=== PATIENT | male | born 1945 | race Caucasian/White ===

== ENCOUNTER → 2016-04-16 | Outpatient (CLI) | payer BC, OTHER ==
[~2016-04-16] MED LIST: ANSHCCR TOP; ASCO10003 PO; DUTACAP PO; HYDR25TA4 PO; HYDR25TA5 PO; KRIL1CAP18 PO; MULT-190 PO; PRLSR20 PO; PSYL48.59 PO; QUIN40TA18 PO; RXC5 PO; VITAMIN D PO; VITAMIN E PO
[2016-04-16 17:46] LABS: BLOOD UREA NITROGEN 27 mg/dl (7-18); BUN/CREATININE RATIO 22.4 (10-20); CARBON DIOXIDE 27 mmol/L (21-32); CHLORIDE 104 mmol/L (98-107); GLUCOSE 96 mg/dl (70-99); SODIUM 139 mmol/L (136-145)
== END | disposition home or self-care (01) ==
LOC: C.LABPVFM 15:32
PROVIDERS: ATTEND Family Medicine
DX: Z12.5 Encounter for screening for malignant neoplasm of prostate (principal); Z11.59 Encounter for screening for other viral diseases; I10 Essential (primary) hypertension

== ENCOUNTER 2016-05-24 19:12 | Emergency (ER) | payer BC, OTHER ==
[~2016-05-24] VITALS: Ht 177.8 cm; Wt 104.7 kg
[~2016-05-24 19:12] MED LIST changes: -ANSHCCR TOP; -ASCO10003 PO; -DUTACAP PO; -HYDR25TA5 PO; -KRIL1CAP18 PO; -MULT-190 PO; -PRLSR20 PO; -PSYL48.59 PO; -QUIN40TA18 PO; -RXC5 PO; -VITAMIN D PO; -VITAMIN E PO
[2016-05-24 19:20] VITALS: BP 177/112; PULSE 89; TEMP 36.7; Ht 177.8 cm; Wt 104.7 kg
[2016-05-24 19:24] VITALS: O2SAT 92
[2016-05-24] MEDS ORDERED: HYDR25TA5 PO (19:58)
--- NOTE | 2016-05-24 20:29 | EMERGENCY ROOM VISIT NOTE ---
History First contact with patient: 19:27 Chief Complaint: RESPIRATORY PROBLEMS Stated Complaint: INHALATION OF PEPPER SPRAY- Nursing Triage Summary: "we have a man in here that we had to subdue". report using 2 cans of pepper spray. "I got a dose of pepper spray in the nose". denies resp difficulty History of Present Illness The patient is a 70 year old male who presents to the Emergency Room with complaints of an exposure to pepper spray. 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 He states that he got a small amount of pepper spray in his nose. He reports that he was wrestling on the ground with the person. He reports some mild body aches but denies any specific injuries. He rates his overall discomfort a 2/10. He does report a small amount of burning in the nose but denies any difficulty breathing. He denies head injury. Review of Systems A complete 10-point Review of Systems was discussed with the patient, with pertinent positives and negatives listed in the History of Present Illness. All remaining Review of Systems questions can be considered negative unless otherwise specified. Social History Smoking Status: Never Smoker Marital Status: Housing Status: lives with family Current/Historical Medications Scheduled Dutasteride-Tamsulosin Hcl (Cat), 1 CAP PO QPM Hydrochlorothiazide (Hydrochlorothiazide), 50 MG PO DAILY Omeprazole (Prilosec), 20 MG PO DAILY Quinapril Hcl (Accupril), 40 MG PO DAILY Allergies Coded Allergies: No Known Allergies (Verified , 09/13/14) Physical Exam Vital Signs Date Time Temp Pulse Resp B/P Pulse Ox O2 Delivery O2 Flow Rate FiO2 05/24/16 19:24 92 Room Air 05/24/16 19:20 36.7 89 18 177/112 92 Room Air Physical Exam VITALS: Vitals are noted on the nurse's note and reviewed by myself. Vital signs stable. GENERAL: This is a 70-year-old male, in no acute distress, nondiaphoretic, well- developed well-nourished. SKIN: Capillary reflex less than 2 seconds. HEENT: Normocephalic. PERRLA. EOMI. Nares patent. Nasal mucosa is slightly erythematous with no bleeding. Mucous membranes moist. Neck is supple without cervical spine tenderness. HEART: Regular rate and rhythm without murmurs gallops or rubs. LUNGS: Clear to auscultation bilaterally without wheezes, rales or rhonchi. ABDOMEN: Positive bowel sounds x 4. Soft, nontender. MUSCULOSKELETAL: No gross musculoskeletal defects. No significant tenderness to palpation. Full range of motion throughout. NEURO: Patient was alert and oriented to person place and time. Medical Decision & Procedures Medical Decision The patient was evaluated as above. Poison control was contacted and they recommended simply using a saline spray. The patient was informed of this. He was instructed to return for any worsening symptoms. He verbalized understanding of my assessment and treatment plan and was discharged home in good condition. Impression Primary Impression: Toxic effect of pepper spray Departure Information Dispostion Home / Self-Care Condition GOOD Referrals Jung Coto M.D. (PCP) Patient Instructions [facility] Additional Instructions Saline spray as needed in the nostrils for any irritation. Follow-up with employee health as needed. Problem Qualifiers Primary Impression: Toxic effect of pepper spray Encounter type: initial encounter Injury intent: accidental or unintentional Qualified Codes: T59.3X1A - Toxic effect of lacrimogenic gas, accidental (unintentional), initial encounter
[2016-05-24] MEDS ORDERED: DUTACAP PO (23:28)
[2016-05-24] MEDS ORDERED: PRLSR20 PO (23:28)
[2016-05-24] MEDS ORDERED: QUIN40TA18 PO (23:29)
[2016-08-07] MEDS ORDERED: ANSHCCR TOP (13:55)
[2016-08-07] MEDS ORDERED: KRIL1CAP18 PO (13:57)
[2016-08-07] MEDS ORDERED: ASCO10003 PO (13:57)
[2016-08-07] MEDS ORDERED: MULT-190 PO (13:57)
[2016-08-07] MEDS ORDERED: VITAMIN D PO (13:57)
[2016-08-07] MEDS ORDERED: VITAMIN E PO (13:57)
[2016-08-07] MEDS ORDERED: PSYL48.59 PO (14:03)
[2016-09-15] MEDS ORDERED: RXC5 PO (07:04)
== END 2016-05-24 20:00 | disposition home or self-care (01) ==
LOC: C.EDB 19:14 → C.EDD 20:00
DX: T59.3X1A Toxic effect of lacrimogenic gas, accidental (unintentional), initial encounter (principal); X58.XXXA Exposure to other specified factors, initial encounter; Y99.0 Civilian activity done for income or pay; Y93.89 Activity, other specified; Z79.899 Other long term (current) drug therapy

== ENCOUNTER → 2016-06-26 | Outpatient (CLI) | payer BC ==
[~2016-06-26] MED LIST changes: +ANSHCCR TOP; +ASCO10003 PO; +DUTACAP PO; -HYDR25TA4 PO; +HYDR25TA5 PO; +KRIL1CAP18 PO; +MULT-190 PO; +PRLSR20 PO; +PSYL48.59 PO; +QUIN40TA18 PO; +RXC5 PO; +VITAMIN D PO; +VITAMIN E PO
--- NOTE | 2016-06-26 10:06 | DIAGNOSTIC IMAGING REPORT ---
ORBIT RADIOGRAPHS 3 VIEWS HISTORY: pre-MRI screening. COMPARISON: None. FINDINGS: There are no radiopaque foreign bodies identified within the orbits. IMPRESSION: No radiopaque foreign bodies identified within the orbits. Electronically signed by: Bon Thomas M.D. 06/26/2016 10:05 AM Dictated Date/Time: 06/26/2016 10:05 AM
--- NOTE | 2016-06-26 11:00 | DIAGNOSTIC IMAGING REPORT ---
MRI right shoulder RIGHT UPPER EXT JOINT WITHOUT CLINICAL HISTORY: RIGHT SHOULDER PAIN, ROTATOR CUFF TEAR Right posttraumatic pain TECHNIQUE: MRI multi axial acquisition COMPARISON STUDY: None FINDINGS: Severe degenerative change throughout all major structures of the right shoulder. Severe degenerative changes of the articular services throughout. Subchondral cyst formation is identified within the humeral head and to lesser extent glenoid. Degenerative subchondral cyst formation is also seen in the anterior margin of the humeral head. Rotator cuff shows evidence for full-thickness tear of the supraspinatus tendon at the musculotendinous junction. There is a small amount of fluid within the subdeltoid bursa. There is moderate tendinopathy involving subscapularis tendons. There is moderate tendinopathy with a potential partial tear of the infraspinatus tendon. Biceps tendon shows evidence for a partial thickness tear at its superior margin with moderate degree of surrounding edematous change. A joint effusion is present. There are findings of severe degenerative substance loss of all components of the glenoid labrum. The may be a secondary cellulitis. IMPRESSION: 1. Severe degenerative change right shoulder. 2. Full-thickness tear central aspect of the supraspinatus musculotendinous junction with evidence for superimposed tendinopathy. 3. Partial thickness tear infraspinatus tendon. 4. Mild subscapularis tendinopathy. 5. Considerable degenerative changes of the articular services of the glenohumeral joint with considerable deterioration and substance loss of the glenoid labrum. 6. Probable partial tear biceps tendon 7. Joint effusion with findings consistent with a secondary synovitis. Electronically signed by: Darnell Troy M.D. 06/26/2016 10:58 AM Dictated Date/Time: 06/26/2016 10:52 AM
== END | disposition home or self-care (01) ==
LOC: C.MRIBC 09:42
PROVIDERS: ATTEND Orthopaedic Surgery
DX: S46.891A Other injury of other muscles, fascia and tendons at shoulder and upper arm level, right arm, initial encounter (principal); X58.XXXA Exposure to other specified factors, initial encounter

== ENCOUNTER → 2016-07-25 | Outpatient (CLI) | payer BC ==
[2016-07-25 17:38] LABS: HEMATOCRIT 45.5 % (42-52); MEAN CELL VOLUME 89.7 fL (80-100); MEAN CORPUSCULAR HEMOGLOBIN 30.8 pg (25-34); MEAN CORPUSCULAR HGB CONC 34.3 g/dl (32-36); MEAN PLATELET VOLUME 9.8 fL (7.4-10.4); PLATELET COUNT 251 K/uL (130-400); RED BLOOD COUNT 5.07 M/uL (4.7-6.1); WHITE BLOOD COUNT 8.69 K/uL (4.8-10.8)
[2016-07-25 18:15] LABS: LYME DISEASE AB IGG NEG (NEG); LYME DISEASE AB IGM NEG (NEG)
[2016-07-25 19:05] LABS: ALT/SGPT 38 U/L (12-78); AST/SGOT 26 U/L (15-37); BLOOD UREA NITROGEN 19 mg/dl (7-18); BUN/CREATININE RATIO 19.5 (10-20); CALCIUM 8.8 mg/dl (8.5-10.1); CARBON DIOXIDE 26 mmol/L (21-32); CHLORIDE 105 mmol/L (98-107); CREATININE 0.98 mg/dl (0.60-1.40); GLUCOSE 88 mg/dl (70-99); POTASSIUM 3.7 mmol/L (3.5-5.1); SODIUM 141 mmol/L (136-145)
[2016-07-25 19:17] LABS: ALB/GLOB RATIO 1.3 (0.9-2); ALKALINE PHOSPHATASE 86 U/L (45-117); THYROID STIMULATING HORMONE 0.715 uIu/ml (0.300-4.500)
[2016-07-27 16:02] LABS: LEAD BLOOD 5 MCG/DL (0-9)
[2016-07-31 03:31] LABS: ANTI-CENTROMERE AB <1.0 NEG AI (<1.0 NEG); ANTI-SS-A <1.0 NEG AI (<1.0 NEG); ANTI-SS-B 1.0 POS AI (<1.0 NEG); DNA ds CRITHIDIA NEGATIVE (NEGATIVE); MICROSOMAL AB <1 IU/ML (<9); Sm Antibody <1.0 NEG AI (<1.0 NEG)
== END | disposition home or self-care (01) ==
LOC: C.LABPVFM 13:36
PROVIDERS: ATTEND Family Medicine
DX: R53.83 Other fatigue (principal); M79.1 Myalgia

== ENCOUNTER → 2016-08-07 | Outpatient (CLI) | payer BC, OTHER | END | disposition home or self-care (01) | LOC: C.CTS 13:24 | PROVIDERS: ATTEND Orthopaedic Surgery | DX: M19.011 Primary osteoarthritis, right shoulder (principal) ==

== ENCOUNTER → 2016-08-23 | Outpatient (CLI) | payer BC, OTHER ==
[2016-08-23 18:04] LABS: BASO % 0.3 %; BASO ABS # 0.03 K/uL (0-0.2); COMPLETE YES; HEMATOCRIT 42.8 % (42-52); IG% 0.1 %; LYMPH ABS # 3.04 K/uL (1.2-3.4); MEAN CELL VOLUME 89.5 fL (80-100); MEAN CORPUSCULAR HGB CONC 35.7 g/dl (32-36); MEAN PLATELET VOLUME 9.4 fL (7.4-10.4); MONO % 8.8 %; NEUT % 55.8 %; PLATELET COUNT 241 K/uL (130-400); RED BLOOD COUNT 4.78 M/uL (4.7-6.1)
[2016-08-23 18:31] LABS: ALT/SGPT 40 U/L (12-78); BLOOD UREA NITROGEN 15 mg/dl (7-18); BUN/CREATININE RATIO 17.1 (10-20); CALCIUM 9.2 mg/dl (8.5-10.1); CARBON DIOXIDE 30 mmol/L (21-32); CHLORIDE 105 mmol/L (98-107); GLUCOSE 107 mg/dl (70-99); POTASSIUM 3.9 mmol/L (3.5-5.1); SODIUM 140 mmol/L (136-145)
[2016-08-23 18:33] LABS: ALB/GLOB RATIO 1.2 (0.9-2); ALKALINE PHOSPHATASE 86 U/L (45-117); AST/SGOT 26 U/L (15-37); C-REACTIVE PROTEIN < 0.29 mg/dl (0-0.29)
[2016-08-23 19:24] LABS: LYME DISEASE AB IGG NEG (NEG); LYME DISEASE AB IGM NEG (NEG)
== END | disposition home or self-care (01) ==
LOC: C.LABPVFM 06:00
PROVIDERS: ATTEND Nurse Practitioner Family
DX: R53.83 Other fatigue (principal)

== ENCOUNTER 2016-09-14 10:58 | Inpatient (IN) | payer BC, OTHER ==
[2016-08-07 13:58] VITALS: Ht 177.8 cm; Wt 100.3 kg
--- NOTE | 2016-08-07 14:29 | PAT Medication Instructions ---
Service Date Aug 07, 2016. Current Home Medication List Ascorbic Acid (Vitamin C), 1,000 MG PO QA Dutasteride-Tamsulosin Hcl (Cat), 1 CAP PO QPM Hydrochlorothiazide (Hydrochlorothiazide), 50 MG PO QAM Hydrocortisone (Proctosol Hc), 1 APPLN TOP prn Krill Oil (Megared [place]-3 Krill Oil 500 mg), 1 TAB PO NOON Ocuvite Preservision (Ocuvite Preservision), 1 TAB PO NOON Omeprazole (Prilosec), 20 MG PO QAM Psyllium (Metamucil), 1 DOSE PO BID Quinapril Hcl (Accupril), 80 MG PO HS [Vitamin D], 1 TAB PO QAM [Vitamin E], 1 TAB PO QAM Medication Instructions For Your Scheduled Surgery - Hold the following medications 2 weeks prior to surgery: Krill Oil (Megared [place]-3 Krill Oil 500 mg), 1 TAB PO NOON [Vitamin E], 1 TAB PO QAM - Hold the following medications 24 hours prior to surgery: Quinapril Hcl (Accupril), 80 MG PO HS Hydrocortisone (Proctosol Hc), 1 APPLN TOP prn - Hold the following medications the morning of surgery: [Vitamin D], 1 TAB PO QAM Hydrochlorothiazide (Hydrochlorothiazide), 50 MG PO QAM Psyllium (Metamucil), 1 DOSE PO BID Ocuvite Preservision (Ocuvite Preservision), 1 TAB PO NOON Ascorbic Acid (Vitamin C), 1,000 MG PO QAM - Take the following medications the morning of surgery with a sip of water OTHERWISE NOTHING TO EAT OR DRINK AFTER MIDNIGHT: Omeprazole (Prilosec), 20 MG PO QAM - Take the following medications as scheduled the night before surgery: Dutasteride-Tamsulosin Hcl (Cat), 1 CAP PO QPM Psyllium (Metamucil), 1 DOSE PO BID If you have any questions please call us at [phone] or [phone] or [phone]
--- NOTE | 2016-08-07 15:13 | DIAGNOSTIC IMAGING REPORT ---
CHEST 2 VIEWS ROUTINE HISTORY: Preop. COMPARISON: None. FINDINGS: The lungs are clear. Cardiac silhouette is top normal in size. No pleural effusions. No pneumothorax. IMPRESSION: No acute process. Electronically signed by: Bon Thomas M.D. 08/07/2016 3:12 PM Dictated Date/Time: 08/07/2016 3:10 PM
[2016-08-07 15:20] LABS: BASO % 0.3 %; BASO ABS # 0.03 K/uL (0-0.2); COMPLETE YES; EOS % 1.5 %; HEMATOCRIT 43.2 % (42-52); IG% 0.3 %; LYMPH % 32.1 %; LYMPH ABS # 2.92 K/uL (1.2-3.4); MEAN CELL VOLUME 89.4 fL (80-100); MEAN CORPUSCULAR HEMOGLOBIN 31.1 pg (25-34); MEAN CORPUSCULAR HGB CONC 34.7 g/dl (32-36); MEAN PLATELET VOLUME 9.2 fL (7.4-10.4); MONO % 6.4 %; NEUT % 59.4 %; PLATELET COUNT 239 K/uL (130-400); RED BLOOD COUNT 4.83 M/uL (4.7-6.1)
[2016-08-07 15:22] LABS: URINE APPEARANCE CLEAR (CLEAR); URINE BILIRUBIN NEG (NEG); URINE COLOR YELLOW; URINE NITRITE NEG (NEG); URINE SPECIFIC GRAVITY 1.024 (1.000-1.030); UROBILINOGEN NEG (NEG)
[2016-08-07 15:26] LABS: MANUAL MICROSCOPIC REQUIRED? NO; REVIEW REQ? NO
[2016-08-07 15:30] LABS: PROTHROMBIN TIME (PATIENT) 10.5 SECONDS (9.0-12.0)
[~2016-09-14] VITALS: Ht 177.8 cm; Wt 100.3 kg
[2016-09-14] MEDS: TRANEXAMIC ACID INJ 1,000 MG in SODIUM CHLORIDE 0.9% 100ML 100 ML IV SCH ×2 (06:30→13:13)
--- NOTE | 2016-09-14 09:57 | History & Physical Bridge Note ---
H&P Re-Evaluation Bridge Note: I have examined the patient, reviewed the History & Physical and in the interval since the performance of the History & Physical I have noted the following changes of clinical significance: No changes noted
--- NOTE | 2016-09-14 10:00 | History and Physical ---
History & Physical Date Sep 14, 2016. Chief Complaint Osteoarthritis Right Shoulder History of Present Illness The patient is a 70 year old male with complaints of chronic right shoulder pain Past Medical/Surgical History Hypertension Additional History Hepatic Disease: No Endocrine Disorder: No Kidney Disease: No Hypertension: Yes Heart Disease: No Bleeding Tendencies: No Infectious Diseases: No Allergies Coded Allergies: No Known Allergies (Verified , 08/07/16) Home Medications Scheduled Ascorbic Acid (Vitamin C), 1,000 MG PO QA Dutasteride-Tamsulosin Hcl (Cat), 1 CAP PO QPM Hydrochlorothiazide (Hydrochlorothiazide), 50 MG PO QAM Hydrocortisone (Proctosol Hc), 1 APPLN TOP prn Krill Oil (Megared [place]-3 Krill Oil 500 mg), 1 TAB PO NOON Ocuvite Preservision (Ocuvite Preservision), 1 TAB PO NOON Omeprazole (Prilosec), 20 MG PO QAM Psyllium (Metamucil), 1 DOSE PO BID Quinapril Hcl (Accupril), 80 MG PO HS [Vitamin D], 1 TAB PO QAM [Vitamin E], 1 TAB PO QAM Physical Examination Skin: warm/dry, no rash Eyes: normal inspection, EOMI, sclerae normal ENT: normal ENT inspection, pharynx normal Head: normocephalic, atraumatic Neck: supple, no adenopathy, trachea midline Respiratory/Chest: lungs clear, normal breath sounds, no respiratory distress Cardiovascular: regular rate, rhythm, no edema, no murmur Abdomen / GI: normal bowel sounds, non tender Back: normal inspection Extremities: normal inspection, normal range of motion Neurologic/Psych: no motor/sensory deficits, alert, normal reflexes, oriented x 3 Addiitonal Comments: Limited shoulder range of motion with crepitis Diagnosis Osteoarthritis Right Knee ASA Classification: ASA Class II Plan of Treatment Right Total Shoulder
[~2016-09-14 10:58] MED LIST changes: +ACETAMINOPHEN 500 MG TAB PO SCH; +ATROPINE SULFATE 0.1 MG/ML 5ML SYR IV PRN; +CEFAZOLIN 2000 MG/60 ML D5W 60 ML IV SCH; +EpHEDrine SULFATE INJ 50 MG/ML AMP IV PRN; +FAMOTIDINE 20 MG TAB PO SCH; +GABAPENTIN 300 MG CAP PO SCH; +LACTATED RINGER'S 1000ML 1,000 ML IV SCH; +LACTATED RINGER'S 1000ML IV SCH; +ONDANSETRON INJ 2 MG/ML 2 ML VIAL IV PRN; +ROPIVACAINE 0.5% 5 MG/ML 30 ML VIAL ONE; +ROPIVACAINE 5MG/ML 30 ML 150 MG, BUPIVACAINE/EPINEPHR 0.5% MPF 30 ML, KETOROLAC TROMETH... INFIL SCH; -RXC5 PO
[2016-09-14] MEDS ORDERED: FENTANYL CITRATE INJ 50 MCG/1 ML 2 ML VIAL ONE ×2 (11:30→16:28)
[2016-09-14] MEDS ORDERED: MIDAZOLAM HCL 1 MG/ML 2ML VIAL ONE (11:30)
[2016-09-14 11:45] VITALS: BP 165/92; PULSE 60; TEMP 36.7; O2SAT 97
[2016-09-14] MEDS ORDERED: ORTHO JOINT ANESTHETIC ONE (12:43)
[2016-09-14] MEDS ORDERED: BACITRACIN 50000 UNIT VIAL ONE (12:43)
[2016-09-14] MEDS ORDERED: ROCURONIUM BROMIDE 10 MG/ML 5 ML VIAL ONE (14:15)
[2016-09-14] MEDS ORDERED: EpHEDrine SULFATE 50MG/5ML SYR ONE (14:15)
[2016-09-14] MEDS ORDERED: PROPOFOL IV EMULSION 10 MG/ML 20 ML VIAL IV ONE (14:15)
[2016-09-14] MEDS ORDERED: ONDANSETRON INJ 2 MG/ML 2 ML VIAL ONE (14:15)
[2016-09-14] MEDS ORDERED: DEXAMETHASONE SOD INJ 4 MG/ML VIAL ONE (14:15)
[2016-09-14] MEDS ORDERED: GLYCOPYRROLATE INJ 0.2 MG/ML VIAL ONE (15:41)
[2016-09-14] MEDS ORDERED: NEOSTIGMINE METHYLSULFATE 5 MG/5 ML SYR ONE (15:41)
[2016-09-14] MEDS ORDERED: METOCLOPRAMIDE HCL INJ 5 MG/ML 2 ML VIAL IV PRN (15:45)
[2016-09-14] MEDS ORDERED: BISACODYL 10 MG SUPP PR PRN (15:45)
[2016-09-14] MEDS ORDERED: SOD PHOSPHATE/SOD BIPHOSPHATE ENEMA 132 ML BTL PR PRN (15:45)
[2016-09-14] MEDS ORDERED: MAGNESIUM HYDROXIDE SUSP 30 ML UDC PO PRN (15:45)
[2016-09-14] MEDS ORDERED: NALOXONE HCL 0.4 MG/1 ML VIAL/CARP IV PRN (15:45)
[2016-09-14] MEDS ORDERED: MoRPHine SULFATE 2 MG/ML CARP IV PRN (15:45)
--- NOTE | 2016-09-14 15:45 | [facility] Post Operative Brief Note ---
Immediate Operative Summary Operative Date Sep 14, 2016. Pre-Operative Diagnosis Osteoarthritis Right Shoulder Post-Operative Diagnosis Osteoarthritis Right Shoulder Procedure(s) Performed Right Total Shoulder Arthroplasty, cemented Surgeon Dr. Josh Pulliam Senior Master Scheduler Surgeon(s) Jim Yoo PA-C Estimated Blood Loss 250mL Findings as above Specimens Permanent specimens A: Right humeral head Complication(s) None Disposition Recovery Room / PACU
[2016-09-14] MEDS ORDERED: HYDROmorphone INJ 1 MG/ML SYR IV PRN (16:30)
[2016-09-14] MEDS ORDERED: FENTANYL CITRATE INJ 50 MCG/1 ML 2 ML VIAL IV PRN (16:30)
--- NOTE | 2016-09-14 16:51 | OPERATIVE REPORT ---
DATE OF OPERATION: 09/14/2016 PREOPERATIVE DIAGNOSIS: Primary osteoarthritis of the right shoulder. POSTOPERATIVE DIAGNOSIS: Same. PROCEDURE: Right total shoulder arthroplasty. SURGEON: Dr. Josh Pulliam. PROPERTY DISPOSAL MANAGER: Tyree Yoo PA-C, whose assistance was necessary for positioning of the arm and helping with retraction. ANESTHESIA: General with a right interscalene nerve block. COMPLICATIONS: None. CONDITION: Stable to PACU. IMPLANTS USED: I used a [employer] comprehensive right total shoulder arthroplasty system with a size 13 mini pressfit stem, a 46 x 18 eccentric humeral head and a medium glenoid. The glenoid was cemented with Palacos-G cement. INDICATIONS: Kyler is a pleasant 70-year-old male who has been having a 2-year history of increasing pain and tightness of his right shoulder. He did have a rotator cuff repair done 20 years ago. MRI showed an intact rotator cuff and he elected to undergo a right total shoulder arthroplasty. DESCRIPTION OF PROCEDURE: On 09/14/2016, he arrived at [facility] for the above procedure. He was seen in the preoperative holding area and the operative extremity was identified and signed. He was given a preoperative antibiotic and a right interscalene nerve block. He was taken back to the operating room, laid on the table in supine position and put under general anesthesia. The right shoulder was prepped and draped in sterile fashion. Time-out was done and the patient and operative extremity was properly identified. A deltopectoral approach was used. Dissection was taken down through the fascia and the anterior shoulder was exposed. The long head of biceps tendon was tenodesed to the upper border of the pec major. The subscapularis was then tenotomized off the lesser tuberosity. Soft tissue releases were done and the proximal humerus was exposed. Sequential reaming up to a size 13 reamer was done. Off the final reamer, a proximal humeral resection guide was placed and the proximal humerus was resected at 135 degrees of inclination and 30 degrees of retroversion. Additional osteophytes were removed and the glenoid was exposed. Time was spent doing an anterior superior labral release. I did not release the posterior labrum or the anterior inferior glenohumeral ligament. The [employer] signature guide was then snapped on to the anterior aspect of the glenoid. The guidepin was then placed in the total shoulder arthroplasty hole. The glenoid measured to be a size medium and the glenoid was reamed. The central Regenerex peg hole was then drilled followed by the peripheral peg holes. A trial glenoid seemed to be a good fit. The final medium sized glenoid was then cemented in place with Palacos-G cement. Once cement had hardened, the proximal humerus was exposed. Sequential broaching up to a size 13 broach was done. A 46 x 18 mm eccentric head was trialed and seemed to be a good fit. I had a 50% translation both posteriorly and inferiorly. I was able to get through a full range of motion. The trial components were then removed. The final size 13 implant was impacted into place followed by the final 46-mm eccentric head. The shoulder was reduced. The surrounding soft tissues were injected with 100 mL of an orthopedic pain control cocktail. The entire joint was then irrigated with 3 liters of normal saline solution with bacitracin. The subscapularis was tenodesed back to the lesser tuberosity with transosseous FiberWire sutures. Two FiberWire sutures were placed in the lateral rotator interval. The axillary nerve was palpated. A drain was placed. The skin was then closed with 2-0 Vicryl and 0 Prolene suture in a Prineo dressing. He was then placed in a regular arm sling, extubated, transferred to a litter and taken to the postanesthesia care unit in stable condition. He tolerated the procedure well. I attest to the content of the Intraoperative Record and any orders documented therein. Any exception s are noted below.
--- NOTE | 2016-09-14 16:52 | DIAGNOSTIC IMAGING REPORT ---
RIGHT SHOULDER MIN 2 VIEWS ROUTINE CLINICAL HISTORY: Post shoulder surgery Right COMPARISON STUDY: Right shoulder 06/20/2016. FINDINGS: The patient is status post a right total shoulder arthroplasty. The hardware appears intact. No definite fracture or dislocation. A surgical drain is in place. Questionable cortical step-off at the scapular tip on the Y view is likely positional. IMPRESSION: Status post right total arthroplasty. Questionable cortical step-off at the scapular tip on the Y view is likely positional. Recommend correlation for pain to exclude the less likely possibility of a fracture. Electronically signed by: Bon Thomas M.D. 09/14/2016 4:50 PM Dictated Date/Time: 09/14/2016 4:48 PM
--- NOTE | 2016-09-14 17:03 | Anesthesiology Progress Note ---
Anesthesia Post Op Note Date & Time Sep 14, 2016 at 17:03 Vital Signs Pain Intensity: 4 Vital Signs Past 12 Hours Date Time Temp Pulse Resp B/P (MAP) Pulse Ox O2 Delivery O2 Flow Rate FiO2 09/14/16 16:55 36.8 64 16 138/72 96 Nasal Cannula 3 09/14/16 16:45 45 16 138/84 96 3 09/14/16 16:35 53 16 131/77 96 Oxymask 10 09/14/16 16:25 56 16 125/82 97 Oxymask 10 09/14/16 16:15 56 16 144/95 97 Oxymask 10 09/14/16 16:07 36. 60 16 162/85 98 Oxymask 10 09/14/16 11:45 36.7 60 18 165/92 97 Room Air Notes Mental Status: alert / awake / arousable, participated in evaluation Pt Amnestic to Procedure: Yes Nausea / Vomiting: adequately controlled Pain: adequately controlled Airway Patency, RR, SpO2: stable & adequate BP & HR: stable & adequate Hydration State: stable & adequate Anesthetic Complications: no major complications apparent
[2016-09-14 17:20] VITALS: BP 149/80; PULSE 48; TEMP 36.4; O2SAT 93; O2SAT 95
[2016-09-14 17:50] VITALS: BP 155/82; PULSE 48; TEMP 36.3; O2SAT 95
[2016-09-14] MEDS: ONDANSETRON INJ 2 MG/ML 2 ML VIAL IV PRN (18:00)
[2016-09-14] MEDS: POTASSIUM CHLORIDE INJ 10 MEQ in SODIUM CHLORIDE 0.9% 1000ML 1,000 ML IV SCH (18:05)
[2016-09-14 18:18] VITALS: BP 150/95; PULSE 59; TEMP 36.3; O2SAT 97
[2016-09-14] MEDS ORDERED: NURSING DECISION MEDICATION ORDER SCH (19:15)
[2016-09-14 19:18] VITALS: BP 134/88; PULSE 73; TEMP 36.4; O2SAT 96
[2016-09-14] MEDS ORDERED: COUGH DROP (SUGAR FREE) LOZ 24 LOZ/1 BOX ONE (19:20)
[2016-09-14] MEDS ORDERED: COUGH DROP (SUGAR FREE) LOZ 24 LOZ/1 BOX PO PRN (19:30)
[2016-09-14] MEDS: KETOROLAC TROMETHAMINE 15 MG/ML VIAL IV. SCH (20:18)
[2016-09-14] MEDS: CEFAZOLIN IV 2,000 MG in DEXTROSE 5% 50ML 50 ML IV SCH (20:18)
[2016-09-14] MEDS ORDERED: QUINAPRIL HCL 10 MG TAB PO SCH (21:00)
[2016-09-14] MEDS ORDERED: QUINAPRIL 40 MG PO SCH (21:00)
[2016-09-14] MEDS ORDERED: SENNA 8.6 MG TAB PO SCH (21:00)
[2016-09-14] MEDS: PANTOprazole SOD 40 MG TAB PO SCH (21:02)
[2016-09-14] MEDS: DOCUSATE SODIUM 100 MG CAP PO SCH (21:04)
[2016-09-14 22:56] VITALS: BP 134/79; PULSE 59; TEMP 36.4; O2SAT 95
[2016-09-14] MEDS: ACETAMINOPHEN IV 1,000 MG in EMPTY BAG 0 ML IV SCH (23:00)
[2016-09-15] MEDS: KETOROLAC TROMETHAMINE 15 MG/ML VIAL IV. SCH ×2 (02:25→07:53)
[2016-09-15 03:30] VITALS: BP 126/75; PULSE 59; TEMP 36.4; O2SAT 94
[2016-09-15] MEDS: POTASSIUM CHLORIDE INJ 10 MEQ in SODIUM CHLORIDE 0.9% 1000ML 1,000 ML IV SCH (03:34)
[2016-09-15] MEDS: CEFAZOLIN IV 2,000 MG in DEXTROSE 5% 50ML 50 ML IV SCH (03:34)
[2016-09-15] MEDS: OXYCODONE HCL IR 5 MG TAB (IMMEDIATE RELEASE) PO PRN ×2 (03:40→13:12)
[2016-09-15] MEDS: ACETAMINOPHEN IV 1,000 MG in EMPTY BAG 0 ML IV SCH (05:58)
[2016-09-15 06:28] LABS: HEMATOCRIT 38.8 % (42-52); MEAN CORPUSCULAR HEMOGLOBIN 30.8 pg (25-34); MEAN CORPUSCULAR HGB CONC 35.1 g/dl (32-36); MEAN PLATELET VOLUME 8.9 fL (7.4-10.4); PLATELET COUNT 194 K/uL (130-400); RED BLOOD COUNT 4.41 M/uL (4.7-6.1); WHITE BLOOD COUNT 14.36 K/uL (4.8-10.8)
[2016-09-15 07:04] LABS: BUN/CREATININE RATIO 16.9 (10-20); CALCIUM 8.2 mg/dl (8.5-10.1); POTASSIUM 3.4 mmol/L (3.5-5.1)
[2016-09-15] MEDS ORDERED: RXC5 PO (07:04)
--- NOTE | 2016-09-15 07:05 | Discharge Instructions ---
Discharge Instructions Date of Service Sep 15, 2016. Admission Reason for Admission: Right Shoulder Degenerative Joint Disease Discharge Discharge Diagnosis / Problem: Right Total Shoulder Discharge Goals Goal(s): Decrease discomfort, Improve function Activity Recommendations Activity Limitations: as noted below . Instructions / Follow-Up Instructions / Follow-Up Activity and Therapy Recommendations: * Wear your sling for 3 weeks, unless otherwise instructed. You may remove your sling to shower and to dress, but otherwise, you should be in your sling at all times, including while sleeping * The shoulder replacement is very stable and you can use your hand while in the sling * Physical Therapy should start about 3-5 days from your day of surgery. Therapy will last about 8-12 weeks * You were shown a series of exercises in the hospital. Do these exercises daily including the exercises you were shown in physical therapy. Medications: * Narcotic You will likely be sent home from the hospital with a prescription for the narcotic pain medication that worked best throughout your stay. * Other medications may be prescribed for specific circumstances. If you have any questions, please call the office at . * Resume previous home medications unless otherwise instructed Dressing Care: You will likely have a Prineo dressing covering your incision. This looks like a glued on clear mesh dressing. Do not remove this dressing until you follow- up in my office in 2-3 weeks. Its pretty hard to peel it off. You may leave the Prineo dressing uncovered or cover it if it is draining a little bit. No further dressing care is required Showering: You may shower 3 days from the day of surgery. Leave the Prineo dressing intact and let the soapy shower water run over it. Do not scrub or soak the dressing or the incision. Things To Watch For: * Drainage from the incision site that occurs more than one week after your surgery. * Increased redness at the incision site. * Fever above 102 degrees Fahrenheit. * Unusual chest pain or shortness of breath. * Call [facility] at with any of the above problems Follow-Up Visit: Follow-up with Dr. Pulliam 2-3 weeks after your day of surgery. An appointment was probably scheduled when you signed-up for surgery in the office. If you have any questions call Office Instructions: More detailed instructions as well as Frequently Asked Questions were provided in a folder by our office when you signed-up for surgery. Please review these instructions when you get home. If you have any further questions or concerns, please feel free to call the office at [phone] Current Hospital Diet Patient's current hospital diet: Regular Diet Discharge Diet Recommended Diet: Regular Diet Procedures Procedures Performed: Right Total Shoulder Arthroplasty, cemented Pending Studies Studies pending at discharge: no Medical Emergencies . Who to Call and When: Medical Emergencies: If at any time you feel your situation is an emergency, please call 911 immediately. . Non-Emergent Contact Non-Emergency issues call your: Surgeon Call Non-Emergent contact if: wound has increased drainage, wound has increased redness . "Provider Documentation" section prepared by Josh Pulliam. . VTE Core Measure Inpt VTE Proph given/why not?: Treatment not indicated
[2016-09-15 07:30] VITALS: BP 114/70; PULSE 58; TEMP 36.7; O2SAT 97
--- NOTE | 2016-09-15 08:17 | PROGRESS NOTE ---
DATE: 09/15/2016 CHIEF COMPLAINT: Status post right total shoulder arthroplasty, postop day #1. PROGRESS: Kyler was seen and examined at bedside today. Overall, he is doing very well. He says he does not have much pain in the shoulder. He was able to get some sleep last night and has no complaints. PHYSICAL EXAMINATION: The dressing is clean and dry. The drain is to suction. He is wearing a sling as instructed. His radial, median and ulnar nerves were all checked and intact at his wrist. The axillary nerve was not checked yet. LABORATORY DATA: Show an H&H of 13.6 and 38.8. His glucose is 114. His vital signs are all stable on room air and he is voiding on his own. X-rays postoperatively of the right shoulder show the prosthesis to be in anatomical alignment without any evidence of fracture, dislocation or loosening. There is a questionable cortical disruption off the very inferior aspect of the scapula. He was not having any pain in that area on physical examination this morning. I believe it is just an artifact and not a fracture. IMPRESSION: Status post right total shoulder arthroplasty, postop day #1. PLAN: At this point, he is doing fairly well. His pain is controlled. He will be seen by physical therapy this morning and do hand, wrist, elbow and pendulum exercises. The nursing staff can change the dressing, pull the drain and discharge him to home later this morning.
[2016-09-15] MEDS: DOCUSATE SODIUM 100 MG CAP PO SCH (08:46)
--- NOTE | 2016-09-15 08:56 | DISCHARGE SUMMARY ---
DISCHARGE DIAGNOSIS: Primary osteoarthritis of the right shoulder. PROCEDURE: Right total shoulder arthroplasty on 09/14/[address] Josh Pulliam. DISCHARGE INSTRUCTIONS: 1. Oxycodone 5-10 mg every 4 hours as needed for pain. 2. Cat 1 cap in the evening. 3. Hydrochlorothiazide 50 mg daily. 4. Hydrocortisone cream as needed. 5. Prilosec 20 mg daily. 6. Accupril 80 mg at night. 7. Right arm sling for 3 weeks. 8. Follow up with Dr. Pulliam in 2 weeks. 9. Call the office of Dr. Pulliam with any questions or concerns. HOSPITAL COURSE: Kyler is a pleasant 70-year-old male who presented to my office with a 2-year history of right shoulder pain and stiffness. He had a rotator cuff repair about 20 years ago. X-rays showed advanced degenerative arthritis of the right shoulder. MRI showed an intact rotator cuff. He elected to undergo a right total shoulder arthroplasty. On 09/14/2016, he arrived at [facility] and underwent a right shoulder replacement without complications. He had a general anesthetic and a right interscalene nerve block. Postoperatively, he was discharged to general orthopedic floor. His hospital course was uneventful. On postop day #1, his H&H was stable at 13.6 and 38.8. He was having very little pain in his shoulder and he was neurovascularly intact. He was seen by physical therapy and able to do hand, wrist, elbow and pendulum exercises. The nursing staff changed the dressing, pulled the drain, and he was subsequently discharged to home with the above instructions.
[2016-09-15] MEDS ORDERED: MULTIVITAMIN TAB PO SCH (09:00)
[2016-09-15] MEDS ORDERED: HYDROCHLOROTHIAZIDE 25 MG TAB PO SCH (09:00)
[2016-09-15] MEDS: PANTOprazole SOD 40 MG TAB PO SCH (10:06)
[2016-09-15] MEDS: ONDANSETRON INJ 2 MG/ML 2 ML VIAL IV PRN (10:09)
[2016-09-15 11:01] VITALS: BP 114/70; PULSE 58; TEMP 36.7; O2SAT 97
[2016-09-15 12:00] VITALS: BP 132/81; PULSE 53; O2SAT 97
== END 2016-09-15 13:29 | disposition home or self-care (01) | DRG 483 ==
LOC: C.ACU 10:58 → C.3E 11:50 → ENRESERV 16:48
PROVIDERS: ADMIT Orthopaedic Surgery; ATTEND Orthopaedic Surgery
PROC: 0RRJ0JZ Replacement of Right Shoulder Joint with Synthetic Substitute, Open Approach (ICD-10-PCS; principal; 2016-09-14 13:35)
DX: M19.011 Primary osteoarthritis, right shoulder (principal); I10 Essential (primary) hypertension; Z79.899 Other long term (current) drug therapy

== ENCOUNTER → 2017-04-15 | Outpatient (CLI) | payer BC, OTHER ==
[~2017-04-15] MED LIST changes: -ACETAMINOPHEN 500 MG TAB PO SCH; -ATROPINE SULFATE 0.1 MG/ML 5ML SYR IV PRN; -CEFAZOLIN 2000 MG/60 ML D5W 60 ML IV SCH; -EpHEDrine SULFATE INJ 50 MG/ML AMP IV PRN; -FAMOTIDINE 20 MG TAB PO SCH; -GABAPENTIN 300 MG CAP PO SCH; -LACTATED RINGER'S 1000ML 1,000 ML IV SCH; -LACTATED RINGER'S 1000ML IV SCH; -ONDANSETRON INJ 2 MG/ML 2 ML VIAL IV PRN; -ROPIVACAINE 0.5% 5 MG/ML 30 ML VIAL ONE; -ROPIVACAINE 5MG/ML 30 ML 150 MG, BUPIVACAINE/EPINEPHR 0.5% MPF 30 ML, KETOROLAC TROMETH... INFIL SCH; +RXC5 PO
== END | disposition home or self-care (01) ==
LOC: C.LABPVFM 16:12
PROVIDERS: ATTEND Urology
DX: R97.20 Elevated prostate specific antigen [PSA] (principal)

== ENCOUNTER → 2017-05-09 | Outpatient (CLI) | payer BC ==
[2017-05-09 17:45] LABS: BLOOD UREA NITROGEN 18 mg/dl (7-18); CREATININE 0.88 mg/dl (0.60-1.40)
== END | disposition home or self-care (01) ==
LOC: C.LABPVFM 14:47
PROVIDERS: ATTEND Urology
DX: R97.20 Elevated prostate specific antigen [PSA] (principal)

== ENCOUNTER → 2017-05-17 | Outpatient (CLI) | payer BC ==
[~2017-05-17] MED LIST changes: +GADAVIST IV PRN
--- NOTE | 2017-05-17 09:25 | DIAGNOSTIC IMAGING REPORT ---
PROSTATE MRI COMBO CLINICAL HISTORY: Elevated prostate specific antigen. PSA 4.17 ng/mL. COMPARISON STUDY: No priors. TECHNIQUE: Multisequence, multiplanar MR imaging of the prostate was performed before and after the administration of intravenous contrast. Additional postprocessing was performed on a separate Metaconomy workstation by the radiologist for 3-D volumetric segmentation of the prostate and contouring of region(s) of interest (MYLES) for targeting. IV contrast: 10 cc of Gadavist. FINDINGS: Prostate: The prostate measures 5.0 cm in transverse diameter. ([employer] prostate boundary segmentation volume 59 cc). Moderate to severe changes of benign prostatic hyperplasia. Precontrast T1 weighted imaging demonstrates no evidence of intrinsic T1 hyperintensity to suggest hemorrhage. Suspicious lesion(s) described below: Lesion ([employer] MYLES) 1: Location: Left posterolateral peripheral zone at the mid gland. The lesion does not extend across the midline. Size: 15 mm (as measured on ADC for PZ lesion and T2WI for TZ lesion) T2W: 4. Circumscribed, homogeneous moderately hypointense lesion. This abuts the capsule, and there may be focal extracapsular extension seen on axial T2-weighted image #34. This also abuts the neurovascular bundle with possible invasion as seen on image #32. DWI: 5. Focal markedly hypointense on ADC and markedly hyperintense on high b-value DWI. DCE: Positive. Focal enhancement corresponding to a suspicious finding, earlier or contemporaneous with adjacent normal tissue. PI-RADS: 5. Clinically significant cancer is highly likely to present. Seminal vesicles normal. Bladder: The bladder wall is mildly thickened and trabeculated suggesting chronic outlet obstruction. Bowel: Visualized portion of the rectum normal. Peritoneum: No free fluid in the pelvis. There are small bilateral hydroceles, right greater than left. Lymph nodes: No lymphadenopathy in the visualized portion of the pelvis. Vasculature: Iliac vessels patent. Abdominal wall: Normal. Osseous structures: Normal bone marrow signal intensity. IMPRESSION: 1. There is a 15 mm lesion in the left peripheral zone at the mid gland. PI-RADS: 5. Clinically significant cancer is highly likely to present. This lesion has been segmented for targeted biopsy. 2. This lesion may involve the neurovascular bundle and there may be trace extracapsular extension. 3. Benign prostatic hyperplasia. Electronically signed by: Richard Clay M.D. 05/17/2017 9:23 AM Dictated Date/Time: 05/17/2017 8:46 AM
== END | disposition home or self-care (01) ==
LOC: C.MRIBC 06:41
PROVIDERS: ATTEND Urology
DX: R97.20 Elevated prostate specific antigen [PSA] (principal); N40.0 Benign prostatic hyperplasia without lower urinary tract symptoms

== ENCOUNTER → 2017-06-18 | Outpatient (CLI) | payer BC ==
[~2017-06-18] MED LIST changes: -GADAVIST IV PRN
== END | disposition home or self-care (01) ==
LOC: C.LABPVFM 09:53
PROVIDERS: ATTEND Family Medicine
DX: R39.9 Unspecified symptoms and signs involving the genitourinary system (principal)

== ENCOUNTER → 2017-09-04 | Outpatient (CLI) | payer BC ==
[~2017-09-04] MED LIST changes: +QUIN1TAB49 PO; -QUIN40TA18 PO
--- NOTE | 2017-09-04 15:36 | DIAGNOSTIC IMAGING REPORT ---
BONE SCAN WHOLE BODY CLINICAL HISTORY: C61 Prostate [id number] COMPARISON STUDY: Conventional radiographic evaluation the right shoulder chest and orbits performed in 2017. MRI the prostate performed May 2017 FINDINGS: The patient was injected with 26.6 mCi of technetium 99m MDP. Three-hour delayed whole body images were acquired. There are foci of increased activity within the shoulders wrists and knees and feet. The distribution favors a degenerative/arthritic etiology. There is unexplained intense focus of increased activity involving the right superior lateral orbit. In retrospect there is a subtle sclerotic lesion at this level on prior radiographs, dating back to 2014. There is a focus of unexplained increased activity at the L4-5 level to the right of midline posteriorly. Plain film correlation is advocated. There are nonspecific foci of increased activity within the lower cervical spine, likely degenerative. IMPRESSION: 1. Extensive multifocal joint activity, likely arthritic 2. Unexplained focus of increased activity within the lumbar spine the L4-5 level. Plain film correlation is recommended to help differentiate arthritic from neoplastic etiology 3. Intense focus of increased activity involving the right superior lateral orbit. A CT scan is recommended in follow-up for further delineation. Electronically signed by: Ang Worthy M.D. 09/04/2017 3:34 PM Dictated Date/Time: 09/04/2017 3:27 PM
== END | disposition home or self-care (01) ==
LOC: C.NUCL 11:35
PROVIDERS: ATTEND Urology
DX: C61 Malignant neoplasm of prostate (principal)

== ENCOUNTER → 2017-09-13 | Outpatient (CLI) | payer BC ==
--- NOTE | 2017-09-13 14:08 | DIAGNOSTIC IMAGING REPORT ---
L-SPINE MIN 4 VIEWS ROUTINE HISTORY: 71 years-old Male C61 Prostate cancer follow-up study in a patient with history of prostate cancer. Focus of increased activity of the lumbar spine within the region of L4-L5 on the right described on comparison. COMPARISON: Bone scan 09/04/2017 TECHNIQUE: 5 views of the lumbar spine FINDINGS: Convex left curvature of the mid lumbar spine. No acute fracture or subluxation. Severe intervertebral disc space narrowing on the right at L3-L4 and L4-L5 with marginal spurring likely correlates with area of increased tracer activity described on comparison bone scan. Severe facet arthropathy is also noted at L4-L5 and L5-S1. Moderate intervertebral disc space narrowing at L5-S1. No definite suspicious bone lesions are identified. No spondylolysis or spondylolisthesis. Cholecystectomy clips noted. Densities projecting about the right kidney may reflect stool contents or renal calculi. Phleboliths noted about the pelvis. IMPRESSION: 1. Levoscoliosis of the lumbar spine with severe intervertebral disc space narrowing and spondylitic spurring at L3-L4 and L4-L5 likely correlates with the area of increased uptake described on comparison bone scan without suspicious bone lesion identified. 2. No acute fracture or subluxation. The above report was generated using voice recognition software. It may contain grammatical, syntax or spelling errors. Electronically signed by: Miguel Angel Bush M.D. 09/13/2017 2:07 PM Dictated Date/Time: 09/13/2017 2:03 PM
== END | disposition home or self-care (01) ==
LOC: C.RAD 13:16
PROVIDERS: ATTEND Urology
DX: C61 Malignant neoplasm of prostate (principal)

== ENCOUNTER → 2017-10-07 | Outpatient (CLI) | payer BC ==
--- NOTE | 2017-10-07 09:50 | DIAGNOSTIC IMAGING REPORT ---
CHEST 2 VIEWS ROUTINE CLINICAL HISTORY: PAT preoperative evaluation COMPARISON STUDY: 08/07/2016 FINDINGS: Mild stable cardiomegaly. Chronic pleural reactive change left lung base. Lungs otherwise appear clear. Interval right shoulder arthroplasty. IMPRESSION: Chronic change. No acute process. The above report was generated using voice recognition software. It may contain grammatical, syntax or spelling errors. Electronically signed by: Darnell Troy M.D. 10/07/2017 9:49 AM Dictated Date/Time: 10/07/2017 9:48 AM
[2017-10-07 10:00] LABS: BASO % 0.3 %; BASO ABS # 0.03 K/uL (0-0.2); EOS % 1.1 %; HEMATOCRIT 43.4 % (42-52); IG# 0.02 K/uL (0.00-0.02); LYMPH % 30.8 %; LYMPH ABS # 2.79 K/uL (1.2-3.4); MEAN CELL VOLUME 89.5 fL (80-100); MEAN CORPUSCULAR HEMOGLOBIN 30.9 pg (25-34); MEAN CORPUSCULAR HGB CONC 34.6 g/dl (32-36); MEAN PLATELET VOLUME 9.5 fL (7.4-10.4); MONO % 7.2 %; MONO ABS # 0.65 K/uL (0.11-0.59); NEUT % 60.4 %; NEUT ABS # 5.48 K/uL (1.4-6.5); PLATELET COUNT 228 K/uL (130-400); RED CELL DISTRIBUTION WIDTH CV 12.5 % (11.5-14.5); RED CELL DISTRIBUTION WIDTH SD 40.2 fL (36.4-46.3); WHITE BLOOD COUNT 9.07 K/uL (4.8-10.8)
[2017-10-07 10:08] LABS: BLOOD UREA NITROGEN 13 mg/dl (7-18); CALCIUM 8.5 mg/dl (8.5-10.1); CARBON DIOXIDE 25 mmol/L (21-32); CREATININE 0.93 mg/dl (0.60-1.40); GLUCOSE 104 mg/dl (70-99); POTASSIUM 3.6 mmol/L (3.5-5.1); SODIUM 139 mmol/L (136-145)
== END | disposition home or self-care (01) ==
LOC: C.CPL 08:36
PROVIDERS: ATTEND Urology
DX: Z01.810 Encounter for preprocedural cardiovascular examination (principal); Z01.818 Encounter for other preprocedural examination; Z01.812 Encounter for preprocedural laboratory examination

== ENCOUNTER 2018-10-06 08:36 | Inpatient (IN) ==
--- NOTE | 2018-09-19 16:35 | PAT Medication Instructions ---
Medication Instructions Date of Service September 19, 2018 Home Medications hydrochlorothiazide 50 mg PO QAM L.acidoph-B.long-L.plant-B.lac [Probiotic Acidophilus Beads] 1 cap PO QAM acetaminophen 1,000 mg PO Q6H PRN ascorbic acid (vitamin C) 500 mg PO QAM cholecalciferol (vitamin D3) Vitamin D3 2,000 unit PO QDD docusate sodium Stool Softener 100 mg PO QAM docusate sodium Stool Softener 200 mg PO HS psyllium husk [Metamucil] 1 tbsp PO QAM quinapril 80 mg PO QPM vitamin E 400 unit PO QAM STOP taking 2 weeks before surgery (or as soon as possible if surgery is within 2 weeks) vitamin E 400 unit PO QAM DO NOT take the morning of surgery hydrochlorothiazide 50 mg PO QAM L.acidoph-B.long-L.plant-B.lac [Probiotic Acidophilus Beads] 1 cap PO QAM ascorbic acid (vitamin C) 500 mg PO QAM docusate sodium Stool Softener 100 mg PO QAM psyllium husk [Metamucil] 1 tbsp PO QAM Take morning of surgery With a small sip of water, OTHERWISE NOTHING TO EAT OR DRINK AFTER MIDNIGHT: acetaminophen 1,000 mg PO Q6H PRN (okay to take up to 4 hours prior to surgery if needed) Take evening before surgery acetaminophen 1,000 mg PO Q6H PRN (if needed) cholecalciferol (vitamin D3) Vitamin D3 2,000 unit PO QDD docusate sodium Stool Softener 200 mg PO HS quinapril 80 mg PO QPM Other Notes If you have any questions please call us at [phone] or [phone] or [phone] or [phone]
--- NOTE | 2018-09-23 09:07 | Anesthesiology Consultation ---
Date of Service September 23, 2018 Assessment & Plan (1) Encounter for pre-operative examination: Chart Review Chart Review: Acceptable Risk for Surgery and Patient seen in Pre Admission Testing Consults Requested none Teaching & Discussion Pre-Anesthesia Teaching/Discussion Notes: Instructed NPO after midnight before surgery, except medications with 15 cc of water. Medication instructions provided according to the PAT guidelines. History Surgery Operation Date: 10/06/18 12:30 Proposed Procedures p Laparoscopic Incisional Hernia Repair, Laparoscopic Ventral Hernia Repair, Possible Open - Oscar Gonzalez MD, FACS Height/Weight Height: 5 ft 10 in Weight: 98 kg Allergies Allergy/AdvReac Type Severity Reaction Status Date / Time Iodinated Contrast- Oral and Allergy Unknown SWELLING Verified 09/18/18 09:46 IV Dye Medications Home Medications Medication Instructions Recorded Confirmed Last Taken hydrochlorothiazide 50 mg PO QAM 07/22/18 09/18/18 07/22/18 L.acidoph-B.long-L.plant-B.lac 1 cap PO QAM 09/18/18 09/18/18 Unknown [Probiotic Acidophilus Beads] acetaminophen 1,000 mg PO Q6H PRN 09/18/18 09/18/18 Unknown ascorbic acid (vitamin C) [Vitamin 500 mg PO QAM 09/18/18 09/18/18 Unknown C] cholecalciferol (vitamin D3) 2,000 unit PO QDD 09/18/18 09/18/18 Unknown [Vitamin D3] docusate sodium [Stool Softener] 100 mg PO QAM 09/18/18 09/18/18 Unknown docusate sodium [Stool Softener] 200 mg PO HS 09/18/18 09/18/18 Unknown psyllium husk [Metamucil] 1 tbsp PO QAM 09/18/18 09/18/18 Unknown quinapril 80 mg PO QPM 09/18/18 09/18/18 Unknown vitamin E 400 unit PO QAM 09/18/18 09/18/18 Unknown Past Medical History Medical History Incisional hernia (Acute) Vitamin D deficiency (Acute) Arthritis (Acute) Chronic knee pain (Acute) Constipation (Acute) History of diverticulitis History of kidney stones History of prostate cancer Hx of irritable bowel syndrome Hx of migraines Hypertension Osteoarthritis Exercise / Class Metabolic Activity II 4-5 Yardwork/Stairs/Walk up hill (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 Able to climb FOS. Denies CP or SOB. ) Past Family History Family History Unknown Family history of diabetes mellitus Past Surgical History Surgical History H/O elbow surgery Right History of carpal tunnel release B/L History of cholecystectomy 09/14/14: MAC #3, ETT #8.0, HiLo Ora, Grade 2 View History of cystoscopy History of incision and drainage Right Hand History of repair of rotator cuff Right History of tooth extraction History of total shoulder replacement Right 09/14/16: MAC #3, Hi Lo Oral, HiLo Oral Hi/Lo Oral, Grade 2 View. Hx of prostatectomy 10/23/17: MAC #4, ETT #8, HiLo Oral, Grade 2 View Past Anesthesia History No Hx of Anesthesia Complications and No Family Hx of Anesthesia Complications History of PONV No Hx of PONV (Thinks maybe he was nauseated once, but unsure), No Hx of Motion Sickness and Other (Vertigo if lying under cars to work) Social History Smoking Status: Never smoker tobacco type: cigarettes and pipe Smoking cigarettes per day: smoked < 1 year as a teenager Do You Dip or Chew Tobacco: No (Quit in 1989) Hx Alcohol Use: No Hx Substance Use: No Review of Systems Patient denies chest pain, shortness of breath, dyspnea on exertion, reflux, cough, wheezing, palpitations. +Joint Pain (Knee, Shoulder) Physical Exam Vital Signs BP: 146/85 P: 69 R: 16 T: 98.1 SPO2: 97% on RA Constitutional + obese ENMT Mouth: + poor dentition Thyromental Distance: > or= 3.5 Finger Breadths (3.5) Mallampati Class: I Neck normal visual inspection and trachea midline; neck extension not limited Respiratory normal respiratory effort Auscultation: lungs clear to auscultation bilaterally Cardiovascular Rate/Rhythm: regular rate and regular rhythm Heart Sounds: no murmur Vessels: no carotid bruit Neurologic moves all extremities Psychiatric Orientation: alert and oriented x 3 Testing Laboratory Results 09/23/18 09:18 09/23/18 09:18 Electrocardiogram Date: 07/22/18 Findings: + SB @ (58) and + no change from (10/07/17) Left axis deviation RBBB
[2018-09-23 10:42] LABS: Basophils # (auto) 0.03 K/uL (0-0.2); Basophils % (auto) 0.4 %; Eosinophils # (auto) 0.14 K/uL (0-0.5); Eosinophils % (auto) 1.8 %; Hematocrit (blood only) 43.3 % (42-52); Hemoglobin 15.4 g/dL (14.0-18.0); Immature Granulocytes # (auto) 0.01 K/uL (0.00-0.02); Immature Granulocytes % (auto) 0.1 %; Lymphocytes # (auto) 2.34 K/uL (1.2-3.4); Lymphocytes % (auto) 30.2 %; Mean Corpuscular Hemoglobin 31.9 pg (25-34); Mean Corpuscular Hgb Conc 35.6 g/dL (32-36); Mean Corpuscular Volume 89.6 fL (80-100); Mean Platelet Volume 9.3 fL (7.4-10.4); Monocytes # (auto) 0.79 K/uL (0.11-0.59); Monocytes % (auto) 10.2 %; Neutrophils # (auto) 4.44 K/uL (1.4-6.5); Neutrophils % (auto) 57.3 %; Platelet Count 239 K/uL (130-400); RDW Coefficient of Variation 12.6 % (11.5-14.5); RDW Standard Deviation 40.9 fL (36.4-46.3); Red Blood Count 4.83 M/uL (4.7-6.1); White Blood Count 7.75 K/uL (4.8-10.8)
[2018-09-23 10:51] LABS: BUN Creatinine Ratio 22.3 (10-20); Calcium 9.1 mg/dl (8.5-10.1); Creatinine Clr Calc Pharmacy 80.8 ml/min; Est GFR (Non-African American) 77.7
[~2018-10-06 08:36] MED LIST changes: -ANSHCCR TOP; -ASCO10003 PO; +CEFAZOLIN 2000MG 2,000 MG/15 ML SYR IV SCH; -DUTACAP PO; -HYDR25TA5 PO; -KRIL1CAP18 PO; +LR 15ML/HR IV SCH; -MULT-190 PO; -PRLSR20 PO; -PSYL48.59 PO; -QUIN1TAB49 PO; -RXC5 PO; -VITAMIN D PO; -VITAMIN E PO
[2018-10-06] MEDS ORDERED: BUPIVACAINE 0.5 % 5 MG/1 ML MPF 30ML VIAL ONE (10:49)
[2018-10-06] MEDS ORDERED: CEFAZOLIN 250 MG/ML 1 GM VIAL ONE (10:49)
--- NOTE | 2018-10-06 10:49 | History & Physical Bridge Note ---
Date of Service October 06, 2018 History & Physical Bridge Note I have examined the patient, reviewed the History & Physical and in the interval since the performance of the History & Physical I have noted the following changes of clinical significance: no changes noted
[2018-10-06] MEDS ORDERED: DEXAMETHASONE SOD INJ 4 MG/ML VIAL ONE (10:51)
[2018-10-06] MEDS ORDERED: fentaNYL citrate 100 MCG/2 ML VIAL ONE (10:52)
[2018-10-06] MEDS ORDERED: ONDANSETRON INJ 2 MG/ML 2 ML VIAL ONE (10:52)
[2018-10-06] MEDS ORDERED: PROPOFOL IV EMULSION 10 MG/ML 20 ML VIAL IV ONE (10:52)
[2018-10-06] MEDS ORDERED: LIDOCAINE HCL 2% 2 ML VIAL/AMP(20MG/ML) INFIL ONE (10:52)
[2018-10-06] MEDS ORDERED: NEOSTIGMINE METHYLSULFATE 5 MG/5 ML SYR ONE (10:52)
[2018-10-06] MEDS ORDERED: ROCURONIUM BROMIDE 10 MG/ML 5 ML VIAL ONE (10:52)
[2018-10-06] MEDS ORDERED: MIDAZOLAM HCL 1 MG/ML 2ML VIAL ONE (10:52)
[2018-10-06] MEDS ORDERED: GLYCOPYRROLATE 0.2 MG/ML VIAL ONE (10:52)
[2018-10-06] MEDS ORDERED: LABETALOL HCL IV 5 MG/ML 20ML IV PRN (11:21)
[2018-10-06] MEDS ORDERED: ATROPINE SULFATE 0.1 MG/ML 10ML SYR IV PRN (11:21)
[2018-10-06] MEDS ORDERED: ONDANSETRON INJ 2 MG/ML 2 ML VIAL IV PRN ×2 (11:21→14:20)
--- NOTE | 2018-10-06 12:16 | Operative Report ---
Post Operative Report Pre & Post Diagnosis Operation Date: 10/06/18 10:10 Pre-Op Diagnosis: Incisional Hernia, Ventral Hernia Post-Op Diagnosis: Incisional Hernia, Ventral Hernia Procedure Operation Date: 10/06/18 10:10 Actual Procedures p Laparoscopic Incisional Hernia Repair with mesh, Open Ventral Hernia Repair - Oscar Gonzalez MD, FACS Surgeon Oscar Gonzalez MD, FACS Manager Corporate Responsibility Ricci Bhatt Estimated Blood Loss 10 Findings Consistent with Post-Op Diagnosis Specimens none Description of Procedure see dictation I attest to the content of the Intraoperative Record and any orders documented therein. Any exceptions are noted below.
[2018-10-06] MEDS ORDERED: ACETAMINOPHEN 1,000 MG/100 ML VIAL IV ONE (12:22)
[2018-10-06] MEDS ORDERED: ACETAMINOPHEN 1000 MG/100 ML IV IV ONE (12:41)
[2018-10-06] MEDS ORDERED: HYDROmorphone INJ 1 MG/ML SYRINGE ONE (12:43)
[2018-10-06] MEDS: HYDROmorphone INJ 1 MG/ML SYRINGE IV PRN ×5 (12:44→13:14)
--- NOTE | 2018-10-06 13:34 | Operative Report ---
DATE OF OPERATION: 10/06/2018 NAME OF OPERATION: Laparoscopic incisional hernia repair with a 15 cm Surgimesh and open ventral hernia repair. PREOPERATIVE DIAGNOSIS: Incisional hernia and ventral hernia. POSTOPERATIVE DIAGNOSIS: Incisional hernia and ventral hernia. STAFF SURGEON: Oscar Gonzalez MD BANQUET LEAD: Wiley Bhatt PA-C and Giana Burns. ANESTHESIA: General. DESCRIPTION OF PROCEDURE: The patient was brought in the operating room and placed on the operating table in supine position. His abdomen was prepped and draped in usual fashion. My assistants helped with prepping, draping, repair of the hernias and closure of the wound. Initially, incision was made in the left upper quadrant using 0.5% plain Marcaine to anesthetize all incisions. Dissection was carried down to the fascia, placing 0 Vicryl sutures and then placing a Veress needle producing pneumoperitoneum. An 11 mm port placed at this level and then under visualization, four 5 mm ports were placed, 2 left and 2 right lateral. The patient's hernia spontaneously reduced. He did have some fatty tissue cephalad and caudad, this was taken down sharply. We obtained a 15 cm piece of Surgimesh placed it into the abdomen. The polypropylene was toward the fascia, the silicone was toward the bowel. It was brought up through stab incision in the hernia sac using the suture on the mesh. It was then secured in 2 layers, 1 outer and 1 inner layer with absorbable tacks. The left side of the mesh was secured using a #1 Ethibond suture through a stab incision to the left of the midline. At this point, the pneumoperitoneum was reduced. We made a transverse incision approximately 7 cm above the other defect in the skin using 0.5% plain Marcaine to anesthetize the tissue. We dissected down identifying the hernia sac, which was approximately 3 cm in diameter. Defect was approximately 1.5 cm in diameter. The sac was reduced. The defect closed using interrupted #1 Ethibond suture. Subcutaneous tissue was reapproximated using 2-0 plain suture. The left upper quadrant fascia reapproximated using 0 PDS suture. Skin reapproximated all incisions using 5-0 Prolene suture. Dressings applied and patient transferred to recovery room in stable condition. I attest to the content of the Intraoperative Record and any orders documented therein. Any exception s are noted below.
--- NOTE | 2018-10-06 14:02 | Anesthesiology Progress Note ---
Date of Service October 06, 2018 Anesthesia Post Procedure Vital Signs Vital Signs: Temp Pulse Pulse Resp BP BP Pulse Ox 10/06/18 13:50 36.3 C L 10/06/18 13:45 48 L 18 152/84 H 92 10/06/18 13:35 52 L 15 155/91 H 96 10/06/18 13:25 57 L 19 151/90 H 95 10/06/18 13:15 52 L 16 141/85 H 95 10/06/18 13:05 56 L 20 152/86 H 96 10/06/18 12:55 58 L 17 149/89 H 95 10/06/18 12:45 68 16 140/85 99 10/06/18 12:37 36.6 C 66 17 158/89 H 100 10/06/18 09:12 37.1 C 68 20 137/96 94 Pain Intensity Right Shoulder: Pain Intensity: 2 Medial Abdomen: Pain Intensity: 6 Transfer of Care Handoff Completed per policy Notes Mental Status: alert / awake / arousable Patient Amnestic to Procedure: Yes Nausea / Vomiting: adequately controlled Pain: adequately controlled Airway Patency, RR, SpO2: stable & adequate BP & HR: stable & adequate Hydration State: stable & adequate Anesthetic Complications: no major complications apparent
[2018-10-06] MEDS ORDERED: HYDROmorphone INJ 1 MG/ML SYRINGE IV PRN (14:20)
[2018-10-06] MEDS ORDERED: PROMETHAZINE HCL 12.5 MG in SODIUM CHLORIDE 0.9% 50 ML IV PRN (14:20)
[2018-10-06] MEDS ORDERED: HYDROmorphone INJ 0.5 MG/0.5 ML SYR IV PRN (14:20)
[2018-10-06] MEDS ORDERED: PROMETHAZINE HCL 25 MG in SODIUM CHLORIDE 0.9% 50 ML IV PRN (14:20)
[2018-10-06] MEDS ORDERED: HYDROCODONE/ACETAMOPHEN 5/325MG TAB PO PRN ×2 (14:20)
[2018-10-06 15:16] LABS: INR 1.1 (0.9-1.1); Prothrombin Time 10.9 Seconds (9.0-12.0)
[2018-10-06] MEDS: CEFAZOLIN 1000MG 1,000 MG/7.5 ML SYR IV SCH (18:09)
[2018-10-06] MEDS: SODIUM CHLORIDE 0.9% 1000ML 1,000 ML IV SCH (18:09)
--- NOTE | 2018-10-06 18:36 | Consultation ---
Date of Consultation October 06, 2018 Assessment & Plan (1) Incisional hernia: s/p laparoscopic repair of such today along with open repair of a ventral hernia. defer management to surgery. (2) Hypertension: would hold SANTINO for now. ok to continue HCTZ. bmp/mag in am. follow BPs. (3) Benign prostatic hypertrophy: no symptoms at this time. follow for urinary retention, etc. History of Present Illness Requesting Physician: post-op medical management Reason for Consultation: post-o p medical management Attending Physician: Oscar Gonzalez MD History of Present Illness 72yo male with history of HTN who presented today for elective incisional hernia repair and ventral hernia repair by Dr Gonzalez. I saw the patient post-op on the surgical floor. He complained of abdominal pain only and mild nausea but was able to eat dinner. He denied any chest pain, dyspnea, headache, vomiting, numbness or weakness of any limb. Records indicate he was recently treated for acute sinusitis with a course of oral prednisone and antibiotics. He had no sinus complaints today. Allergies Allergy/AdvReac Type Severity Reaction Status Date / Time Iodinated Contrast- Oral and Allergy Unknown SWELLING Verified 10/06/18 09:04 IV Dye Home Medications Home Medications Medication Instructions Recorded Confirmed Type hydrochlorothiazide 50 mg PO QAM 07/22/18 10/06/18 History L.acidoph-B.marcelina-L.plant-B.lac 1 cap PO QAM 09/18/18 10/06/18 History [Probiotic Acidophilus Beads] acetaminophen 1,000 mg PO Q6H PRN 09/18/18 10/06/18 History ascorbic acid (vitamin C) [Vitamin 500 mg PO QAM 09/18/18 10/06/18 History C] cholecalciferol (vitamin D3) 2,000 unit PO QDD 09/18/18 10/06/18 History [Vitamin D3] docusate sodium [Stool Softener] 100 mg PO QAM 09/18/18 10/06/18 History docusate sodium [Stool Softener] 200 mg PO HS 09/18/18 10/06/18 History psyllium husk [Metamucil] 1 tbsp PO QAM 09/18/18 10/06/18 History quinapril 80 mg PO QPM 09/18/18 10/06/18 History vitamin E 400 unit PO QAM 09/18/18 10/06/18 History amoxicillin 875 mg-potassium 1 tab PO Q12H #20 tab 09/26/18 10/06/18 Rx clavulanate 125 mg tablet Patient History Medical History Incisional hernia (Acute) Vitamin D deficiency (Acute) History of diverticulitis History of kidney stones History of prostate cancer Hx of migraines Hypertension Arthritis (Acute) Chronic knee pain (Acute) Constipation (Acute) Hx of irritable bowel syndrome Osteoarthritis Surgical History History of incisional hernia repair (10/06/18) Laparoscopic Incisional Hernia Repair with mesh, Open Ventral Hernia Repair Dr. Gonzalez 10/06/18 Hx of prostatectomy 10/23/17: MAC #4, ETT #8, HiLo Oral, Grade 2 View H/O elbow surgery Right History of carpal tunnel release B/L History of cholecystectomy 09/14/14: MAC #3, ETT #8.0, HiLo Ora, Grade 2 View History of cystoscopy History of incision and drainage Right Hand History of repair of rotator cuff Right History of tooth extraction History of total shoulder replacement Right 09/14/16: MAC #3, Hi Lo Oral, HiLo Oral Hi/Lo Oral, Grade 2 View. Family History Father , age 89 "old age" Dementia Mother Cancer Social History Preferred Language: Egyptian Communication Ability: Effective Visual Impairment: No Limitations Beliefs That Will Affect Care: None marital status: marital status details: 3 children Current Living Situation: Spouse current occupation: [employer] Feels Safe at Home: Yes Smoking Status: Never smoker Tobacco Type: cigarettes and pipe ; Cigarettes Per Day: smoked < 1 year ; Do You Dip or Chew Tobacco: No (Quit in 1989) ; Smoking End Date: 1989 ; Second Hand Exposure: No ; Hx Alcohol Use: No Hx Substance Use: No Review of Systems Constitutional: no fever, no chills and no fatigue Ear, Nose, Mouth, Throat: no sore throat and no dysphagia Respiratory: no cough and no dyspnea Cardiovascular: no chest pain Gastrointestinal: + abdominal pain and + nausea; no vomiting Genitourinary: no dysuria Musculoskeletal: no joint pain Neurologic: no localized weakness and no loss of sensation Endocrine: denies diabetes Physical Exam Constitutional: well developed and well nourished; no acute distress and no altered mental status ENMT: external ear and nose normal, oropharynx normal Respiratory: normal respiratory effort, lungs clear to auscultation Cardiovascular: Rate/Rhythm: regular rate and regular rhythm Heart Sounds: normal S1 and normal S2; no murmur Vessels: posterior tibial pulses present and dorsalis pedis pulses present; no JVD Extremities: no edema Gastrointestinal (Abdomen): abdominal binder in place; mild distension; BS+; mild tenderness Skin: no rashes, warm and dry Neurologic: moves all extremities; no focal motor deficits Psychiatric: A+Ox3, euthymic affect Lymphatic: no cervical lymphadenopathy Results & Data Vital Signs (Past 12 Hours) Vital Signs Temp Pulse Pulse Resp BP BP Pulse Ox 10/06/18 17:08 36.9 C 71 18 150/81 H 91 10/06/18 16:05 36.7 C 68 18 156/84 H 94 10/06/18 15:10 36.6 C 54 L 20 144/80 H 93 10/06/18 14:40 54 L 16 148/90 H 95 10/06/18 14:10 36.6 C 55 L 16 153/85 H 95 10/06/18 14:05 62 15 151/82 H 95 10/06/18 13:50 36.3 C L 10/06/18 13:45 48 L 18 152/84 H 92 10/06/18 13:35 52 L 15 155/91 H 96 10/06/18 13:25 57 L 19 151/90 H 95 10/06/18 13:15 52 L 16 141/85 H 95 10/06/18 13:05 56 L 20 152/86 H 96 10/06/18 12:55 58 L 17 149/89 H 95 10/06/18 12:45 68 16 140/85 99 10/06/18 12:37 36.6 C 66 17 158/89 H 100 10/06/18 09:12 37.1 C 68 20 137/96 94 Laboratory Results Laboratory Results - last 24 hr 10/06/18 14:55 PT 10.9 INR 1.1 PG Care Time/CCT Total # of Minutes Spent Total Time Spent with Patient: Total time spent is greater than 50% in coordination of care (as documented) at patient's floor/unit and/or counseling patient: (1) Hypertension Hypertension type: essential hypertension Qualified Code(s): I10 - Essential (primary) hypertension (2) Benign prostatic hypertrophy Lower urinary tract symptom presence: symptoms absent Qualified Code(s): N40.0 - Benign prostatic hyperplasia without lower urinary tract symptoms (3) Incisional hernia Obstruction and gangrene presence: without obstruction or gangrene Qualified Code(s): K43.2 - Incisional hernia without obstruction or gangrene; K43.91 - Incisional hernia, without obstruction or gangrene
[2018-10-06] MEDS ORDERED: ACETAMINOPHEN 325 MG TAB ONE (19:29)
[2018-10-06] MEDS: DOCUSATE SODIUM/SENNA 50/8.6MG TAB PO SCH (21:06)
[2018-10-06] MEDS ORDERED: ALUMINUM/MAGNESIUM SUSP 30 ML UDC PO STA (23:00)
[2018-10-07] MEDS: CEFAZOLIN 1000MG 1,000 MG/7.5 ML SYR IV SCH ×3 (01:28→17:23)
[2018-10-07] MEDS: ACETAMINOPHEN 325 MG TAB PO PRN ×4 (05:43→21:30)
[2018-10-07 06:11] LABS: Basophils # (auto) 0.02 K/uL (0-0.2); Basophils % (auto) 0.1 %; Eosinophils % (auto) 0.7 %; Hematocrit (blood only) 39.9 % (42-52); Hemoglobin 14.4 g/dL (14.0-18.0); Immature Granulocytes # (auto) 0.06 K/uL (0.00-0.02); Immature Granulocytes % (auto) 0.4 %; Lymphocytes # (auto) 2.94 K/uL (1.2-3.4); Lymphocytes % (auto) 19.6 %; Mean Corpuscular Hgb Conc 36.1 g/dL (32-36); Mean Corpuscular Volume 88.7 fL (80-100); Mean Platelet Volume 8.9 fL (7.4-10.4); Monocytes # (auto) 1.06 K/uL (0.11-0.59); Monocytes % (auto) 7.1 %; Neutrophils # (auto) 10.83 K/uL (1.4-6.5); Neutrophils % (auto) 72.1 %; Platelet Count 213 K/uL (130-400); RDW Coefficient of Variation 12.7 % (11.5-14.5); RDW Standard Deviation 40.7 fL (36.4-46.3); White Blood Count 15.01 K/uL (4.8-10.8)
--- NOTE | 2018-10-07 06:23 | Surgery Progress Note ---
Date of Service October 07, 2018 Assessment & Plan (1) History of incisional hernia repair: some pain but starting to ambulate voiding well advance diet, monitor GI function, cont IV atbx possible d/c 1-2 days Results & Data Vital Signs (Past 12 Hours) Vital Signs Temp Pulse Pulse Resp BP Pulse Ox 10/07/18 03:54 36.7 C 58 L 18 120/74 92 10/06/18 23:27 36.6 C 72 20 135/77 97 10/06/18 19:07 36.8 C 95 H 18 138/84 94 PG Care Time/CCT Total # of Minutes Spent Total Time Spent with Patient: Total time spent is greater than 50% in coordination of care (as documented) at patient's floor/unit and/or counseling patient:
[2018-10-07 07:00] LABS: Albumin Level 3.4 gm/dl (3.4-5.0); BUN Creatinine Ratio 22.6 (10-20); Calcium 8.6 mg/dl (8.5-10.1); Creatinine Clr Calc Pharmacy 95.4 ml/min; Est GFR (African American) 102.4; Est GFR (Non-African American) 88.3; Magnesium 1.8 mg/dl (1.8-2.4); Potassium 3.7 mmol/L (3.5-5.1)
[2018-10-07 07:01] LABS: Albumin Globulin Ratio 1.1 (0.9-2); Bilirubin,Total 1.2 mg/dl (0.2-1); Phosphorus 2.4 mg/dl (2.5-4.9); Total Protein 6.4 gm/dl (6.4-8.2)
[2018-10-07] MEDS ORDERED: SODIUM PHOSPHATE 3 MMOL/1 ML INFUSION IV STA (08:23)
--- NOTE | 2018-10-07 08:35 | Anesthesiology Progress Note ---
Date of Service October 07, 2018 Anesthesia Post Procedure Vital Signs Vital Signs: Temp Pulse Pulse Resp BP BP Pulse Ox 10/07/18 07:15 36.6 C 57 L 17 129/81 93 10/07/18 03:54 36.7 C 58 L 18 120/74 92 10/06/18 23:27 36.6 C 72 20 135/77 97 10/06/18 19:07 36.8 C 95 H 18 138/84 94 10/06/18 17:08 36.9 C 71 18 150/81 H 91 10/06/18 16:05 36.7 C 68 18 156/84 H 94 10/06/18 15:10 36.6 C 54 L 20 144/80 H 93 10/06/18 14:40 54 L 16 148/90 H 95 10/06/18 14:10 36.6 C 55 L 16 153/85 H 95 10/06/18 14:05 62 15 151/82 H 95 10/06/18 13:50 36.3 C L 10/06/18 13:45 48 L 18 152/84 H 92 10/06/18 13:35 52 L 15 155/91 H 96 10/06/18 13:25 57 L 19 151/90 H 95 10/06/18 13:15 52 L 16 141/85 H 95 10/06/18 13:05 56 L 20 152/86 H 96 10/06/18 12:55 58 L 17 149/89 H 95 10/06/18 12:45 68 16 140/85 99 10/06/18 12:37 36.6 C 66 17 158/89 H 100 10/06/18 09:12 37.1 C 68 20 137/96 94 Pain Intensity Right Shoulder: Pain Intensity: 2 Medial Abdomen: Pain Intensity: 3 Notes Mental Status: alert / awake / arousable and participated in evaluation Patient Amnestic to Procedure: Yes Nausea / Vomiting: adequately controlled Pain: adequately controlled Airway Patency, RR, SpO2: stable & adequate BP & HR: stable & adequate Hydration State: stable & adequate Anesthetic Complications: no major complications apparent and Pt Satisfied with anesthetic care
[2018-10-07] MEDS ORDERED: SODIUM PHOSPHATE 15 MMOL in SODIUM CHLORIDE 0.9% 250 ML IV ONE (09:00)
[2018-10-07] MEDS: PSYLLIUM 58.6% POWDER PACKET PO SCH (09:26)
[2018-10-07] MEDS: hydroCHLOROthiazide 25 MG TAB PO SCH (09:26)
[2018-10-07] MEDS: MAGNESIUM HYDROXIDE SUSP 30 ML UDC PO SCH ×2 (09:26→20:37)
[2018-10-07] MEDS: DOCUSATE SODIUM/SENNA 50/8.6MG TAB PO SCH ×2 (09:27→20:35)
[2018-10-07] MEDS: HEPARIN SOD 5,000 UNIT/0.5 ML VIAL SQ SCH ×2 (09:28→20:35)
[2018-10-07] MEDS: SODIUM CHLORIDE 0.9% 1000ML 1,000 ML IV SCH ×2 (11:02→13:21)
[2018-10-07] MEDS ORDERED: BISACODYL 5 MG TABEC PO ONE (16:58)
[2018-10-08] MEDS: ACETAMINOPHEN 325 MG TAB PO PRN ×5 (00:23→18:25)
[2018-10-08] MEDS: CEFAZOLIN 1000MG 1,000 MG/7.5 ML SYR IV SCH ×3 (01:08→18:25)
[2018-10-08] MEDS: CALCIUM CARBONATE 500 MG CHEWABLE TAB PO PRN ×2 (01:08→11:27)
--- NOTE | 2018-10-08 05:42 | Hospitalist Progress Note ---
Date of Service October 07, 2018 Assessment & Plan (1) Incisional hernia: POD #1 - s/p laparoscopic repair of incisional hernia along with open repair of a ventral hernia. defer management to surgery. patient without flatus or stool since surgery. if this persists this would be concerning for early ileus. continue ambulating. continue bowel regimen. time. BMP noted to be normal today. (2) Hypertension: agree w/ resumption of SANTINO; creatinine stable on labs today. continue HCTZ. adjust meds as needed. (3) Benign prostatic hypertrophy: no symptoms at this time. voiding w/o difficulty. (4) DVT prophylaxis: heparin SC Subjective pt c/o abd fullness, bloating and inability to pass flatus or stool since the surgery. it is quite uncomfortable and it is taking away his appetite. he is ambulating well. he has had similar bowel issues post-surgery in the past. Review of Systems Respiratory: no dyspnea Cardiovascular: no chest pain Gastrointestinal: + abdominal pain and + nausea; no vomiting Physical Exam Constitutional: WD/WN, vitals as above no acute distress ENMT: external ear and nose normal, oropharynx normal Respiratory: normal respiratory effort, lungs clear to auscultation Cardiovascular: RRR, no murmur, no edema Heart Sounds: normal S1 and normal S2 Vessels: posterior tibial pulses present and dorsalis pedis pulses present; no JVD Gastrointestinal (Abdomen): Inspection/Auscultation: + abdomen distended; + abnormal bowel sounds (modestly decreased) Percussion/Palpation: + abdomen tender (mild); no hepatosplenomegaly abdominal binder in place Psychiatric: A+Ox3, euthymic affect Results & Data Vital Signs (Past 12 Hours) Vital Signs Temp Pulse Resp BP Pulse Ox 10/07/18 23:22 37.0 C 68 16 169/100 H 93 Laboratory Results Laboratory Results - last 24 hr 10/07/18 10/07/18 10/07/18 05:58 05:58 05:58 WBC 15.01 H RBC 4.50 L Hgb 14.4 Hct 39.9 L MCV 88.7 MCH 32.0 MCHC 36.1 H RDW Std Deviation 40.7 RDW Coeff of Storm 12.7 Plt Count 213 MPV 8.9 Immature Gran % (Auto) 0.4 Neut % (Auto) 72.1 Lymph % (Auto) 19.6 [place] % (Auto) 7.1 Eos % (Auto) 0.7 Baso % (Auto) 0.1 Immature Gran # (Auto) 0.06 H Neut # (Auto) 10.83 H Lymph # (Auto) 2.94 [place] # (Auto) 1.06 H Eos # (Auto) 0.10 Baso # (Auto) 0.02 Sodium 140 Potassium 3.7 Chloride 106 Carbon Dioxide 26 Anion Gap 8.0 BUN 18 Creatinine 0.82 Est Cr Clr Drug Dosing 95.4 Est GFR ( Amer) 102.4 Est GFR (Non-Af Amer) 88.3 BUN/Creatinine Ratio 22.6 H Glucose 88 Calcium 8.6 Phosphorus 2.4 L Magnesium 1.8 Total Bilirubin 1.2 H AST 19 ALT 29 Alkaline Phosphatase 67 Total Protein 6.4 Albumin 3.4 Globulin 3.0 Albumin/Globulin Ratio 1.1 Hepatitis C Ab Screen Neg PG Care Time/CCT Total # of Minutes Spent Total Time Spent with Patient: Total time spent is greater than 50% in co ordination of care (as documented) at patient's floor/unit and/or counseling patient: (1) Incisional hernia Obstruction and gangrene presence: without obstruction or gangrene Qualified Code(s): K43.2 - Incisional hernia without obstruction or gangrene; K43.91 - Incisional hernia, without obstruction or gangrene (2) Hypertension Hypertension type: essential hypertension Qualified Code(s): I10 - Essential (primary) hypertension (3) Benign prostatic hypertrophy Lower urinary tract symptom presence: symptoms absent Qualified Code(s): N40.0 - Benign prostatic hyperplasia without lower urinary tract symptoms
--- NOTE | 2018-10-08 07:29 | Surgery Progress Note ---
Date of Service October 08, 2018 Assessment & Plan (1) History of incisional hernia repair: overall stable- feels need to have bm- does not seem to req narcotics has active bowel sounds- on Sen S and MOM cont walking- should progress consider magcitrate later today if no results possible d/c tomorrow Results & Data Vital Signs (Past 12 Hours) Vital Signs Temp Pulse Resp BP Pulse Ox 10/07/18 23:22 37.0 C 68 16 169/100 H 93 PG Care Time/CCT Total # of Minutes Spent Total Time Spent with Patient: Total time spent is greater than 50% in coordination of care (as documented) at patient's floor/unit and/or counseling patient:
[2018-10-08] MEDS: SODIUM CHLORIDE 0.9% 1000ML 1,000 ML IV SCH (08:33)
[2018-10-08] MEDS: HEPARIN SOD 5,000 UNIT/0.5 ML VIAL SQ SCH ×2 (08:38→21:16)
[2018-10-08] MEDS: PSYLLIUM 58.6% POWDER PACKET PO SCH (08:39)
[2018-10-08] MEDS: DOCUSATE SODIUM/SENNA 50/8.6MG TAB PO SCH ×2 (08:40→21:15)
[2018-10-08] MEDS: hydroCHLOROthiazide 25 MG TAB PO SCH (08:40)
[2018-10-08] MEDS: MAGNESIUM HYDROXIDE SUSP 30 ML UDC PO SCH ×2 (08:42→21:15)
[2018-10-08] MEDS ORDERED: ENALAPRIL MALEATE 10 MG TAB PO SCH ×2 (09:00→21:00)
--- NOTE | 2018-10-08 21:02 | Hospitalist Progress Note ---
Date of Service October 08, 2018 Assessment & Plan (1) Incisional hernia: POD #2 - s/p laparoscopic repair of incisional hernia along with open repair of a ventral hernia. defer management to surgery. (2) Hypertension: cont SANTINO. continue HCTZ. BPs running high - perhaps related to abdominal pain, stress, etc. follow for now but adjust meds and/or add meds if needed for improved control. (3) Benign prostatic hypertrophy: no symptoms at this time. voiding w/o difficulty. (4) Constipation: finally passing flatus. eating. no nausea/emesis. cont bowel regimen. ambulate. (5) DVT prophylaxis: heparin SC Subjective started passing flatus earlier today. however still remains bloated/distended. appetite improve. no dyspnea. no chest pain. ambulating. Review of Systems Constitutional: no fever Respiratory: no cough Gastrointestinal: no nausea and no vomiting Physical Exam Constitutional: WD/WN, vitals as above well developed and well nourished; no acute distress and no altered mental status ENMT: external ear and nose normal, oropharynx normal Respiratory: normal respiratory effort, lungs clear to auscultation Cardiovascular: Rate/Rhythm: regular rate and regular rhythm Heart Sounds: normal S1 and normal S2; no murmur Vessels: posterior tibial pulses present and dorsalis pedis pulses present; no JVD Extremities: no edema Gastrointestinal (Abdomen): Inspection/Auscultation: + abdomen distended and normal bowel sounds Percussion/Palpation: abdomen nontender and no hepatosplenomegaly abdominal binder in place Skin: no rashes, warm and dry Neurologic: no focal motor deficits Psychiatric: A+Ox3, euthymic affect Results & Data Vital Signs (Past 12 Hours) Vital Signs Temp Pulse Resp BP Pulse Ox 10/08/18 17:32 165/85 H 10/08/18 15:18 37 C 79 18 161/99 H 96 PG Care Time/CCT Total # of Minutes Spent Total Time Spent with Patient: Total time spent is greater than 50% in coord ination of care (as documented) at patient's floor/unit and/or counseling patient: (1) Benign prostatic hypertrophy Lower urinary tract symptom presence: symptoms absent Qualified Code(s): N40.0 - Benign prostatic hyperplasia without lower urinary tract symptoms (2) Incisional hernia Obstruction and gangrene presence: without obstruction or gangrene Qualified Code(s): K43.2 - Incisional hernia without obstruction or gangrene; K43.91 - Incisional hernia, without obstruction or gangrene (3) Hypertension Hypertension type: essential hypertension Qualified Code(s): I10 - Essential (primary) hypertension (4) Constipation Constipation type: other constipation type Qualified Code(s): K59.09 - Other constipation
[2018-10-09] MEDS: ACETAMINOPHEN 325 MG TAB PO PRN ×2 (00:29→05:49)
[2018-10-09] MEDS: CEFAZOLIN 1000MG 1,000 MG/7.5 ML SYR IV SCH ×2 (02:44→09:23)
[2018-10-09] MEDS: SODIUM CHLORIDE 0.9% 1000ML 1,000 ML IV SCH (03:45)
--- NOTE | 2018-10-09 06:21 | Surgery Progress Note ---
Date of Service October 09, 2018 Assessment & Plan (1) History of incisional hernia repair: had mult bm- no narcotics taken mild distention - baseline- feels much better plan to d/c this am Results & Data Vital Signs (Past 12 Hours) Vital Signs Temp Pulse Resp BP Pulse Ox 10/09/18 00:15 36.6 C 81 16 141/88 H 92 PG Care Time/CCT Total # of Minutes Spent Total Time Spent with Patient: Total time spent is greater than 50% in coordination of care (as documented) at patient's floor/unit and/or counseling patient:
[2018-10-09] MEDS: HEPARIN SOD 5,000 UNIT/0.5 ML VIAL SQ SCH (08:44)
[2018-10-09] MEDS: MAGNESIUM HYDROXIDE SUSP 30 ML UDC PO SCH (08:45)
[2018-10-09] MEDS: PSYLLIUM 58.6% POWDER PACKET PO SCH (08:45)
[2018-10-09] MEDS: hydroCHLOROthiazide 25 MG TAB PO SCH (08:46)
[2018-10-09] MEDS: DOCUSATE SODIUM/SENNA 50/8.6MG TAB PO SCH (08:46)
[2018-10-09] MEDS ORDERED: PSYLLIUM 58.6% POWDER PACKET PO SCH (10:00)
--- NOTE | 2018-10-10 22:36 | Discharge Summary ---
PRINCIPAL DIAGNOSIS: Incisional hernia. PROCEDURE: The patient underwent laparoscopic incisional hernia repair. HISTORY OF PRESENT ILLNESS: The patient is a 72-year-old male who underwent robotic prostatectomy and developed an incisional hernia. HOSPITAL COURSE: He was brought into the hospital on 10/06/2018 where he underwent elective laparoscopic incisional hernia repair. Postoperatively, he progressed relatively well, but did have some evidence of ileus, which delayed his discharge, but he gradually regained his GI function and was felt stable for discharge on 10/09/2018, to be followed in the surgical clinic within 1-2 weeks.
--- NOTE | 2018-10-15 10:17 | Coding Query ---
CODING QUERY To promote full compliance with coding requirements relating to patient care, provider participation is requested in all cases of carpenter helper uncertainty. Please assist us with the question(s) below: Coding Question(s): Patient admitted for repair of ventral and incisional hernias. Postopertive with ileus which extended patient stay. Please check below the phrase that describes the postoperative ileus. Thanks for your help. NAWAF Borrero [facility] Physician's Response(s): The postoperative ileus is not a complication of the surgery- it may be expected after GI surgery. The postoperative ileus is a complication of the surgery. _x Cannot determine if the postoperative ileus is a complication of the surgery. Other/ Please document: Principal Diagnosis: "that condition established after study, to be chiefly responsible for occasioning the admission of the patient to the hospital for care." LARAD
== END 2018-10-09 10:20 | disposition home or self-care (01) | DRG 354 ==
LOC: ASU 08:36 → 3W 11:17 → SUATTDRO 11:17

== ENCOUNTER 2018-10-14 13:48 | Inpatient (IN) ==
[2018-10-14] MEDS ORDERED: HYDROmorphone INJ 1 MG/ML SYRINGE IV PRN (14:22)
[2018-10-14] MEDS ORDERED: PROMETHAZINE HCL 25 MG in SODIUM CHLORIDE 0.9% 50 ML IV PRN (14:22)
[2018-10-14] MEDS ORDERED: HYDROmorphone INJ 0.5 MG/0.5 ML SYR IV PRN (14:22)
[2018-10-14] MEDS ORDERED: ONDANSETRON INJ 2 MG/ML 2 ML VIAL IV PRN ×2 (14:22→16:20)
[2018-10-14] MEDS ORDERED: PROMETHAZINE HCL 12.5 MG in SODIUM CHLORIDE 0.9% 50 ML IV PRN (14:22)
[2018-10-14] MEDS ORDERED: SODIUM CHLORIDE 0.9% 1000ML 1,000 ML IV SCH (14:39)
--- NOTE | 2018-10-14 14:39 | History & Physical Report ---
Date of Service October 14, 2018 Assessment & Plan (1) Ileus: Patient is 8 days postop with nausea and vomiting.We will admit him to the hospital for IV fluids andLimited p.o. intake. We will obtain a CAT scan with no contrast as he is allergic to iodine. We will check his laboratories including phos and mag. Current plan is for bowel rest. We will asked the medical team to see the patient. Place him on telemetry Case he requires IV medications. He may need an NG tube if he persistently vomits History of Present Illness Primary Care Provider: Alyssa Perera MD Patient is a 72-year-old maleWho is being admitted to the hospital with suspected ileus He had a laparoscopic incisional hernia repair 8 days prior to this. Presented to the emergency room last night With some abdominal painSubsequent to that had some nausea and vomiting presenting back to the emergency room. His abdominal film last night did show mildly dilated small bowel Consistent with an ileus. His abdominal pain Significantly improved And I suspect he had an element Gastric distention. Allergies Allergy/AdvReac Type Severity Reaction Status Date / Time Iodinated Contrast- Oral and Allergy Unknown SWELLING Verified 10/13/18 22:47 IV Dye Home Medications Home Medications Medication Instructions Recorded Confirmed Type hydrochlorothiazide 50 mg PO QAM 07/22/18 10/13/18 History Metamucil 1 tbsp PO QAM 09/18/18 10/13/18 History Probiotic Acidophilus Beads 1 cap PO QAM 09/18/18 10/13/18 History acetaminophen 1,000 mg PO Q6H PRN 09/18/18 10/13/18 History ascorbic acid (vitamin C) [Vitamin 500 mg PO QAM 09/18/18 10/13/18 History C] cholecalciferol (vitamin D3) 2,000 unit PO QDD 09/18/18 10/13/18 History [Vitamin D3] docusate sodium [Stool Softener] 100 mg PO QAM 09/18/18 10/13/18 History docusate sodium [Stool Softener] 200 mg PO HS 09/18/18 10/13/18 History quinapril 80 mg PO QPM 09/18/18 10/13/18 History vitamin E 400 unit PO QAM 09/18/18 10/13/18 History amoxicillin 875 mg-potassium 1 tab PO Q12H #20 tab 09/26/18 10/13/18 Rx clavulanate 125 mg tablet amoxicillin-pot clavulanate 1 tab PO BID #10 tab 10/09/18 10/13/18 Rx [Augmentin] dicyclomine 10 mg PO Q6 PRN #20 cap 10/13/18 Rx Past Med/Surg History Social History Preferred Language: Croatian Communication Ability: Effective Visual Impairment: No Limitations Beliefs That Will Affect Care: None marital status: marital status details: 3 children Current Living Situation: Spouse current occupation: [employer] [facility] Feels Safe at Home: Yes Smoking Status: Never smoker Tobacco Type: cigarettes and pipe ; Cigarettes Per Day: smoked < 1 year ; Second Hand Exposure: No ; Hx Alcohol Use: No Hx Substance Use: No Review of Systems Review of Systems: All systems reviewed & are unremarkable except as noted in HPI & below Physical Exam Physical Exam: Patient is currently awake and alertDoes not appear to be significantly ill His abdomen is mildly distended He does have bowel sound Without significant tenderness Constitutional: well developed and well nourished; no acute distress Eyes: + anicteric sclerae Respiratory: normal respiratory effort; no respiratory distress Cardiovascular: Rate/Rhythm: regular rate Gastrointestinal (Abdomen): Percussion/Palpation: abdomen soft mild distention Musculoskeletal: Gait: normal gait Skin: no rashes, warm and dry Neurologic: awake Psychiatric: Orientation: alert Results & Data Vital Signs (Past 12 Hours) Vital Signs Temp Pulse Resp BP Pulse Ox 10/14/18 13:56 36.8 C 101 H 18 153/79 H 94 Code Status & VTE Plan VTE Prophylaxis Plan VTE Prophylaxis will be ordered: Yes PG Care Time/CCT Total # of Minutes Spent Total Time Spent with Patient: Total time spent is greater than 50% in coordination of care (as documented) at patient's floor/unit and/or counseling patient:
[2018-10-14 14:43] LABS: Basophils # (auto) 0.02 K/uL (0-0.2); Basophils % (auto) 0.1 %; Eosinophils # (auto) 0.11 K/uL (0-0.5); Eosinophils % (auto) 0.7 %; Hematocrit (blood only) 41.9 % (42-52); Hemoglobin 14.9 g/dL (14.0-18.0); Immature Granulocytes # (auto) 0.04 K/uL (0.00-0.02); Immature Granulocytes % (auto) 0.3 %; Lymphocytes # (auto) 1.41 K/uL (1.2-3.4); Lymphocytes % (auto) 9.1 %; Mean Corpuscular Hemoglobin 31.5 pg (25-34); Mean Corpuscular Hgb Conc 35.6 g/dL (32-36); Mean Corpuscular Volume 88.6 fL (80-100); Mean Platelet Volume 9.2 fL (7.4-10.4); Monocytes % (auto) 5.8 %; Neutrophils # (auto) 12.96 K/uL (1.4-6.5); Platelet Count 242 K/uL (130-400); RDW Coefficient of Variation 12.3 % (11.5-14.5); RDW Standard Deviation 39.6 fL (36.4-46.3); Red Blood Count 4.73 M/uL (4.7-6.1); White Blood Count 15.44 K/uL (4.8-10.8)
--- NOTE | 2018-10-14 15:05 | CT Scan Report ---
ABDOMEN AND PELVIS CT WITHOUT CONTRAST CT DOSE: 1022.27 mGy.cm HISTORY: ileus TECHNIQUE: Multiaxial CT images of the abdomen and pelvis were performed without contrast. A dose lo wering technique was utilized adhering to the principles of ALARA. COMPARISON STUDY: Abdomen and pelvis CT 07/22/2018. FINDINGS: Bibasilar linear densities consistent with subsegmental atelectasis. No pneumoperitoneum. N o pneumatosis. No suspicious lytic are blastic osseous lesions. Stable hypodense lesions within the l iver the largest in the right hepatic lobe measuring 4.9 cm. These likely represent cysts. Trace zafar splenic fluid. No splenic masses. The adrenal glands and pancreas are unremarkable. Cholecystectomy. There is a 3 cm diverticulum at the second portion of the duodenum. No retroperitoneal lymphadenopath y. Normal caliber abdominal aorta. No hydronephrosis. Mild bilateral perinephric edema. No renal ston es. Stable 2.6 cm cyst within the left kidney. Moderate midline body wall edema. Status post mesh rep air of a midline ventral hernia. There is fluid remaining at the hernia site. No herniated bowel at t his time. There is a tiny fat-containing midline ventral hernia identified. Right pelvic sidewall cys t measuring 5.7 cm remains unchanged. This results in mass effect along the bladder. Trace pelvic farooq e fluid. Colonic diverticulosis. No evidence for diverticulitis. Suboptimal evaluation for bowel path ology due to the lack of intravenous and oral contrast. No definite bowel wall thickening. Normal kathy endix. Multiple dilated loops of proximal to mid small bowel seen within the left side the abdomen. T hese gradually taper distally. The ileal loops are decompressed. Therefore, these findings favor a pa rtial small bowel obstruction. The exact transition point is likely identified. There are multiple lo ops of bowel matted against the ventral mesh. IMPRESSION: 1. Dilated gas and fluid-filled loops of small bowel within the left side the abdomen which demonstra te a gradual taper to the decompressed ileal loops. An exact as you point is not identified. However, this favors a partial small bowel obstruction. 2. Status post mesh repair of a ventral hernia. There is fluid within the previously identified herni a sac. 3. Trace ascites. 4. 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 5. Additional findings as described above. Electronically signed by: Bon Thomas M.D. 10/14/2018 3:04 PM
[2018-10-14 15:21] LABS: Albumin Level 3.3 gm/dl (3.4-5.0); BUN Creatinine Ratio 21.8 (10-20); Calcium 8.5 mg/dl (8.5-10.1); Creatinine Clr Calc Pharmacy 92.2 ml/min; Est GFR (African American) 100.9; Est GFR (Non-African American) 87.1; Magnesium 1.7 mg/dl (1.8-2.4); Potassium 3.8 mmol/L (3.5-5.1)
[2018-10-14 15:28] LABS: Bilirubin,Total 1.3 mg/dl (0.2-1); Globulin 3.4 gm/dl (2.5-4.0); Phosphorus 3.1 mg/dl (2.5-4.9); Total Protein 6.7 gm/dl (6.4-8.2)
[2018-10-14] MEDS ORDERED: ALUMINUM/MAGNESIUM SUSP 30 ML UDC PO PRN (16:20)
[2018-10-14] MEDS ORDERED: ZOLPIDEM TARTRATE 5 MG TAB PO PRN (16:20)
[2018-10-14] MEDS ORDERED: DICYCLOMINE HCL 10 MG CAP PO PRN (16:20)
[2018-10-14] MEDS ORDERED: ACETAMINOPHEN 325 MG TAB PO PRN (16:20)
[2018-10-14] MEDS ORDERED: MAGNESIUM HYDROXIDE SUSP 30 ML UDC PO PRN (16:20)
[2018-10-14] MEDS: CEFAZOLIN 1000MG 1,000 MG/7.5 ML SYR IV SCH ×2 (17:04→23:45)
[2018-10-14] MEDS: NSS + 20MEQ KCL 20 MEQ/1,000 ML BAG IV SCH (17:05)
[2018-10-14] MEDS: CHOLECALCIFEROL 1,000 UNITS TAB PO SCH (17:05)
[2018-10-14] MEDS: METOCLOPRAMIDE HCL INJ 5 MG/ML 2 ML VIAL IV SCH ×2 (17:05→22:16)
[2018-10-14] MEDS ORDERED: HydrALAZINE HCL 20 MG/ML VIAL IV ONE (17:31)
[2018-10-14] MEDS ORDERED: HydrALAZINE HCL 20 MG/ML VIAL IV PRN (17:32)
[2018-10-14] MEDS ORDERED: cefTRIAXone SODIUM 2,000 MG in DEXTROSE 5% 50 ML IV SCH (17:45)
--- NOTE | 2018-10-14 17:51 | Consultation ---
Date of Consultation October 14, 2018 Assessment & Plan (1) Ileus: Admit to [facility] on telemetry as per general surgery Vital signs every 4 hours Keep n.p.o. CBC CMP daily Replenish electrolytes Placed an NG tube with low intermittent suction Continue cefazolin, add on metronidazole 500 mg IV every 8 hours Gentle IV fluid hydration at 100 cc/h Pain management Nausea vomiting with Zofran and metoclopramide promethazine DVT prophylaxis heparin 5000 units every 12 hours Full code Present on Admission?: Yes (2) S/P hernia repair: Continue following as per surgery Present on Admission?: Yes (3) Constipation: Patient has partial bowel obstruction and constipation this is chronic issue. Wait for spontaneous bowel movement with resolution of small bowel obstruction. Present on Admission?: Yes (4) Transaminitis: Continue following liver enzymes Liver sono Follow-up hepatitis panel Avoid liver toxins Present on Admission?: Yes (5) Hypertension: Blood pressure is elevated today because patient did not take his medication in the morning Continue home medicine Monitor blood pressure Hydralazine 5 mg IV as needed every 6 hours for blood pressure over 160/90 Thank you for consult will follow Present on Admission?: Yes History of Present Illness Requesting Physician: Dr. Oscar Gonzalez MD [facility] general surgery Reason for Consultation: Management of chronic diseases Attending Physician: Susu Barron MD History of Present Illness Patient is a 72 years old male with past medical h istory of incisional hernia repair, irritable bowel syndrome, constipation, hypertension, osteoarthritis who who presents to the emergency room with a complaint of nausea vomiting abdominal distention and pain that started this morning and constipation since yesterday. Patient had a laparoscopic incisional hernia repair 8 days prior to this. Patient said that he vomited several times and his abdomen green, content and abdomen became distended. Patient reports that there was no blood in his vomit nor he noted melena or blood in his stool the day before. Patient reports that vomiting relieve this abdominal distention and help him with nausea. Patient denies fever chills chest pain shortness of breath frequency urgency hemoptysis hematemesis hematuria dysuria or melena. Labs were reviewed: White blood cell count of 15.44 hemoglobin of 14.9, hematocrit 41.9, platelets 242, PT 10.9, INR 1.1 sodium 136, potassium 3.8, chloride 100 anion gap 8, BUN 19 , creatinine 0.85, GFR 87.1 lactate 1.3 magnesium 1.7 AST 42 ALT 64, albumin 3.3, lipase 116, amylase 47. Urine cloudy negative nitrates and leukocyte esterase. CT abdomen and pelvis showed dilated gas and fluid-filled loops of small bowel within the left side the abdomen which demonstrates a gradual taper to the decompressed ileal loops. This favors a partial small bowel obstruction. Status post mesh repair of a ventral hernia. There is of fluid within the previous identified hernial sac. Trace ascites. 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 Patient is admitted to surgery on telemetry and medicine is to follow-up his chronic medical problems. Allergies Allergy/AdvReac Type Severity Reaction Status Date / Time Iodinated Contrast- Oral and Allergy Unknown SWELLING Verified 10/14/18 14:47 IV Dye Home Medications Home Medications Medication Instructions Recorded Confirmed Type hydrochlorothiazide 50 mg PO QAM 07/22/18 10/14/18 History Metamucil 1 tbsp PO QAM 09/18/18 10/14/18 History Probiotic Acidophilus Beads 1 cap PO QAM 09/18/18 10/14/18 History acetaminophen 1,000 mg PO Q6H PRN 09/18/18 10/14/18 History ascorbic acid (vitamin C) [Vitamin 500 mg PO QAM 09/18/18 10/14/18 History C] cholecalciferol (vitamin D3) 2,000 unit PO QDD 09/18/18 10/14/18 History [Vitamin D3] docusate sodium [Stool Softener] 100 mg PO QAM 09/18/18 10/14/18 History docusate sodium [Stool Softener] 200 mg PO HS 09/18/18 10/14/18 History quinapril 80 mg PO QPM 09/18/18 10/14/18 History vitamin E 400 unit PO QAM 09/18/18 10/14/18 History amoxicillin 875 mg-potassium 1 tab PO Q12H #20 tab 09/26/18 10/14/18 Rx clavulanate 125 mg tablet dicyclomine 10 mg PO Q6 PRN #20 cap 10/13/18 10/14/18 Rx Patient History Medical History Incisional hernia (Acute) Vitamin D deficiency (Acute) Arthritis (Acute) Chronic knee pain (Acute) Constipation (Acute) History of diverticulitis History of kidney stones History of prostate cancer Hx of irritable bowel syndrome Hx of migraines Hypertension Osteoarthritis Surgical History H/O elbow surgery Right History of carpal tunnel release B/L History of cholecystectomy 09/14/14: MAC #3, ETT #8.0, HiLo Ora, Grade 2 View History of cystoscopy History of incision and drainage Right Hand History of incisional hernia repair (10/06/18) Laparoscopic Incisional Hernia Repair with mesh, Open Ventral Hernia Repair Dr. Gonzalez 10/06/18 History of repair of rotator cuff Right History of tooth extraction History of total shoulder replacement Right 09/14/16: MAC #3, Hi Lo Oral, HiLo Oral Hi/Lo Oral, Grade 2 View. Hx of prostatectomy 10/23/17: MAC #4, ETT #8, HiLo Oral, Grade 2 View Family History Father , age 89 "old age" Dementia Mother Cancer Social History Preferred Language: Thai Communication Ability: Effective Visual Impairment: No Limitations Fashion Buyer Required: No Beliefs That Will Affect Care: None marital status: marital status details: 3 children Current Living Situation: Spouse current occupation: [employer] Other Information That Helps Us Care for You: No Feels Safe at Home: Yes Safety Concerns: Feels Safe At This Time Smoking Status: Never smoker Tobacco Type: cigarettes and pipe ; Cigarettes Per Day: smoked < 1 year ; Second Hand Exposure: No ; Hx Alcohol Use: No Hx Substance Use: No Review of Systems Review of Systems: All systems reviewed & are unremarkable except as noted in HPI & below Physical Exam Constitutional: WD/WN, vitals as above well developed and + ill appearing Eyes: PERRL, conjunctivae normal, anicteric sclerae ENMT: external ear and nose normal, oropharynx normal Neck: trachea midline, no thyromegaly Respiratory: normal respiratory effort, lungs clear to auscultation Cardiovascular: RRR, no murmur, no edema Gastrointestinal (Abdomen): Inspection/Auscultation: + abdomen distended Percussion/Palpation: + abdomen tender and + dullness to percussion surgical incisions from laparoscopic hernia repair C/D/I Musculoskeletal: no cyanosis or clubbing, extremities motor strength 5/5 Skin: no rashes, warm and dry Neurologic: patellar DTR's 2+ bilat, sensation intact Psychiatric: A+Ox3, euthymic affect Lymphatic: no cervical or axillary lymphadenopathy Results & Data Vital Signs (Past 12 Hours) Vital Signs Temp Pulse Pulse Resp BP BP Pulse Ox 10/14/18 16:24 36.7 C 73 18 170/101 H 93 10/14/18 15:40 84 18 141/103 H 96 10/14/18 13:56 36.8 C 101 H 18 153/79 H 94 PG Care Time/CCT Total # of Minutes Spent Total Time Spent with Patient: Total time spent is greater than 50% in coordination of care (as documented) at patient's floor/unit and/or counseling patient: (1) Constipation Constipation type: other constipation type Qualified Code(s): K59.09 - Other constipation (2) Hypertension Hypertension type: essential hypertension Qualified Code(s): I10 - Essential (primary) hypertension
[2018-10-14] MEDS ORDERED: HydrALAZINE HCL 20 MG/ML VIAL ONE (17:59)
--- NOTE | 2018-10-14 19:50 | Ultrasound Report ---
US liver HISTORY: 72 years-old Male transaminitis acute right upper quadrant abdominal pain COMPARISON: CT abdomen and pelvis of same day TECHNIQUE: Multiple real-time significant images of the abdominal right upper quadrant were obtained assessing grayscale appearance and color flow FINDINGS: The pancreas is mostly obscured by bowel gas. The visualized pancreas is unremarkable. Multiple hepat ic cysts are redemonstrated, largest demonstrating internal septations within the right hepatic lobe measuring up to 5.2 cm. There is no intrahepatic biliary ductal dilation. Cholecystectomy. Common margarita e duct is normal, 7 mm. The imaged right kidney is unremarkable without hydronephrosis. IMPRESSION: 1. Cholecystectomy. 2. No biliary ductal dilation. 3. Hepatic cysts redemonstrated. The above report was generated using voice recognition software. It may contain grammatical, syntax o r spelling errors. Electronically signed by: Miguel Angel Bush M.D. 10/14/2018 7:49 PM
[2018-10-14] MEDS: HEPARIN SOD 5,000 UNIT/0.5 ML VIAL SQ SCH (20:11)
[2018-10-14] MEDS: metroNIDAZOLE 500 MG/100 ML BAG IV SCH (20:12)
[2018-10-14] MEDS: FAMOTIDINE 20 MG in SYRINGE 3 ML IV SCH (20:12)
[2018-10-15] MEDS ORDERED: CHLORASEPTIC 1.4% SOLN 180 ML BTL MT PRN (00:01)
[2018-10-15] MEDS: NSS + 20MEQ KCL 20 MEQ/1,000 ML BAG IV SCH ×3 (02:14→22:03)
[2018-10-15] MEDS: METOCLOPRAMIDE HCL INJ 5 MG/ML 2 ML VIAL IV SCH ×4 (04:16→21:21)
[2018-10-15] MEDS: metroNIDAZOLE 500 MG/100 ML BAG IV SCH ×3 (04:24→21:19)
--- NOTE | 2018-10-15 07:07 | Surgery Progress Note ---
Date of Service October 15, 2018 Assessment & Plan (1) Partial bowel obstruction: vitals stable- NG came out this am- min out over 12 hrs Mg low on adm had 3 loose bms, urine output is good abd- min distention when supine, some bs, nontender cont ice only, hold NG, check c diff, add ppn for some calories and protein recheck later today- discussed possible need for reinsertion of NG replace Mg Results & Data Vital Signs (Past 12 Hours) Vital Signs Temp Pulse Pulse Resp BP Pulse Ox 10/15/18 04:27 37.4 C 75 20 136/90 93 10/15/18 00:06 37.2 C 92 H 20 152/96 H 93 10/15/18 00:00 87 10/14/18 20:14 36.9 C 82 20 163/86 H 95 PG Care Time/CCT Total # of Minutes Spent Total Time Spent with Patient: Total time spent is greater than 50% in coordination of care (as documented) at patient's floor/unit and/or counseling patient:
[2018-10-15 07:50] LABS: Basophils # (auto) 0.03 K/uL (0-0.2); Basophils % (auto) 0.2 %; Eosinophils # (auto) 0.33 K/uL (0-0.5); Eosinophils % (auto) 2.7 %; Hematocrit (blood only) 41.4 % (42-52); Hemoglobin 14.6 g/dL (14.0-18.0); Immature Granulocytes # (auto) 0.04 K/uL (0.00-0.02); Immature Granulocytes % (auto) 0.3 %; Lymphocytes # (auto) 2.49 K/uL (1.2-3.4); Lymphocytes % (auto) 20.4 %; Mean Corpuscular Hemoglobin 31.9 pg (25-34); Mean Corpuscular Hgb Conc 35.3 g/dL (32-36); Mean Corpuscular Volume 90.4 fL (80-100); Mean Platelet Volume 8.9 fL (7.4-10.4); Monocytes % (auto) 7.4 %; Neutrophils # (auto) 8.39 K/uL (1.4-6.5); Platelet Count 246 K/uL (130-400); RDW Coefficient of Variation 12.7 % (11.5-14.5); RDW Standard Deviation 41.7 fL (36.4-46.3); Red Blood Count 4.58 M/uL (4.7-6.1); White Blood Count 12.18 K/uL (4.8-10.8)
[2018-10-15] MEDS: MAGNESIUM SULFATE / D5W 1 GM/100 ML BAG IV SCH ×2 (07:53→09:00)
[2018-10-15 08:22] LABS: Albumin Level 3.3 gm/dl (3.4-5.0); BUN Creatinine Ratio 20.5 (10-20); Calcium 8.6 mg/dl (8.5-10.1); Est GFR (Non-African American) 82.8; Potassium 3.9 mmol/L (3.5-5.1)
[2018-10-15 08:30] LABS: Bilirubin,Total 1.2 mg/dl (0.2-1); Globulin 3.3 gm/dl (2.5-4.0); Thyroid Stimulating Hormone 1.12 uIu/ml (0.300-4.500); Total Protein 6.6 gm/dl (6.4-8.2)
[2018-10-15] MEDS: FAMOTIDINE 20 MG in SYRINGE 3 ML IV SCH ×2 (09:04→21:20)
[2018-10-15] MEDS: HEPARIN SOD 5,000 UNIT/0.5 ML VIAL SQ SCH ×2 (09:05→21:21)
[2018-10-15] MEDS: CEFAZOLIN 1000MG 1,000 MG/7.5 ML SYR IV SCH ×3 (09:05→23:38)
[2018-10-15 09:07] LABS: Estimated Average Glucose 111 mg/dl; Hemoglobin A1C 5.5 % (4.5-5.6)
[2018-10-15 09:08] LABS: Hepatitis B Surface Antigen Neg (Neg)
[2018-10-15] MEDS: ASCORBIC ACID 500 MG TAB PO SCH (09:15)
[2018-10-15] MEDS: hydroCHLOROthiazide 25 MG TAB PO SCH (09:15)
[2018-10-15] MEDS ORDERED: TPN/PPN CONSULT PHARMACY PRN (09:28)
[2018-10-15 09:37] LABS: Hepatitis C IgG 13Yrs+Old_Rflx Neg (Neg)
[2018-10-15] MEDS ORDERED: TPN/PPN CONSULT PHARMACY STA (09:57)
[2018-10-15 11:02] LABS: Magnesium 1.8 mg/dl (1.8-2.4); Phosphorus 2.5 mg/dl (2.5-4.9)
[2018-10-15] MEDS ORDERED: ENALAPRIL MALEATE 10 MG TAB PO ONE (15:00)
[2018-10-15] MEDS ORDERED: DEXTROSE 10% 1,000 ML IV PRN (16:00)
[2018-10-15] MEDS ORDERED: CUSTOM PERIPHERAL PN IV SCH (16:00)
--- NOTE | 2018-10-15 16:09 | Hospitalist Progress Note ---
Date of Service October 15, 2018 Assessment & Plan (1) Ileus: Has history of incisional hernia and ventral hernia repair with Dr. Gonzalez on 10/06/2018. - Pain management - NPO per primary team - Abx per primary team (2) S/P hernia repair: - Continue following as per surgery (3) Constipation: Patient has severe IBS per patient. Constipation is chronic issue. - Wait for spontaneous bowel movement with resolution of small bowel obstruction. (4) Transaminitis: Very mild AST elevation on admission at 42. - By 10/15, back to normal. Liver ultrasound on 10/15 only showed some liver cysts. - No further inpatient needs (5) Hypertension: Blood pressure was initially elevated because patient did not take his medication in the morning. - Continue home medicine - Monitor blood pressure - Hydralazine 5 mg IV as needed every 6 hours for blood pressure over 160/90 (6) DVT prophylaxis: Heparin 5000 units BID We will follow along. Subjective No pain today. Had 6 BMs today without any blood or melena. Review of Systems Review of Systems: All systems reviewed & are unremarkable except as noted in HPI & below Physical Exam Constitutional: WD/WN, vitals as above Eyes: EOM intact bilaterally; no conjunctival abnormality ENMT: external ear and nose normal, oropharynx normal Neck: trachea midline, no thyromegaly normal visual inspection Respiratory: normal respiratory effort, lungs clear to auscultation no respiratory distress Cardiovascular: RRR, no murmur, no edema Gastrointestinal (Abdomen): Inspection/Auscultation: abdomen normal to inspection and + hypoactive bowel sounds; abdomen not distended Percussion/Palpation: abdomen soft; abdomen nontender, no guarding and abdomen not rigid Musculoskeletal: no cyanosis or clubbing, extremities motor strength 5/5 Skin: no rashes, warm and dry Neurologic: moves all extremities and awake Psychiatric: Orientation: alert, oriented to person and cooperative Results & Data Vital Signs (Past 12 Hours) Vital Signs Temp Pulse Pulse Resp BP Pulse Ox 10/15/18 15:03 37.0 C 78 18 159/84 H 94 10/15/18 11:37 36.9 C 78 18 146/82 H 94 10/15/18 08:00 68 10/15/18 07:19 75 18 157/97 H 94 10/15/18 04:27 37.4 C 75 20 136/90 93 PG Care Time/CCT Total # of Minutes Spent Total Time Spent with Patient: Total time spent is greater than 50% in coordination of care (as documented) at patient's floor/unit and/or counseling patient: (1) Constipation Constipation type: other constipation type Qualified Code(s): K59.09 - Other constipation (2) Hypertension Hypertension type: essential hypertension Qualified Code(s): I10 - Essential (primary) hypertension
[2018-10-15] MEDS: CHOLECALCIFEROL 1,000 UNITS TAB PO SCH (16:56)
[2018-10-16] MEDS: METOCLOPRAMIDE HCL INJ 5 MG/ML 2 ML VIAL IV SCH ×4 (04:27→21:32)
[2018-10-16] MEDS: metroNIDAZOLE 500 MG/100 ML BAG IV SCH ×2 (04:27→11:36)
--- NOTE | 2018-10-16 06:46 | Surgery Progress Note ---
Date of Service October 16, 2018 Assessment & Plan (1) Partial bowel obstruction: vitals stable- min pain, no emesis, good urine output loose bms- c diff neg on ppn- will try clear liquids and advance slowly will req 1-2 addnl days in hospital Results & Data Vital Signs (Past 12 Hours) Vital Signs Temp Pulse Pulse Resp BP Pulse Ox 10/16/18 03:44 36.9 C 72 19 154/90 H 93 10/15/18 23:27 37.1 C 87 20 159/98 H 95 10/15/18 23:15 73 10/15/18 19:00 37.1 C 70 20 151/78 H 98 PG Care Time/CCT Total # of Minutes Spent Total Time Spent with Patient: Total time spent is greater than 50% in coordination of care (as documented) at patient's floor/unit and/or counseling patient:
[2018-10-16 08:33] LABS: Basophils # (auto) 0.05 K/uL (0-0.2); Basophils % (auto) 0.5 %; Eosinophils # (auto) 0.32 K/uL (0-0.5); Eosinophils % (auto) 3.5 %; Hematocrit (blood only) 40.4 % (42-52); Immature Granulocytes # (auto) 0.03 K/uL (0.00-0.02); Immature Granulocytes % (auto) 0.3 %; Lymphocytes # (auto) 1.68 K/uL (1.2-3.4); Lymphocytes % (auto) 18.3 %; Mean Corpuscular Hgb Conc 34.7 g/dL (32-36); Mean Corpuscular Volume 89.4 fL (80-100); Monocytes # (auto) 0.82 K/uL (0.11-0.59); Neutrophils # (auto) 6.26 K/uL (1.4-6.5); Neutrophils % (auto) 68.4 %; Platelet Count 250 K/uL (130-400); RDW Coefficient of Variation 12.4 % (11.5-14.5); RDW Standard Deviation 40.3 fL (36.4-46.3); Red Blood Count 4.52 M/uL (4.7-6.1); White Blood Count 9.16 K/uL (4.8-10.8)
[2018-10-16] MEDS: HEPARIN SOD 5,000 UNIT/0.5 ML VIAL SQ SCH ×2 (08:34→21:32)
[2018-10-16] MEDS: ENALAPRIL MALEATE 10 MG TAB PO SCH ×3 (08:35→10:13)
[2018-10-16] MEDS: hydroCHLOROthiazide 25 MG TAB PO SCH (08:35)
[2018-10-16] MEDS: CEFAZOLIN 1000MG 1,000 MG/7.5 ML SYR IV SCH ×3 (08:36→23:28)
[2018-10-16] MEDS: FAMOTIDINE 20 MG in SYRINGE 3 ML IV SCH ×2 (08:36→21:32)
[2018-10-16] MEDS: ASCORBIC ACID 500 MG TAB PO SCH (08:36)
[2018-10-16 09:06] LABS: Albumin Level 3.4 gm/dl (3.4-5.0); BUN Creatinine Ratio 19.1 (10-20); Calcium 8.9 mg/dl (8.5-10.1); Creatinine Clr Calc Pharmacy 97.6 ml/min; Est GFR (African American) 103.4; Est GFR (Non-African American) 89.2; Magnesium 2.1 mg/dl (1.8-2.4); Potassium 3.7 mmol/L (3.5-5.1)
[2018-10-16 09:08] LABS: Albumin Globulin Ratio 1.1 (0.9-2); Bilirubin,Total 0.9 mg/dl (0.2-1); Globulin 3.2 gm/dl (2.5-4.0); Phosphorus 2.5 mg/dl (2.5-4.9); Total Protein 6.6 gm/dl (6.4-8.2)
[2018-10-16] MEDS: NSS + 20MEQ KCL 20 MEQ/1,000 ML BAG IV SCH (09:37)
[2018-10-16] MEDS ORDERED: Nursing to Pharmacy Communication ONE (09:38)
--- NOTE | 2018-10-16 11:30 | Pharmacy Report ---
PHA: Parenteral Nutrition Con - Date of Service October 16, 2018 - Scope Pharmacy was consulted on 10/15/18 to manage parenteral nutrition orders for this patient. - Subjective The patient is currently on day 2 of peripheral parenteral nutrition for partial SBO. - Objective Height: 5 ft 10 in Weight: 97.2 kg Diet: Clear Liquid Intake & Output (24hrs):: Intake & Output 10/14/18 10/15/18 10/16/18 10/17/18 06:59 06:59 06:59 06:59 Intake Total 1810 / 1810 3891.667 / 3891.667 290 / 290 Output Total 951 / 951 1876 / 1876 Balance 859 / 859 / 290 / 290 Weight 97.6 kg 97.2 kg Laboratory Data (Last 24 Hr):: 10/16/18 08:06 Sodium 140 Potassium 3.7 Chloride 108 H Carbon Dioxide 26 BUN 15 Creatinine 0.80 Glucose 112 H Calcium 8.9 Phosphorus 2.5 Magnesium 2.1 Total Bilirubin 0.9 AST 33 ALT 42 Alkaline Phosphatase 64 Albumin 3.4 Nutrition Assessment:: Please refer to the Notes section of the EMR for the most recent data collector note. - Plan For day 2 of PN administration, the following will be ordered: Macronutrients Amino acids 100 grams/day (at goal) Dextrose 150 grams/day (goal 200g/day) Lipids 25 grams/day (at goal) Micronutrients Combined electrolytes 20 mL - contains 35 mEq Na, 20 meq K, 4.5 mEq Ca, 5 mEq Mg, 35 mEq Cl, 29.5 mEq acetate per 20 mL Potassium phosphate 21 mMol Magnesium sulfate 8.12 mEq Multivitamins 10 mL Trace Elements 1 mL Additional additives: Thiamine 100mg Total volume 2400 mL to be infused over 24 hrs will provide 1160 kcal/day Final osmolarity 768 mOsm/L (maximum for PPN is 900 mOsm/L) Labs, as indicated, will be ordered per protocol Pharmacy will continue to follow and adjust parenteral nutrition orders on a daily basis. Thank you for allowing us to participate in the care of this patient.
[2018-10-16 15:02] LABS: Hepatitis A Antibody IgM NON-REACTIVE (NON-REACTIVE); Hepatitis B Core Antibody IgM NON-REACTIVE (NON-REACTIVE)
--- NOTE | 2018-10-16 15:48 | Hospitalist Progress Note ---
Date of Service October 16, 2018 Assessment & Plan (1) Ileus: Has history of incisional hernia and ventral hernia repair with Dr. Gonzalez on 10/06/2018. - Pain management - Advance diet per primary team - Abx per primary team (2) S/P hernia repair: - Continue following as per surgery (3) Constipation: Patient has severe IBS per patient. Constipation and diarrhea are chronic issues. - As above (4) Transaminitis: Very mild AST elevation on admission at 42. - By 10/15, back to normal. Liver ultrasound on 10/15 only showed some liver cysts. - No further inpatient needs (5) Hypertension: Blood pressure was initially elevated because patient did not take his medication in the morning. - Continue home medicine - Monitor blood pressure - Hydralazine 5 mg IV as needed every 6 hours for blood pressure over 180/110 (6) DVT prophylaxis: Heparin 5000 units BID We will follow along. Subjective With watery stools, but otherwise no abdominal pain. Tolerating his clear liquids well. Review of Systems Review of Systems: All systems reviewed & are unremarkable except as noted in HPI & below Physical Exam Constitutional: WD/WN, vitals as above Eyes: EOM intact bilaterally; no conjunctival abnormality ENMT: external ear and nose normal, oropharynx normal Neck: trachea midline, no thyromegaly normal visual inspection Respiratory: normal respiratory effort, lungs clear to auscultation no respiratory distress Cardiovascular: RRR, no murmur, no edema Gastrointestinal (Abdomen): Inspection/Auscultation: abdomen normal to inspection and + hypoactive bowel sounds; abdomen not distended Percussion/Palpation: abdomen soft; abdomen nontender, no guarding and abdomen not rigid Musculoskeletal: no cyanosis or clubbing, extremities motor strength 5/5 Skin: no rashes, warm and dry Neurologic: moves all extremities and awake Psychiatric: Orientation: alert, oriented to person and cooperative Results & Data Vital Signs (Past 12 Hours) Vital Signs Temp Pulse Pulse Resp BP Pulse Ox 10/16/18 15:15 70 10/16/18 15:09 37.0 C 72 20 167/94 H 95 10/16/18 11:44 36.8 C 79 18 162/90 H 93 10/16/18 08:00 58 L 10/16/18 07:27 37.0 C 73 18 150/89 H 93 10/16/18 03:44 36.9 C 72 19 154/90 H 93 PG Care Time/CCT Total # of Minutes Spent Total Time Spent with Patient: Total time spent is greater than 50% in coordination of care (as documented) at patient's floor/unit and/or counseling patient: (1) Constipation Constipation type: other constipation type Qualified Code(s): K59.09 - Other constipation (2) Hypertension Hypertension type: essential hypertension Qualified Code(s): I10 - Essential (primary) hypertension
[2018-10-16] MEDS: CHOLECALCIFEROL 1,000 UNITS TAB PO SCH (15:57)
[2018-10-16] MEDS ORDERED: CUSTOM PERIPHERAL PN IV SCH (16:00)
[2018-10-16] MEDS ORDERED: ENALAPRIL MALEATE 10 MG TAB PO SCH (21:00)
[2018-10-17] MEDS: METOCLOPRAMIDE HCL INJ 5 MG/ML 2 ML VIAL IV SCH ×2 (03:08→09:14)
--- NOTE | 2018-10-17 07:22 | Surgery Progress Note ---
Date of Service October 17, 2018 Assessment & Plan (1) Partial bowel obstruction: bowels are moving and loose- + flatus Excellent urine output He wants to go home- no pain, or nausea abd is soft- has bs plan d/c later this am- add low fiber diet ask turn sewer to give info cont ppn this am, cont empiric Flagyl encourage fluids at home, small meals see in office next week Results & Data Vital Signs (Past 12 Hours) Vital Signs Temp Pulse Pulse Resp BP Pulse Ox 10/17/18 07:10 90 10/17/18 06:29 36.4 C L 74 20 146/84 H 95 10/17/18 05:07 139/87 10/17/18 05:06 37.0 C 78 20 153/95 H 93 10/17/18 00:30 76 10/17/18 00:08 36.7 C 80 20 94 10/16/18 20:04 37.0 C 78 20 144/88 H 94 PG Care Time/CCT Total # of Minutes Spent Total Time Spent with Patient: Total time spent is greater than 50% in coordination of care (as documented) at patient's floor/unit and/or counseling patient:
[2018-10-17 07:43] LABS: Basophils # (auto) 0.03 K/uL (0-0.2); Basophils % (auto) 0.3 %; Eosinophils # (auto) 0.41 K/uL (0-0.5); Eosinophils % (auto) 3.5 %; Hematocrit (blood only) 39.6 % (42-52); Hemoglobin 14.1 g/dL (14.0-18.0); Immature Granulocytes # (auto) 0.03 K/uL (0.00-0.02); Immature Granulocytes % (auto) 0.3 %; Lymphocytes # (auto) 2.26 K/uL (1.2-3.4); Lymphocytes % (auto) 19.1 %; Mean Corpuscular Hgb Conc 35.6 g/dL (32-36); Mean Corpuscular Volume 89.8 fL (80-100); Monocytes # (auto) 1.16 K/uL (0.11-0.59); Monocytes % (auto) 9.8 %; Neutrophils # (auto) 7.94 K/uL (1.4-6.5); Nucleated RBC # (auto) 0.02 K/uL (0-0); Nucleated RBC % (auto) 0.2 %; Platelet Count 270 K/uL (130-400); RDW Coefficient of Variation 12.4 % (11.5-14.5); RDW Standard Deviation 40.5 fL (36.4-46.3); Red Blood Count 4.41 M/uL (4.7-6.1); White Blood Count 11.83 K/uL (4.8-10.8)
[2018-10-17] MEDS: CEFAZOLIN 1000MG 1,000 MG/7.5 ML SYR IV SCH (07:55)
[2018-10-17] MEDS: ASCORBIC ACID 500 MG TAB PO SCH (07:56)
[2018-10-17] MEDS: FAMOTIDINE 20 MG in SYRINGE 3 ML IV SCH (07:56)
[2018-10-17] MEDS: HEPARIN SOD 5,000 UNIT/0.5 ML VIAL SQ SCH (07:57)
[2018-10-17] MEDS: hydroCHLOROthiazide 25 MG TAB PO SCH (07:57)
[2018-10-17 08:15] LABS: Albumin Level 3.4 gm/dl (3.4-5.0); BUN Creatinine Ratio 20.6 (10-20); Creatinine Clr Calc Pharmacy 92.2 ml/min; Est GFR (African American) 101.4; Est GFR (Non-African American) 87.5; Magnesium 2.1 mg/dl (1.8-2.4); Potassium 3.7 mmol/L (3.5-5.1)
[2018-10-17 08:21] LABS: Albumin Globulin Ratio 1.1 (0.9-2); Bilirubin,Total 0.8 mg/dl (0.2-1); Phosphorus 3.5 mg/dl (2.5-4.9); Total Protein 6.4 gm/dl (6.4-8.2)
--- NOTE | 2018-10-18 16:00 | Discharge Summary ---
PRINCIPAL DIAGNOSIS: Partial small-bowel obstruction. HISTORY OF PRESENT ILLNESS: The patient is a 72-year-old male who underwent laparoscopic incisional hernia repair on 10/06/2018 and did relatively well, but did have some delayed GI function, being discharged home on 10/09/2018. He did relatively well, was eating a fair amount of food and then developed abdominal distention, nausea and vomiting, presenting to the Emergency Room initially 10/13/2018 in the late evening and then being called back the next day and being admitted with partial bowel obstruction. He was initially placed an NG tube, which came out relatively quickly. He seemed to advance with his bowels functioning, passing flatus, loose bowel movements. His C. diff was negative. We did place him on TPN for several days and he did progress to where we thought he was stable for discharge home on 10/17/2018 to be seen in the surgical clinic within 1 week.
--- NOTE | 2018-10-18 23:35 | Discharge Summary ---
PRINCIPAL DIAGNOSIS: Partial small-bowel obstruction. HISTORY OF PRESENT ILLNESS: The patient is a 72-year-old male who underwent prior laparoscopic incisional hernia repair and after discharged home several days, developed abdominal pain and nausea, presenting to the Emergency Room and then sent home and he was called back to the Emergency Room with findings on x-ray consistent with ileus versus partial obstruction. He was admitted to the hospital on 10/14/2018, He had an NG tube placed, which essentially was then placed overnight with minimal drainage, fell out in the morning. We left the NG tube out and over the next several days, the patient did not have any emesis, was able to be advanced in his diet. His bowels began to move rather briskly. His C. diff was negative. He was felt stable for discharge on 10/17/2018 on low residue diet and to be followed closely in the surgical clinic.
== END 2018-10-17 11:39 | disposition home or self-care (01) | DRG 390 ==
LOC: ED 13:48 → SUATTDRO 14:18 → 2N 14:39 → SUATTDRO 14:39 → 2N 15:40

== ENCOUNTER 2019-08-03 05:32 | Observation (INO) ==
--- NOTE | 2019-07-31 08:33 | Anesthesiology Consultation ---
Date of Service July 31, 2019 Assessment & Plan Chart Review Chart Review: Acceptable Risk for Surgery and Patient NOT seen in Pre Admission Testing Low risk COVID screening, was shopping in [facility] with mask on. No sxs. COVID testing 07/30/19 (unsure if test will be back in time, may need rule.) Consults Requested none PCP note from 06/10/19. Had a full physical "doing well, exam unremarkable, no red flags" History Surgery Operation Date: 08/03/19 07:00 Proposed Procedures p Open Incisional Hernia Repair - Oscar Gonzalez MD, FACS Height/Weight Height: 5 ft 10 in Weight: 97.522 kg Allergies Allergy/AdvReac Type Severity Reaction Status Date / Time Iodinated Contrast Media Allergy Severe SWELLING Verified 07/27/19 11:47 [Iodinated Contrast- Oral to head and IV Dye] Medications Home Medications Medication Instructions Recorded Confirmed Last Taken Metamucil 1 tbsp PO QAM 09/18/18 07/27/19 10/05/18 10:00 acetaminophen 1,000 mg PO Q6H PRN 09/18/18 07/27/19 10/05/18 00:30 ascorbic acid (vitamin C) [Vitamin 500 mg PO QAM 09/18/18 07/27/19 10/05/18 09:00 C] cholecalciferol (vitamin D3) 2,000 unit PO QDD 09/18/18 07/27/19 10/05/18 19:00 [Vitamin D3] docusate sodium [Stool Softener] 100 mg PO QAM 09/18/18 07/27/19 10/05/18 09:00 docusate sodium [Stool Softener] 200 mg PO HS 09/18/18 07/27/19 10/05/18 19:00 vitamin E 400 unit PO QAM 09/18/18 07/27/19 2 Weeks Ago ~09/22/18 hydrochlorothiazide 50 mg tablet See Rx Instructions .ROUTE 06/10/19 07/27/19 Unknown .COMPLEX #90 tab quinapril 40 mg tablet See Rx Instructions .ROUTE 06/25/19 07/27/19 Unknown .COMPLEX #180 tablet dicyclomine 10 mg capsule 10 mg PO QID PRN 7 Days #28 cap 07/02/19 07/27/19 Unknown Carotomax 1 tab PO QPM 07/27/19 07/27/19 Unknown [id number] 1 cap PO QPM 07/27/19 07/27/19 Unknown [krill oil] Past Medical History Medical History Arthritis (Acute) Chronic knee pain (Acute) Constipation (Acute) Diverticulosis of colon (Inactive) Elevated prostate specific antigen (PSA) (Inactive) Enlarged prostate with lower urinary tract symptoms (LUTS) (Inactive) History of diverticulitis History of kidney stones History of prostate cancer Hx of irritable bowel syndrome Hx of migraines Hypertension Incisional hernia (Resolved) Knee effusion (Inactive) Osteoarthritis Prostate cancer (Resolved) Prostatitis (Inactive) Skin benign neoplasm (Inactive) Transaminitis (Inactive) Urinary incontinence (Inactive) Past Family History Family History Father , age 89 "old age" Dementia Myocardial infarction Family history of diabetes mellitus Mother Cancer Family/Other Prostate cancer Self Other No family history of adverse response to anesthesia Denies family history of Ovarian cancer Breast cancer Colorectal cancer Past Surgical History Surgical History H/O elbow surgery Right History of carpal tunnel release B/L History of cholecystectomy 09/14/14: MAC #3, ETT #8.0, HiLo Ora, Grade 2 View History of colonoscopy History of cystoscopy History of incision and drainage Right Hand History of incisional hernia repair (10/06/18) Laparoscopic Incisional Hernia Repair with mesh, Open Ventral Hernia Repair Dr. Gonzalez 10/06/18 History of repair of rotator cuff Right History of tooth extraction History of total shoulder replacement Right 09/14/16: MAC #3, Hi Lo Oral, HiLo Oral Hi/Lo Oral, Grade 2 View. Hx of prostatectomy 10/23/17: MAC #4, ETT #8, HiLo Oral, Grade 2 View Social History Smoking Status: Former smoker tobacco type: cigarettes and pipe Smoking cigarettes per day: smoked < 1 year Do You Dip or Chew Tobacco: No (Mar 23, 1989 quit) Smoking End Date: quit in teenage years Hx Alcohol Use: No Hx Substance Use: No substance use type: does not use Testing Laboratory Results 07/30/19 H/H 15.3/45.1 PLT 266 K 3.4 BUN 19 Creat 0.99 gluc 111 10/15/18 HgbA1c 5.5 Electrocardiogram Date: 10/15/18 Findings: + NSR @ (65), + RBBB and + T wave inversion (V1-6)
[2019-08-03] MEDS ORDERED: LR 15ML/HR IV SCH (06:00)
[2019-08-03] MEDS ORDERED: CEFAZOLIN 2000MG 2,000 MG/15 ML SYR IV SCH (06:00)
--- NOTE | 2019-08-03 06:31 | History & Physical Bridge Note ---
Date of Service August 03, 2019 History & Physical Bridge Note I have examined the patient, reviewed the History & Physical and in the interval since the performance of the History & Physical I have noted the following changes of clinical significance: no changes noted
[2019-08-03] MEDS ORDERED: CEFAZOLIN 250 MG/ML 1 GM VIAL ONE (06:34)
[2019-08-03] MEDS ORDERED: BUPIVACAINE 0.5 % 5 MG/1 ML MPF 30ML VIAL ONE (06:34)
[2019-08-03] MEDS ORDERED: fentaNYL citrate 100 MCG/2 ML VIAL ONE (06:52)
[2019-08-03] MEDS ORDERED: ONDANSETRON INJ 2 MG/ML 2 ML VIAL IV PRN ×2 (06:54→10:10)
[2019-08-03] MEDS ORDERED: HYDROmorphone INJ 2 MG/ML SYR/VIAL IV PRN (06:54)
[2019-08-03] MEDS ORDERED: PROMETHAZINE HCL 12.5 MG in SODIUM CHLORIDE 0.9% 50 ML IV PRN ×2 (06:54→10:10)
[2019-08-03] MEDS ORDERED: ATROPINE SULFATE 0.1 MG/ML 10ML SYR IV PRN (06:54)
[2019-08-03] MEDS ORDERED: ePHEDrine sulfate 50 MG/ML AMP IV PRN (06:54)
[2019-08-03] MEDS ORDERED: METOCLOPRAMIDE HCL INJ 5 MG/ML 2 ML VIAL IV PRN (06:54)
[2019-08-03] MEDS ORDERED: DEXAMETHASONE SOD INJ 4 MG/ML VIAL ONE (08:27)
[2019-08-03] MEDS ORDERED: PHENYLEPHRINE 100MCG/ML 5ML SYR ONE (08:27)
[2019-08-03] MEDS ORDERED: NEOSTIGMINE METHYLSULFATE 5 MG/5 ML SYR ONE (08:27)
[2019-08-03] MEDS ORDERED: PROPOFOL IV EMULSION 10 MG/ML 20 ML VIAL IV ONE (08:27)
[2019-08-03] MEDS ORDERED: ONDANSETRON INJ 2 MG/ML 2 ML VIAL ONE (08:27)
[2019-08-03] MEDS ORDERED: ROCURONIUM BROMIDE 10 MG/ML 5 ML VIAL IV ONE (08:27)
[2019-08-03] MEDS ORDERED: GLYCOPYRROLATE 0.2 MG/ML VIAL ONE (08:27)
[2019-08-03] MEDS ORDERED: ePHEDrine sulfate 50 MG/ML SYR ONE (08:27)
[2019-08-03] MEDS ORDERED: LIDOCAINE 2% 20 MG/ML 5 ML SYR IV ONE (08:27)
--- NOTE | 2019-08-03 08:27 | Post Operative Brief Note ---
PG Immediate Post Op with CF Date of Surgery August 03, 2019 Pre & Post Diagnosis Operation Date: 08/03/19 07:00 Pre-Op Diagnosis: Incisional Hernia Post-Op Diagnosis: Incisional Hernia I identified the patient and participated in the time-out.: Yes Procedure Operation Date: 08/03/19 07:00 Actual Procedures p Open Incisional Hernia Repair with Mesh - Oscar Gonzalez MD, FACS Surgeon Oscar Gonzalez MD, FACS Student Development Specialist Ricci Bhatt Estimated Blood Loss 20 Findings Consistent with Post-Op Diagnosis Specimens Specimen Description: Permanent Specimen A: Incisional Hernia Sac Drains Dejesus Catheter and Frankie-Madsen Drain (15Fr Round)
[2019-08-03] MEDS ORDERED: ACETAMINOPHEN 1,000 MG/100 ML VIAL IV STA (08:49)
[2019-08-03] MEDS: fentaNYL citrate 100 MCG/2 ML VIAL IV PRN ×2 (09:01→09:14)
--- NOTE | 2019-08-03 09:02 | Operative Report (OR) ---
DATE OF OPERATION: 08/03/2019 NAME OF OPERATION: Incisional hernia repair with C-Qur mesh. PREOPERATIVE DIAGNOSIS: Incisional hernia. POSTOPERATIVE DIAGNOSIS: Incisional hernia. STAFF SURGEON: Dr. Gonzalez. REVENUE INTEGRITY ANALYST: Wiley Bhatt PA-C. ANESTHESIA: General. DESCRIPTION OF PROCEDURE: The patient was brought in the Operating Room and placed on the operating table in supine position. Pneumatic stockings, Dejesus catheter, orogastric tube were placed. His abdomen was prepped and draped in usual fashion. Incision was made above the umbilicus carrying dissection down to the fascia. I was able to identify the area of the prior mesh which was just above the umbilicus. The sac was identified. It was then opened. I was able to pass my finger into the abdomen. The patient had some mild adhesions to the prior mesh, but there was no defect in that area. We did mobilize the tissue intraperitoneally away from the posterior fascia. The defect was approximately 3.5 cm in diameter. We did excise some of the sac. A piece of coated polypropylene mesh was obtained. This was a C-Qur mesh. It was trimmed to approximately 9.5 cm and then using #1 Ethibond, it was secured in 8 sites around the mesh with the mesh placed retrofascial. The coated part of the mesh was toward the bowel, polypropylene was toward the fascia. At this point, the remaining sac was closed over the site using 2-0 plain suture. The area was irrigated with antibiotic solution. A 15 round Frankie-Madsen drain placed into the subcutaneous space, secured to the skin using 3-0 nylon suture. Subcutaneous tissue reapproximated using 2-0 plain suture, then the skin reapproximated using both martínez and 4-0 nylon. The patient was transferred to Recovery Room in stable condition. My assistant dean of students helped with prepping, draping, repair of the hernia and closure of the wound. I attest to the content of the Intraoperative Record and any orders documented therein. Any exception s are noted below.
--- NOTE | 2019-08-03 09:04 | Anesthesiology Progress Note ---
Date of Service August 03, 2019 Anesthesia Post Procedure Vital Signs Vital Signs: Temp Pulse Pulse Resp BP BP Pulse Ox 08/03/19 08:42 36.0 C L 64 64 H 115/84 96 08/03/19 06:06 37.4 C 74 20 157/99 H 94 Pain Intensity Bilateral Abdomen: Pain Intensity: 1 Transfer of Care Handoff Completed per policy Notes Mental Status: alert / awake / arousable and participated in evaluation Patient Amnestic to Procedure: Yes Nausea / Vomiting: adequately controlled Pain: adequately controlled Airway Patency, RR, SpO2: stable & adequate BP & HR: stable & adequate Hydration State: stable & adequate Anesthetic Complications: no major complications apparent
[2019-08-03] MEDS ORDERED: SODIUM CHLORIDE 0.9% 1000ML 1,000 ML IV SCH (10:10)
[2019-08-03] MEDS ORDERED: HYDROmorphone INJ 0.5 MG/0.5 ML SYR IV PRN (10:10)
[2019-08-03] MEDS ORDERED: HYDROmorphone INJ 1 MG/ML SYRINGE IV PRN (10:10)
[2019-08-03] MEDS ORDERED: HYDROCODONE/ACETAMOPHEN 5/325MG TAB PO PRN ×2 (10:10)
[2019-08-03] MEDS ORDERED: ACETAMINOPHEN 500 MG TAB PO PRN (10:21)
[2019-08-03 10:41] LABS: Basophils # (auto) 0.01 K/uL (0-0.2); Basophils % (auto) 0.1 %; Eosinophils # (auto) 0.02 K/uL (0-0.5); Eosinophils % (auto) 0.2 %; Hematocrit (blood only) 43.1 % (42-52); Hemoglobin 14.6 g/dL (14.0-18.0); Immature Granulocytes # (auto) 0.03 K/uL (0.00-0.02); Immature Granulocytes % (auto) 0.3 %; Lymphocytes # (auto) 1.13 K/uL (1.2-3.4); Lymphocytes % (auto) 12.8 %; Mean Corpuscular Hemoglobin 30.7 pg (25-34); Mean Corpuscular Hgb Conc 33.9 g/dL (32-36); Mean Corpuscular Volume 90.7 fL (80-100); Mean Platelet Volume 8.9 fL (7.4-10.4); Monocytes # (auto) 0.17 K/uL (0.11-0.59); Monocytes % (auto) 1.9 %; Neutrophils % (auto) 84.7 %; Platelet Count 222 K/uL (130-400); RDW Coefficient of Variation 12.9 % (11.5-14.5); RDW Standard Deviation 42.6 fL (36.4-46.3); Red Blood Count 4.75 M/uL (4.7-6.1); White Blood Count 8.86 K/uL (4.8-10.8)
[2019-08-03 11:11] LABS: Albumin Level 3.4 gm/dl (3.4-5.0); BUN Creatinine Ratio 18.2 (10-20); Calcium 8.9 mg/dl (8.5-10.1); Creatinine Clr Calc Pharmacy 91.2 ml/min; Est GFR (African American) 100.7; Est GFR (Non-African American) 86.9; Magnesium 1.7 mg/dl (1.8-2.4); Potassium 3.5 mmol/L (3.5-5.1)
[2019-08-03 11:14] LABS: Bilirubin,Total 0.9 mg/dl (0.2-1); Globulin 3.3 gm/dl (2.5-4.0); Phosphorus 3.3 mg/dl (2.5-4.9); Total Protein 6.7 gm/dl (6.4-8.2)
--- NOTE | 2019-08-03 11:42 | Hospitalist Consultation ---
Date of Consultation August 03, 2019 Assessment & Plan (1) Incisional hernia: Status post recurrent incisional hernia repair performed by Dr. Gonzalez 08/03/19 Pain and constipation management as per surgery (reviewed) (2) Benign essential hypertension: Continue quinapril and hydrochlorothiazide with hold parameters, if systolic blood pressure less than 110. Quinapril can be switched as per hospital formulary unless this patient has this medication with him (3) Benign prostatic hypertrophy: Acute prior history of this. Currently Dejesus catheter in place per surgery. On no current medications for this and no reported lower obstructive urinary symptoms prior to surgery. (4) DVT prophylaxis: As per surgical management with heparin 5000 units twice daily Thank you for the consult. We will review the patient tomorrow, as long as he is stable we would likely sign off at that time. History of Present Illness Reason for Consultation: Medical Management Requesting Physician: Dr Gonzalez Attending Physician: Oscar Gonzalez MD, [facility] History of Present Illness Kyler Lu is a 73 year old male admission for elective recurrent incisional hernia repair performed by Dr Gonzalez on 08/03/2019. Prior history of ventral hernia repair in September 2018. Medicine is consulted for medical management. When seen patient was under the effects of pain medication. He denies any chest pain or shortness of breath. Orientated x3. He reports getting constipation due to opiates with a background of IBS in the past. Prescription medications for hypertension which he reports is under control. He has no history of heart attacks or strokes in the past. Allergies Allergy/AdvReac Type Severity Reaction Status Date / Time Iodinated Contrast Media Allergy Severe SWELLING Verified 08/03/19 05:59 [Iodinated Contrast- Oral to head and IV Dye] Home Medications Home Medications Medication Instructions Recorded Confirmed Type Metamucil 1 tbsp PO QAM 09/18/18 08/03/19 History acetaminophen 1,000 mg PO Q6H PRN 09/18/18 08/03/19 History ascorbic acid (vitamin C) [Vitamin 500 mg PO QAM 09/18/18 08/03/19 History C] cholecalciferol (vitamin D3) 2,000 unit PO QDD 09/18/18 08/03/19 History [Vitamin D3] docusate sodium [Stool Softener] 100 mg PO QAM 09/18/18 08/03/19 History docusate sodium [Stool Softener] 200 mg PO HS 09/18/18 08/03/19 History vitamin E 400 unit PO QAM 09/18/18 08/03/19 History dicyclomine 10 mg capsule 10 mg PO QID PRN 7 Days #28 cap 07/02/19 08/03/19 Rx Carotomax 1 tab PO QPM 07/27/19 08/03/19 History [id number]-[id number]-6-[id number]-qmf-ufseorq-ast 1 cap PO QPM 07/27/19 08/03/19 History [krill oil] hydrochlorothiazide 50 mg PO QAM 08/03/19 08/03/19 History quinapril 40 mg PO HS 08/03/19 08/03/19 History Patient History Medical History (Updated 08/03/19 @ 12:06 by Nils Hoffman MD) Arthritis (Acute) Chronic knee pain (Acute) Constipation (Acute) Diverticulosis of colon (Inactive) Elevated prostate specific antigen (PSA) (Inactive) Enlarged prostate with lower urinary tract symptoms (LUTS) (Inactive) History of diverticulitis History of kidney stones History of prostate cancer Hx of irritable bowel syndrome Hx of migraines Hypertension Incisional hernia (Resolved) Knee effusion (Inactive) Osteoarthritis Prostate cancer (Resolved) Prostatitis (Inactive) Skin benign neoplasm (Inactive) Transaminitis (Inactive) Urinary incontinence (Inactive) Surgical History (Updated 08/03/19 @ 09:58 by Kinga Glaser RN) H/O elbow surgery Right History of carpal tunnel release B/L History of cholecystectomy 09/14/14: MAC #3, ETT #8.0, HiLo Ora, Grade 2 View History of colonoscopy History of cystoscopy History of incision and drainage Right Hand History of incisional hernia repair (10/06/18) Laparoscopic Incisional Hernia Repair with mesh, Open Ventral Hernia Repair Dr. Gonzalez 10/06/18 History of incisional hernia repair (08/03/19) Incisional hernia repair with C-Qur mesh. Dr. Gonzalez 08/03/19 History of repair of rotator cuff Right History of tooth extraction History of total shoulder replacement Right 09/14/16: MAC #3, Hi Lo Oral, HiLo Oral Hi/Lo Oral, Grade 2 View. Hx of prostatectomy 10/23/17: MAC #4, ETT #8, HiLo Oral, Grade 2 View Family History Father , age 89 "old age" Dementia Myocardial infarction Family history of diabetes mellitus Mother Cancer Family/Other Prostate cancer Self Other No family history of adverse response to anesthesia Denies family history of Ovarian cancer Breast cancer Colorectal cancer Social History Preferred Language: [place] Communication Ability: Effective Visual Impairment: No Limitations Plate Printer Required: No Beliefs That Will Affect Care: None marital status: marital status details: 3 children Current Living Situation: Spouse current occupation: [employer] Other Information That Helps Us Care for You: No Feels Safe at Home: Yes Safety Concerns: Feels Safe At This Time Smoking Status: Former smoker Tobacco Type: cigarettes and pipe ; Cigarettes Per Day: smoked < 1 year ; Do You Dip or Chew Tobacco: No (Mar 23, 1989 quit) ; Smoking End Date: quit in teenage years ; Second Hand Exposure: No ; Tobacco Cessation Education Requested by Patient: No Hx Alcohol Use: No Hx Substance Use: No Seatbelt Use: always Sunscreen Use: Yes Review of Systems Review of Systems: All systems reviewed & are unremarkable except as noted in HPI & below Physical Exam Constitutional: WD/WN, vitals as above + obese Eyes: + anicteric sclerae; normal pupil size ENMT: external ear and nose normal, oropharynx normal Neck: trachea midline, no thyromegaly Respiratory: normal respiratory effort, lungs clear to auscultation (Anteriorly) Cardiovascular: RRR, no murmur, no edema Gastrointestinal (Abdomen): Inspection/Auscultation: + abdomen abnormal to inspection (Abdominal binder in place therefore not fully examined) Musculoskeletal: no cyanosis or clubbing, extremities motor strength 5/5 Skin: no rashes, warm and dry Neurologic: moves all extremities and awake; no focal motor deficits (Grossly normal) and not confused Speech / Cognition: normal speech Motor/Sensory: no tremor (Resting) Psychiatric: A+Ox3, euthymic affect Results & Data Results & Data ([facility]) Vital Signs (Past 12 Hours) Vital Signs Temp Pulse Pulse Resp BP BP Pulse Ox 08/03/19 11:10 36.5 C 57 L 16 119/72 95 08/03/19 10:40 54 L 16 113/71 95 08/03/19 09:55 36.4 C L 52 L 16 107/68 98 08/03/19 09:45 60 16 105/61 97 08/03/19 09:30 36.2 C L 52 L 14 103/67 94 08/03/19 09:20 45 L 16 105/63 94 08/03/19 09:10 50 L 12 111/75 94 08/03/19 09:00 56 L 20 118/77 96 08/03/19 08:50 59 L 14 120/78 97 08/03/19 08:42 36.0 C L 64 14 115/84 96 08/03/19 06:06 37.4 C 74 20 157/99 H 94 Laboratory Results Preoperative labs reviewed and unremarkable Magnesium level 1.7, no specific treatment required for this and he will be taking milk of magnesia twice daily as prescribed by surgery Diagnostic Findings CT SCAN OF THE ABDOMEN AND PELVIS WITHOUT IV CONTRAST IMPRESSION: 1. There is postoperative change consistent with previous ventral hernia repair. 2. There is a small ventral hernia located just above the hernia mesh which contains a nonobstructed segment of small bowel. 3. Loops of small bowel are matted deep to the hernia mesh, likely related to adhesions. 4. No bowel obstruction is identified. 5. Moderate to advanced colonic diverticulosis without CT evidence of acute diverticulitis. 6. Cardiomegaly. 7. Prominent left iliac chain lymph nodes are pathologically indeterminant. 8. Additional findings as above. PG Care Time/CCT Total # of Minutes Spent Total Time Spent with Patient: Total time spent is greater than 50% in coordination of care (as documented) at patient's floor/unit and/or counseling patient: Coding Level of Care Code 37445 Inpt Consult Level 3 Diagnoses Incisional hernia K43.2; K43.91 Obstruction and gangrene presence: without obstruction or gangrene Benign essential hypertension I10 Benign prostatic hypertrophy N40.0 Lower urinary tract symptom presence: symptoms absent DVT prophylaxis Z29.9 (1) Benign prostatic hypertrophy Lower urinary tract symptom presence: symptoms absent Qualified Code(s): N40.0 - Benign prostatic hyperplasia without lower urinary tract symptoms (2) Incisional hernia Obstruction and gangrene presence: without obstruction or gangrene Qualified Code(s): K43.2 - Incisional hernia without obstruction or gangrene; K43.91 - Incisional hernia, without obstruction or gangrene
[2019-08-03] MEDS: MAGNESIUM HYDROXIDE SUSP 30 ML UDC PO SCH ×2 (12:26→20:43)
[2019-08-03] MEDS: DOCUSATE SODIUM/SENNA 50/8.6MG TAB PO SCH ×2 (12:26→20:43)
[2019-08-03] MEDS: KETOROLAC TROMETHAMINE 15 MG/ML VIAL IV PRN ×2 (13:41→21:48)
[2019-08-03] MEDS: CEFAZOLIN 1000MG 1,000 MG/7.5 ML SYR IV SCH ×2 (14:09→22:08)
[2019-08-03] MEDS: CHOLECALCIFEROL 1,000 UNITS 25 MCG TAB PO SCH (16:02)
[2019-08-03] MEDS ORDERED: Nursing to Pharmacy Communication SCH (19:15)
[2019-08-03] MEDS: DICYCLOMINE HCL 10 MG CAP PO PRN (19:19)
[2019-08-03] MEDS ORDERED: ENALAPRIL MALEATE 10 MG TAB PO SCH (21:00)
[2019-08-03] MEDS ORDERED: [UNRECOGNIZED DRUG - OTHER] PO SCH (21:00)
[2019-08-03] MEDS: ENALAPRIL MALEATE 10 MG TAB PO SCH (21:54)
[2019-08-04] MEDS: KETOROLAC TROMETHAMINE 15 MG/ML VIAL IV PRN ×3 (03:53→23:44)
[2019-08-04] MEDS: CEFAZOLIN 1000MG 1,000 MG/7.5 ML SYR IV SCH ×3 (06:05→23:35)
--- NOTE | 2019-08-04 08:04 | Anesthesiology Progress Note ---
Date of Service August 04, 2019 Anesthesia Post Procedure Vital Signs Vital Signs: Temp Pulse Pulse Pulse Resp BP BP 08/04/19 07:06 36.8 C 54 L 16 134/79 08/04/19 02:54 37.2 C 56 L 16 116/75 08/03/19 22:59 36.7 C 56 L 18 144/78 H 08/03/19 21:54 59 L 147/89 H 08/03/19 20:20 51 L 123/76 08/03/19 19:20 36.7 C 60 20 147/75 H 08/03/19 15:19 36.7 C 73 17 131/87 08/03/19 13:00 36.5 C 74 16 125/77 08/03/19 11:58 60 16 110/73 08/03/19 11:10 36.5 C 57 L 16 119/72 08/03/19 10:40 54 L 16 113/71 08/03/19 09:55 36.4 C L 52 L 16 107/68 08/03/19 09:45 60 16 105/61 08/03/19 09:30 36.2 C L 52 L 14 103/67 08/03/19 09:20 45 L 16 105/63 08/03/19 09:10 50 L 12 111/75 08/03/19 09:00 56 L 20 118/77 08/03/19 08:50 59 L 14 120/78 08/03/19 08:42 36.0 C L 64 14 115/84 Pulse Ox 08/04/19 07:06 95 08/04/19 02:54 94 08/03/19 22:59 92 08/03/19 21:54 08/03/19 20:20 95 08/03/19 19:20 08/03/19 15:19 93 08/03/19 13:00 95 08/03/19 11:58 95 08/03/19 11:10 95 08/03/19 10:40 95 08/03/19 09:55 98 08/03/19 09:45 97 08/03/19 09:30 94 08/03/19 09:20 94 08/03/19 09:10 94 08/03/19 09:00 96 08/03/19 08:50 97 08/03/19 08:42 96 Pain Intensity Bilateral Abdomen: Pain Intensity: 3 Notes Mental Status: alert / awake / arousable and participated in evaluation Patient Amnestic to Procedure: Yes Nausea / Vomiting: adequately controlled Pain: adequately controlled Airway Patency, RR, SpO2: stable & adequate BP & HR: stable & adequate Hydration State: stable & adequate Anesthetic Complications: no major complications apparent and Pt Satisfied with anesthetic care
[2019-08-04] MEDS ORDERED: MAGNESIUM OXIDE 400 MG TAB PO ONE (08:20)
[2019-08-04] MEDS ORDERED: hydroCHLOROthiazide 25 MG TAB PO SCH (09:00)
[2019-08-04] MEDS: hydroCHLOROthiazide 25 MG TAB PO SCH (09:26)
[2019-08-04] MEDS: MAGNESIUM HYDROXIDE SUSP 30 ML UDC PO SCH ×2 (09:26→20:29)
[2019-08-04] MEDS: POLYETHYLENE (MIRALAX) 17 GM PACK PO SCH (09:27)
[2019-08-04] MEDS: DOCUSATE SODIUM/SENNA 50/8.6MG TAB PO SCH ×2 (09:27→20:30)
[2019-08-04] MEDS: HEPARIN SOD 5,000 UNIT/0.5 ML VIAL SQ SCH ×2 (09:32→20:31)
--- NOTE | 2019-08-04 11:22 | Hospitalist Progress Note ---
Date of Service August 04, 2019 Assessment & Plan (1) Incisional hernia: Status post recurrent incisional hernia repair performed by Dr. Gonzalez 08/03/19 Pain and constipation management as per surgery (reviewed) (2) Benign essential hypertension: Continue quinapril (enalapril on formulary here) and hydrochlorothiazide BPs acceptable (3) Benign prostatic hypertrophy: Acute prior history of this. No dysuria or hesitancy On no current medications for this and no reported lower obstructive urinary symptoms prior to surgery. (4) Hypomagnesemia: Mag 1.7, replaced orally (5) DVT prophylaxis: As per surgical management with heparin 5000 units twice daily Thank you for the consult. Medicine will sign off at this time. Please call with any questions Admission and Anticipated Discharge Date Admission Date: August 03, 2019 Subjective Mr. Lu is feeling well, tolerating diet, not too much pain. Having loose bowel movements. No other complaints. ROS Constitutional: no chills, aches, sweats or fever Respiratory: no sob,cough, sputum, or wheezing Cardiac: no chest pain, palpitations, edema, orthopnea or lightheadedness GI: no abdominal pain, nausea, vomiting, diarrhea or constipation : no dysuria or hesitancy Extremities: no joint pain or weakness Skin: no rash All other systems reviewed and negative Physical Exam Physical Exam: General: no distress Eyes: normal inspection, PERLL Respiratory: chest non tender, clear to auscultation, normal breath sounds, no respiratory distress, no accessory muscle use Cardiac: regular rate and rhythm, no rub or gallop, no murmur, no edema, no jvd GI/: active bowel sounds, no abd pain or tenderness, soft, non distended Extremities: normal range of motion, normal strength, non tender Neuro/Psych: alert and oriented x 3, normal mood and affect Skin: normal color, dry Results & Data Results & Data ([facility]) Vital Signs (Past 12 Hours) Vital Signs Temp Pulse Resp BP BP Pulse Ox 08/04/19 07:06 36.8 C 54 L 16 134/79 95 08/04/19 02:54 37.2 C 56 L 16 116/75 94 PG Care Time/CCT Total # of Minutes Spent Total Time Spent with Patient: Total time spent is greater than 50% in coordination of care (as documented) at patient's floor/unit and/or counseling patient: Coding Level of Care Code 12355 Subseq Hosp Care Lvl 2 Diagnoses Incisional hernia K43.2; K43.91 Obstruction and gangrene presence: without obstruction or gangrene Benign essential hypertension I10 Benign prostatic hypertrophy N40.0 Lower urinary tract symptom presence: symptoms absent Hypomagnesemia E83.42 DVT prophylaxis Z29.9 (1) Incisional hernia Obstruction and gangrene presence: without obstruction or gangrene Qualified Code(s): K43.2 - Incisional hernia without obstruction or gangrene; K43.91 - Incisional hernia, without obstruction or gangrene (2) Benign prostatic hypertrophy Lower urinary tract symptom presence: symptoms absent Qualified Code(s): N40.0 - Benign prostatic hyperplasia without lower urinary tract symptoms
[2019-08-04] MEDS: TRIAMCINOLONE ACET NASAL SPRAY 10.8ML BTL NAE SCH (12:35)
--- NOTE | 2019-08-04 13:32 | Surgery Progress Note ---
Date of Service August 04, 2019 Assessment & Plan (1) S/P laparoscopic hernia repair: had bms incision stable drain in place monitor GI function cont IV atbx Results & Data Vital Signs (Past 12 Hours) Vital Signs Temp Pulse Resp BP BP Pulse Ox 08/04/19 07:06 36.8 C 54 L 16 134/79 95 08/04/19 02:54 37.2 C 56 L 16 116/75 94 PG Care Time/CCT Total # of Minutes Spent Total Time Spent with Patient: Total time spent is greater than 50% in coordination of care (as documented) at patient's floor/unit and/or counseling patient: Coding Level of Care Code None Diagnoses S/P laparoscopic hernia repair Z98.890; Z87.19
[2019-08-04] MEDS: CHOLECALCIFEROL 1,000 UNITS 25 MCG TAB PO SCH (16:31)
[2019-08-04] MEDS: ENALAPRIL MALEATE 10 MG TAB PO SCH (20:30)
[2019-08-05] MEDS: CEFAZOLIN 1000MG 1,000 MG/7.5 ML SYR IV SCH ×3 (06:09→22:09)
[2019-08-05] MEDS ORDERED: CALCIUM CARBONATE 500 MG CHEWABLE TAB PO PRN (06:29)
[2019-08-05] MEDS ORDERED: ALUMINUM/MAGNESIUM/SIMETH (MAALOX MAX) 30 ML UDC PO PRN (06:29)
[2019-08-05] MEDS ORDERED: MINERAL OIL 30 ML UDC PO ONE ×2 (07:25→19:20)
--- NOTE | 2019-08-05 07:29 | Surgery Progress Note ---
Date of Service August 05, 2019 Assessment & Plan (1) History of incisional hernia repair: some pain- no bm since yesterday but ++ flatus drain- serous abd- min distention , some bs add dose of min oil cont diet walk- not ready for d/c yet Results & Data Vital Signs (Past 12 Hours) Vital Signs Temp Pulse Resp BP Pulse Ox 08/04/19 22:54 37.1 C 60 16 148/86 H 94 PG Care Time/CCT Total # of Minutes Spent Total Time Spent with Patient: Total time spent is greater than 50% in coordination of care (as documented) at patient's floor/unit and/or counseling patient: Coding Level of Care Code None Diagnoses History of incisional hernia repair Z98.890; Z87.19
[2019-08-05] MEDS: hydroCHLOROthiazide 25 MG TAB PO SCH (08:22)
[2019-08-05] MEDS: TRIAMCINOLONE ACET NASAL SPRAY 10.8ML BTL NAE SCH (08:22)
[2019-08-05] MEDS: DOCUSATE SODIUM/SENNA 50/8.6MG TAB PO SCH ×2 (08:22→20:20)
[2019-08-05] MEDS: POLYETHYLENE (MIRALAX) 17 GM PACK PO SCH (08:23)
[2019-08-05] MEDS: HEPARIN SOD 5,000 UNIT/0.5 ML VIAL SQ SCH ×2 (08:23→21:12)
[2019-08-05] MEDS: DICYCLOMINE HCL 10 MG CAP PO PRN (08:56)
[2019-08-05] MEDS: KETOROLAC TROMETHAMINE 15 MG/ML VIAL IV PRN (12:10)
[2019-08-05] MEDS: CHOLECALCIFEROL 1,000 UNITS 25 MCG TAB PO SCH (16:32)
[2019-08-05] MEDS: MAGNESIUM HYDROXIDE SUSP 30 ML UDC PO SCH (20:17)
[2019-08-05] MEDS: ENALAPRIL MALEATE 10 MG TAB PO SCH (21:10)
[2019-08-06] MEDS: CEFAZOLIN 1000MG 1,000 MG/7.5 ML SYR IV SCH (06:30)
[2019-08-06] MEDS: POLYETHYLENE (MIRALAX) 17 GM PACK PO SCH (08:41)
[2019-08-06] MEDS: MAGNESIUM HYDROXIDE SUSP 30 ML UDC PO SCH (08:41)
[2019-08-06] MEDS: DOCUSATE SODIUM/SENNA 50/8.6MG TAB PO SCH (08:41)
[2019-08-06] MEDS: TRIAMCINOLONE ACET NASAL SPRAY 10.8ML BTL NAE SCH (08:41)
[2019-08-06] MEDS: HEPARIN SOD 5,000 UNIT/0.5 ML VIAL SQ SCH (08:41)
[2019-08-06] MEDS: hydroCHLOROthiazide 25 MG TAB PO SCH (08:41)
--- NOTE | 2019-08-07 10:37 | Discharge Summary (DS) ---
PRINCIPAL DIAGNOSIS: Incisional hernia. PROCEDURES: The patient underwent open incisional hernia repair. HISTORY OF PRESENT ILLNESS: The patient is a 73-year-old male with incisional hernia above a prior repair. HOSPITAL COURSE: He was brought into the hospital on 08/03/2019 where he underwent open incisional hernia repair with mesh with drain placement. He had tolerated the procedure well. Postoperatively, he had some delay in his GI function, but did progress in both diet and activity and was felt stable for discharge on 08/06/2019. The drain was removed. He is to return to the surgical clinic within 1 week.
== END 2019-08-06 10:37 | disposition home or self-care (01) ==
LOC: ASU 05:32 → INTOOBSV 08:28 → 3N 08:28

== ENCOUNTER 2019-11-06 06:44 | Inpatient (IN) ==
--- NOTE | 2019-09-29 15:54 | PAT Medication Instructions ---
Medication Instructions Date of Service September 29, 2019 Home Medications Medication Instructions Recorded quinapril 40 mg tablet 80 mg PO HS #180 tab 09/29/19 Metamucil 1 tbsp PO QAM acetaminophen 1,000 mg PO Q6H PRN ascorbic acid (vitamin C) 1,000 mg PO QAM cholecalciferol (vitamin D3) 2,000 unit PO QDD docusate sodium [Stool Softener] 100 mg PO QAM vitamin E 400 unit PO QAM Carotomax 1 tab PO QPM [id number]-ast [krill oil] 1 cap PO QPM hydrochlorothiazide 50 mg PO QAM acetaminophen [Tylenol Arthritis] 1,300 mg PO Q12H PRN triamcinolone acetonide [Nasacort] 2 spray INTRANASAL QAM quinapril 40 mg tablet 80 mg PO HS STOP taking 2 weeks before surgery vitamin E 400 unit PO QAM Carotomax 1 tab PO QPM [id number]-[id number]-ast [krill oil] 1 cap PO QPM DO NOT take the morning of surgery Metamucil 1 tbsp PO QAM ascorbic acid (vitamin C) 1,000 mg PO QAM docusate sodium [Stool Softener] 100 mg PO QAM hydrochlorothiazide 50 mg PO QAM Take morning of surgery OTHERWISE NOTHING TO EAT OR DRINK AFTER MIDNIGHT: triamcinolone acetonide [Nasacort] 2 spray INTRANASAL QAM Take evening before surgery cholecalciferol (vitamin D3) 2,000 unit PO QDD acetaminophen [Tylenol Arthritis] 1,300 mg PO Q12H PRN (if needed) quinapril 40 mg tablet 80 mg PO HS Other Notes If you have any questions please call us at [phone] or [phone] or [phone] or [phone]
--- NOTE | 2019-09-30 11:16 | Anesthesiology Consultation ---
Date of Service September 30, 2019 Assessment & Plan (1) Encounter for pre-operative examination: Chart Review Chart Review: Acceptable Risk for Surgery (pending preop Covid testing ) and Patient seen in Pre Admission Testing Per PAT appt on 09/30/19, pt resides and works in [facility]. Wears mask, uses good hand hygiene and socially distances. Does travel occasionally due to job- works as [employer]- limited contact. Educated patient to follow up with surgeon's office regarding Covid testing. Educated on importance of self quarantining, social distancing and wearing mask in public both for the patient and household contacts. Open incisional hernia repair 08/03/19= Done under GA with Grade 1 view with MAC #3. ETT 7.5. No anesthesia issues noted per record Teaching & Discussion Pre-Anesthesia Teaching/Discussion Notes: Instructed NPO after midnight before surgery,except medications with 15 cc of water. Medication instructions provided according to the PAT guidelines. History Surgery Operation Date: 11/06/19 07:00 Proposed Procedures p Left Total Shoulder Arthroplasty - Jsoh Pulliam DO Height/Weight Height: 5 ft 10 in Weight: 101.2 kg Allergies Allergy/AdvReac Type Severity Reaction Status Date / Time Iodinated Contrast Media Allergy Severe SWELLING Verified 09/23/19 08:36 [Iodinated Contrast- Oral to head and IV Dye] Medications Home Medications Medication Instructions Recorded Confirmed Last Taken Metamucil 1 tbsp PO QAM 09/18/18 09/30/19 08/02/19 09:00 acetaminophen 1,000 mg PO Q6H PRN 09/18/18 09/30/19 2 Days Ago ~08/01/19 ascorbic acid (vitamin C) [Vitamin 1,000 mg PO QAM 09/18/18 09/30/19 1 Week Ago C] ~07/27/19 cholecalciferol (vitamin D3) 2,000 unit PO QDD 09/18/18 09/30/19 08/01/19 18:00 [Vitamin D3] docusate sodium [Stool Softener] 100 mg PO QAM 09/18/18 09/30/19 08/02/19 22:00 vitamin E 400 unit PO QAM 09/18/18 09/30/19 2 Days Ago ~08/01/19 Carotomax 1 tab PO QPM 07/27/19 09/30/19 3 Days Ago ~07/31/19 [id number]-kuoxevd-ast 1 cap PO QPM 07/27/19 09/30/19 1 Week Ago [krill oil] ~07/27/19 hydrochlorothiazide 50 mg PO QAM 08/03/19 09/30/19 08/03/19 05:00 acetaminophen [Tylenol Arthritis] 1,300 mg PO Q12H PRN 09/23/19 09/30/19 Unknown triamcinolone acetonide [Nasacort] 2 spray INTRANASAL QAM 09/23/19 09/30/19 Unknown quinapril 40 mg tablet 80 mg PO HS #180 tab 09/29/19 09/30/19 Unknown Past Medical History Medical History History of kidney stones No current issues Hx of irritable bowel syndrome Stable Hx of migraines No recent issues. Hypertension Osteoarthritis Prostate cancer 2018- s/p prostatectomy Exercise / Class Metabolic Activity II 4-5 Yardwork/Stairs/Walk up hill (one flight of stairs- no chest pain or SOB) Past Family History Family History Father , age 89 "old age" Dementia Myocardial infarction Family history of diabetes mellitus Mother Cancer Family/Other Prostate cancer Self Other No family history of adverse response to anesthesia Denies family history of Ovarian cancer Breast cancer Colorectal cancer Past Surgical History Surgical History H/O elbow surgery Right History of carpal tunnel release B/L History of cholecystectomy 09/14/14: MAC #3, ETT #8.0, HiLo Ora, Grade 2 View History of colonoscopy History of cystoscopy History of esophagogastroduodenoscopy (EGD) History of incision and drainage Right Hand History of incisional hernia repair (10/06/18) Laparoscopic Incisional Hernia Repair with mesh, Open Ventral Hernia Repair Dr. Gonzalez 10/06/18 History of incisional hernia repair (08/03/19) Incisional hernia repair with C-Qur mesh. Dr. Gonzalez 08/03/19 History of repair of rotator cuff Right History of tooth extraction History of total shoulder replacement Right 09/14/16: MAC #3, Hi Lo Oral, HiLo Oral Hi/Lo Oral, Grade 2 View. Hx of prostatectomy 10/23/17: MAC #4, ETT #8, HiLo Oral, Grade 2 View Past Anesthesia History No Hx of Anesthesia Complications and No Family Hx of Anesthesia Complications History of PONV No Hx of PONV and Hx of Motion Sickness (dizziness with laying on back and ob jects close to face ) Social History Smoking Status: Former smoker tobacco type: cigarettes and pipe Smoking cigarettes per day: smoked < 1 year Do You Dip or Chew Tobacco: No (Former- quit 1989) Smoking End Date: SMOKED LIGHTLY A TEEN Hx Alcohol Use: No Hx Substance Use: No substance use type: does not use Review of Systems Occ snoring- no witnessed apnea- no hx of sleep study Patient denies chest pain, shortness of breath, dyspnea on exertion, reflux, cough, wheezing, palpitations. No hx of seizures, stroke, [place]. No hx of blood clots or blood transfusions Physical Exam Vital Signs VITALS BP 153/97 P 59 TEMP 98.3 SP02 96% RESP 16 Constitutional no acute distress ENMT Mouth: no TMJ clicking Thyromental Distance: > or= 3.5 Finger Breadths (3.5) Mallampati Class: I Missing molars Crowns to molars Neck + short neck and + thick neck; neck extension not limited Respiratory normal respiratory effort; no respiratory distress Auscultation: lungs clear to auscultation bilaterally; no wheezes Cardiovascular Rate/Rhythm: regular rate and regular rhythm Heart Sounds: no murmur Vessels: no carotid bruit Musculoskeletal Spine: + pain with cervical ROM (minimal ) Neurologic moves all extremities Psychiatric Orientation: alert Testing Laboratory Results 09/30/19 11:40 09/30/19 11:40 PT 10.9 Seconds (9.0-12.0) 09/30/19 11:40 INR 1.0 (0.9-1.1) 09/30/19 11:40 APTT 27.9 Seconds (21.0-31.0) 09/30/19 11:40 Blood Type B Positive 09/30/19 11:40 Antibody Screen NEGATIVE 09/30/19 11:40 Electrocardiogram Date: 09/30/19 Findings: + SB @ (56) Left axis deviation. RBBB. No significant change from Oct 15, 2018 per cardio Chest X-Ray Date: 09/30/19 Findings: + NAD There is aortic tortuosity. There is bibasilar subsegmental atelectasis.
--- NOTE | 2019-09-30 12:29 | XRay Report ---
XR chest Pre-admission PA/Lat CLINICAL HISTORY: Preoperative chest COMPARISON STUDY: October 07, 2017 FINDINGS: The heart is normal in size. There is aortic tortuosity. There is no failure. There is no f ocal pulmonary consolidation. There is bibasilar subsegmental atelectasis. IMPRESSION: Subsegmental basilar atelectatic changes. No active disease in the chest ACT 112: Negative or not required by law. Electronically signed by: Ang Worthy M.D. 09/30/2019 12:28 PM
--- NOTE | 2019-09-30 12:40 | Electrocardiogram Report ---
Test Reason : Blood Pressure : / mmHG Vent. Rate : 056 BPM Atrial Rate : 056 BPM P-R Int : 168 ms QRS Dur : 142 ms QT Int : 460 ms P-R-T Axes : 051 -37 038 degrees QTc Int : 443 ms Sinus bradycardia Left axis deviation Right bundle branch block Abnormal ECG When compared with ECG of 15-OCT-2018 07:19, No significant change was found Confirmed by Andrew Gandara ([id number]) on 09/30/2019 12:40:01 PM Referred By: Josh Pulliam Confirmed By:Andrew Gandara
[2019-09-30 12:49] LABS: Basophils # (auto) 0.02 K/uL (0-0.2); Basophils % (auto) 0.2 %; Eosinophils # (auto) 0.15 K/uL (0-0.5); Eosinophils % (auto) 1.9 %; Hematocrit (blood only) 42.6 % (42-52); Hemoglobin 14.6 g/dL (14.0-18.0); Immature Granulocytes # (auto) 0.04 K/uL (0.00-0.02); Immature Granulocytes % (auto) 0.5 %; Lymphocytes # (auto) 2.51 K/uL (1.2-3.4); Lymphocytes % (auto) 31.3 %; Mean Corpuscular Hemoglobin 31.1 pg (25-34); Mean Corpuscular Hgb Conc 34.3 g/dL (32-36); Mean Corpuscular Volume 90.6 fL (80-100); Mean Platelet Volume 9.7 fL (7.4-10.4); Monocytes # (auto) 0.77 K/uL (0.11-0.59); Monocytes % (auto) 9.6 %; Neutrophils # (auto) 4.52 K/uL (1.4-6.5); Neutrophils % (auto) 56.5 %; Platelet Count 249 K/uL (130-400); RDW Coefficient of Variation 12.9 % (11.5-14.5); RDW Standard Deviation 42.5 fL (36.4-46.3); White Blood Count 8.01 K/uL (4.8-10.8)
[2019-09-30 13:04] LABS: Partial Thromboplastin Time 27.9 Seconds (21.0-31.0); Prothrombin Time 10.9 Seconds (9.0-12.0)
[2019-09-30 13:20] LABS: BUN Creatinine Ratio 22.6 (10-20); Calcium 9.6 mg/dl (8.5-10.1); Creatinine Clr Calc Pharmacy 91.2 ml/min; Est GFR (African American) 99.7; Potassium 4.1 mmol/L (3.5-5.1)
--- NOTE | 2019-11-05 08:02 | History & Physical Report ---
Date of Service November 05, 2019 Assessment & Plan (1) Osteoarthritis of left shoulder: We will proceed with a left shoulder replacement. Postoperatively he will be placed in a sling and kept overnight in the hospital for postoperative medical management. He plans to use [facility] and [facility] upon discharge. Present on Admission?: Yes History of Present Illness Chief Complaint: Primary osteoarthritis of the left shoulder Primary Care Provider: Alyssa Perera MD Slick is a pleasant 73-year-old male who we did a right total shoulder on 3 years ago. He is done extremely well with that. Unfortunately he has been dealing with a lot of left shoulder pain. I have been treating him for osteoarthritis of the left shoulder. After failing extensive conservative treatment, including multiple injections, he has elected to proceed with a left total shoulder arthroplasty. Allergies Allergy/AdvReac Type Severity Reaction Status Date / Time Iodinated Contrast Media Allergy Severe SWELLING Verified 09/23/19 08:36 [Iodinated Contrast- Oral to head and IV Dye] Home Medications Home Medications Medication Instructions Recorded Confirmed Type Metamucil 1 tbsp PO QAM 09/18/18 09/30/19 History acetaminophen 1,000 mg PO Q6H PRN 09/18/18 09/30/19 History ascorbic acid (vitamin C) [Vitamin 1,000 mg PO QAM 09/18/18 09/30/19 History C] cholecalciferol (vitamin D3) 2,000 unit PO QDD 09/18/18 09/30/19 History [Vitamin D3] docusate sodium [Stool Softener] 100 mg PO QAM 09/18/18 09/30/19 History vitamin E 400 unit PO QAM 09/18/18 09/30/19 History Carotomax 1 tab PO QPM 07/27/19 09/30/19 History kgbsj-[id number]-tud-zwjxmlo-ast 1 cap PO QPM 07/27/19 09/30/19 History [krill oil] hydrochlorothiazide 50 mg PO QAM 08/03/19 09/30/19 History acetaminophen [Tylenol Arthritis] 1,300 mg PO Q12H PRN 09/23/19 09/30/19 History triamcinolone acetonide [Nasacort] 2 spray INTRANASAL QAM 09/23/19 09/30/19 History quinapril 40 mg tablet 80 mg PO HS #180 tab 09/29/19 09/30/19 Rx Past Med/Surg History Medical History History of kidney stones No current issues Hx of irritable bowel syndrome Stable Hx of migraines No recent issues. Hypertension Osteoarthritis Prostate cancer 2018- s/p prostatectomy Surgical History H/O elbow surgery Right History of carpal tunnel release B/L History of cholecystectomy 09/14/14: MAC #3, ETT #8.0, HiLo Ora, Grade 2 View History of colonoscopy History of cystoscopy History of esophagogastroduodenoscopy (EGD) History of incision and drainage Right Hand History of incisional hernia repair (10/06/18) Laparoscopic Incisional Hernia Repair with mesh, Open Ventral Hernia Repair Dr. Gonzalez 10/06/18 History of incisional hernia repair (08/03/19) Incisional hernia repair with C-Qur mesh. Dr. Gonzalez 08/03/19 History of repair of rotator cuff Right History of tooth extraction History of total shoulder replacement Right 09/14/16: MAC #3, Hi Lo Oral, HiLo Oral Hi/Lo Oral, Grade 2 View. Hx of prostatectomy 10/23/17: MAC #4, ETT #8, HiLo Oral, Grade 2 View Family History Father , age 89 "old age" Dementia Myocardial infarction Family history of diabetes mellitus Mother Cancer Family/Other Prostate cancer Self Other No family history of adverse response to anesthesia Denies family history of Ovarian cancer Breast cancer Colorectal cancer Social History Smoking Status: Former smoker Cigarettes Per Day: smoked < 1 year; Second Hand Exposure: No; Hx Alcohol Use: No Hx Substance Use: No Preferred Language: Zimbabwean Communication Ability: Effective Visual Impairment: No Limitations Unit Clerk Required: No Beliefs That Will Affect Care: None marital status: marital status details: 3 children Current Living Situation: Spouse current occupation: [employer] Feels Safe at Home: Yes Seatbelt Use: always Sunscreen Use: Yes Assistive Devices: Glasses Review of Systems Review of Systems: All systems reviewed & are unremarkable except as noted in HPI & below Physical Exam Constitutional: WD/WN, vitals as above Eyes: PERRL, conjunctivae normal, anicteric sclerae ENMT: external ear and nose normal, oropharynx normal Neck: trachea midline, no thyromegaly Respiratory: normal respiratory effort Cardiovascular: RRR, no murmur, no edema Gastrointestinal (Abdomen): normal bowel sounds, soft, nontender, no hepatosplenomegaly Musculoskeletal: Physical examination of the left shoulder reveals decreased range of motion and crepitis throughout. There is good strength with full can testing and external rotation. There is tenderness palpation along the anterior glenohumeral joint line. The right upper extremity is neurovascularly intact. Psychiatric: A+Ox3, euthymic affect Results & Data Results & Data ([facility]) Diagnostic Findings Radiographs of the left shoulder show osteoarthritis of the glenohumeral joint. There is joint space narrowing, osteophyte formation, and [id number] articulation. PG Care Time/CCT Total # of Minutes Spent Total Time Spent with Patient: Total time spent is greater than 50% in coordination of care (as documented) at patient's floor/unit and/or counseling patient: Coding Level of Care Code 05192 Initial Inpt Care Lvl 2 Diagnoses Osteoarthritis of left shoulder M19.012
[~2019-11-06 06:44] MED LIST changes: +ACETAMINOPHEN 500 MG TAB PO SCH; +BUPIVACAINE 0.5 % 5 MG/1 ML PF 10ML VIAL ONE; +FAMOTIDINE 20 MG TAB PO SCH; +GABAPENTIN 300 MG CAP PO SCH; +LR 60ML/HR IV SCH; +ROPIVACAINE 0.5% HCL/PF 150 MG, BUPIVACAINE 0.5% MPF 30 ML, EPINEPHrine 30MG/30ML (OR U... INSTIL SCH; +TRANEXAMIC ACID 1,000 MG **IV Intra-op IV SCH; +TRANEXAMIC ACID 1,000 MG **IV Pre-op IV SCH; +dexAMETHasone 4 MG TAB PO SCH
[2019-11-06] MEDS ORDERED: fentaNYL citrate 100 MCG/2 ML VIAL ONE (06:48)
[2019-11-06] MEDS ORDERED: MIDAZOLAM HCL 1 MG/ML 2ML VIAL ONE ×2 (06:48)
--- NOTE | 2019-11-06 06:52 | History & Physical Bridge Note ---
Date of Service November 06, 2019 History & Physical Bridge Note I have examined the patient, reviewed the History & Physical and in the interval since the performance of the History & Physical I have noted the following changes of clinical significance: no changes noted
[2019-11-06] MEDS ORDERED: DEXAMETHASONE SOD INJ 4 MG/ML VIAL ONE (07:15)
[2019-11-06] MEDS ORDERED: PROPOFOL IV EMULSION 10 MG/ML 20 ML VIAL IV ONE (07:15)
[2019-11-06] MEDS ORDERED: ATROPINE SULFATE 0.1 MG/ML 10ML SYR IV PRN (07:51)
[2019-11-06] MEDS ORDERED: ONDANSETRON INJ 2 MG/ML 2 ML VIAL IV PRN ×2 (07:51→11:33)
[2019-11-06] MEDS ORDERED: ePHEDrine sulfate 50 MG/ML AMP IV PRN (07:51)
[2019-11-06] MEDS ORDERED: ORTHO JOINT ANESTHETIC ONE (07:53)
[2019-11-06] MEDS ORDERED: GLYCOPYRROLATE 0.2 MG/ML VIAL ONE (09:09)
[2019-11-06] MEDS ORDERED: NEOSTIGMINE METHYLSULFATE 5 MG/5 ML SYR ONE (09:09)
[2019-11-06] MEDS ORDERED: ePHEDrine sulfate 50 MG/ML SYR ONE (09:09)
[2019-11-06] MEDS ORDERED: ONDANSETRON INJ 2 MG/ML 2 ML VIAL ONE (09:09)
[2019-11-06] MEDS ORDERED: ROCURONIUM BROMIDE 10 MG/ML 5 ML VIAL IV ONE (09:21)
--- NOTE | 2019-11-06 09:41 | Operative Report ---
PG Post Operative Report Pre & Post Diagnosis Operation Date: 11/06/19 08:30 Pre-Op Diagnosis: Degenerative Joint Disease, Left Shoulder with tendinopathy of the long head of the biceps tendon Post-Op Diagnosis: Degenerative Joint Disease, Left Shoulder with tendinopathy of the long head of the biceps tendon I identified the patient and participated in the time-out.: Yes Procedure Operation Date: 11/06/19 08:30 Actual Procedures p Left Total Shoulder Arthroplasty with open biceps tenodesis as a distinct and separate procedure (modifier 59) (Left) - Josh Pulliam DO Surgeon Josh Pulliam DO Green Chain Puller Josh Montaño PAC Estimated Blood Loss 200 Findings Consistent with Post-Op Diagnosis Specimens Left humeral head Complications none Disposition Disposition: Recovery Room Indications Slick is a pleasant 73-year-old male who presented my office with chronic increasing left shoulder pain. X-rays and clinical examination were diagnostic for advanced osteoarthritis of the left shoulder. After failing conservative treatment, he has elected proceed with a left total shoulder arthroplasty. He does have a history of a right total shoulder arthroplasty done in 2017 and has done very well with that. Description of Procedure A CPT code modifier 59: The long head of the biceps tendon was enlarged and inflamed consistent with tendinopathy. A tenodesis was opted. This was a separ ate and distinct portion of the procedure. For these reasons, a CPT code modifier 59 will be added to this case. Implants used: I used a [employer] Comprehensive total shoulder arthroplasty system with a size 11 press fit micro humeral stem, a size 46 x 18 eccentric humeral head, and a 4 glenoid with a trabecular metal peg. The glenoid was cemented in place with Palacos G cement. Slick arrived at [facility] for the above procedure. He was seen in the preoperative holding area and the operative extremity was identified and signed. He was given a preoperative antibiotic, TXA, and an interscalene nerve block. He was taken back to the operating room, laid on table in supine position, and put under general anesthesia. He was then put into the beachchair position. The shoulder was then prepped and draped in sterile fashion. A timeout was done and the patient and the operative extremity was properly identified. A deltopectoral approach was used. Dissection was taken down through the fascia and the deltoid was retracted laterally and the conjoined tendon was retracted medially. The anterior shoulder was exposed. The biceps groove was opened up and the biceps tendon was examined extensively. The biceps tendon demonstrated enlargement and inflammatory changes consistent with longstanding inflammation in the context of osteoarthritis. The long head of the biceps tendon was then tenodesed to the upper border of the pectoralis major. This was a separate and distinct portion of the procedure. The subscapularis was then released off the lesser tuberosity with a centimeter of cuff tissue remaining. The inferior capsule was released and the humeral head was dislocated. The rotator cuff was inspected and intact. A canal finding reamer was sent down the center of the humeral canal. Sequential reaming up to a size 11 reamer was done. Offset reamer a proximal humeral resection guide was placed. The proximal humerus was resected at 135 of inclination and 30 of retroversion. Inferior osteophytes were then removed and the glenoid was exposed. Time was spent doing an appropriate labral release. The glenoid measured to be a size 4. A [employer] Signature One guide was then attached onto the anterior rim of the glenoid. A 3.2 mm Steinmann pin was then placed in the total shoulder arthroplasty hole. The glenoid was then reamed with a propeller reamer. The central post cutter was then used to prepare for the central boss. The cannulated peripheral peg drill guide was then placed and 3 peg holes were drilled. The final size 4 glenoid was then cemented in place with Palacos G cement. Surrounding soft tissues were then injected with 100 cc of an orthopedic pain control cocktail. Once cement had dried the proximal humerus was once again exposed. Sequential broaching of the humerus up to a size 11 broach was done. Off that broach a size 46 x 18 eccentric humeral head was trialed. The shoulder was then reduced, brought through a full range of motion, and felt to be stable. The shoulder was then dislocated and the broach was removed. The final size 11 micro humeral stem implant was then impacted into place. A size 46 x 18 eccentric humeral head was then impacted onto the humeral stem. The shoulder was then reduced and once again brought through a full range of motion and felt to be stable. The subscapularis was then tenodesed back to the lesser tuberosity with transosseous FiberWire sutures and side to side sutures with the arm in 45 of external rotation. 2 sutures were placed in the lateral rotator interval. A dilute betadyne lavage was then done for 3 minutes. The joint was then irrigated with normal saline solution. Hemostasis was obtained. The interval was closed with 2-0 Vicryl suture. The skin was closed with 2-0 Vicryl and martínez. A Silverlon dressing was placed and the arm was rested in a regular arm sling. He was then extubated and transferred to a hospital bed. He was taken to the postanesthesia care unit in stable condition. He tolerated the procedure well. Josh Montaño PA-C, was present for the entire procedure. He was critical for patient positioning, prepping, draping, retraction exposure, wound closure and application of sterile dressing. I attest to the content of the Intraoperative Record and any orders documented therein. Any exceptions are noted below.
[2019-11-06] MEDS: fentaNYL citrate 100 MCG/2 ML VIAL IV PRN ×6 (10:10→10:35)
--- NOTE | 2019-11-06 10:41 | XRay Report ---
XR shoulder LT min 2V routine HISTORY: 73 years-old Male Post shoulder surgery left shoulder total joint arthroplasty COMPARISON: Chest radiographs 09/30/2019 TECHNIQUE: 2 views of the left shoulder FINDINGS: Left shoulder arthroplasty demonstrates satisfactory alignment. Moderate degeneration of the AC joint . Overlying skin martínez are present along with expected postoperative soft tissue swelling and deep tissue air. No acute fracture or on expected radiopaque foreign body. IMPRESSION: Left shoulder arthroplasty with expected postoperative changes. ACT 112: Negative or not required by law. The above report was generated using voice recognition software. It may contain grammatical, syntax o r spelling errors. Electronically signed by: Miguel Angel Bush M.D. 11/06/2019 10:40 AM
--- NOTE | 2019-11-06 10:48 | Anesthesiology Progress Note ---
Date of Service November 06, 2019 Anesthesia Post Procedure Vital Signs Vital Signs: Temp Pulse Pulse Resp BP BP Pulse Ox 11/06/19 10:35 50 L 18 123/75 92 11/06/19 10:25 62 15 127/94 95 11/06/19 10:15 52 L 13 121/84 92 11/06/19 10:05 96.8 F L 82 16 133/84 94 11/06/19 07:59 64 18 129/94 94 11/06/19 07:17 98.2 F 79 16 153/99 H 95 Pain Intensity Left Shoulder: Pain Intensity: 6 Transfer of Care Handoff Completed per policy Notes Mental Status: alert / awake / arousable and participated in evaluation Patient Amnestic to Procedure: Yes Nausea / Vomiting: adequately controlled Pain: adequately controlled Airway Patency, RR, SpO2: stable & adequate BP & HR: stable & adequate Hydration State: stable & adequate Anesthetic Complications: no major complications apparent and Pt Satisfied with anesthetic care
[2019-11-06] MEDS ORDERED: bisacodyL 10 MG SUPP PR PRN (11:33)
[2019-11-06] MEDS ORDERED: OXYCODONE HCL IR 5 MG TAB (IMMEDIATE RELEASE) PO PRN (11:33)
[2019-11-06] MEDS ORDERED: MAGNESIUM HYDROXIDE SUSP 30 ML UDC PO PRN (11:33)
[2019-11-06] MEDS ORDERED: HYDROmorphone INJ 0.5 MG/0.5 ML SYR IV PRN (11:33)
[2019-11-06] MEDS ORDERED: NALOXONE HCL 0.4 MG/1 ML VIAL/CARP IV PRN (11:33)
[2019-11-06] MEDS ORDERED: METOCLOPRAMIDE HCL INJ 5 MG/ML 2 ML VIAL IV PRN (11:33)
[2019-11-06] MEDS: SODIUM CHLORIDE 0.9% 1000ML 1,000 ML IV SCH ×2 (12:26→22:14)
[2019-11-06] MEDS: KETOROLAC TROMETHAMINE 15 MG/ML VIAL IV SCH ×2 (13:16→17:29)
[2019-11-06] MEDS: ACETAMINOPHEN 500 MG TAB PO SCH ×2 (15:04→22:14)
[2019-11-06] MEDS: CEFAZOLIN 2000MG 2,000 MG/15 ML SYR IV SCH (15:24)
[2019-11-06] MEDS: DOCUSATE SODIUM 100 MG CAP PO SCH (19:48)
[2019-11-06] MEDS ORDERED: SENNA 8.6 MG TAB PO SCH (21:00)
[2019-11-06] MEDS ORDERED: ENALAPRIL MALEATE 10 MG TAB PO SCH (21:00)
[2019-11-07] MEDS: KETOROLAC TROMETHAMINE 15 MG/ML VIAL IV SCH ×3 (00:34→11:53)
[2019-11-07] MEDS: CEFAZOLIN 2000MG 2,000 MG/15 ML SYR IV SCH (00:34)
[2019-11-07] MEDS: ACETAMINOPHEN 500 MG TAB PO SCH (05:56)
--- NOTE | 2019-11-07 07:46 | Orthopedic Progress Note ---
Date of Service November 07, 2019 Assessment & Plan (1) Status post replacement of left shoulder joint: Overall he is doing very well. He is not having much pain in the left shoulder. He will be seen by physical therapy this morning for ambulation and range of motion exercises. He can be discharged home later today. He will follow-up with orthopedics in 2 weeks. Present on Admission?: No Admission and Anticipated Discharge Date Admission Date: November 06, 2019 Subjective Slick was seen and examined at bedside this morning. Overall he is doing very well. Is not having much pain in the left shoulder. He was able to get some sleep last night. He has no complaints. Physical Exam Musculoskeletal: On physical exam of the left shoulder, the Silverlon dressing has some bloody drainage but is not leaking. His radial, median, and ulnar nerves are checked and intact his wrist. His axillary nerve was not checked yet. He is wearing his sling as instructed. Results & Data ([facility]) Vital Signs (Past 12 Hours) Vital Signs Temp Pulse Resp BP Pulse Ox 11/07/19 04:00 36.5 C 67 18 125/66 93 11/06/19 23:22 36.4 C L 59 L 19 117/71 94 Diagnostic Findings Postoperative x-rays of the left shoulder show the prosthesis to be in anatomic alignment without any evidence of fracture, dislocation, or loosening. PG Care Time/CCT Total # of Minutes Spent Total Time Spent with Patient: Total time spent is greater than 50% in coordination of care (as documented) at patient's floor/unit and/or counseling patient: Coding Level of Care Code None Diagnoses Status post replacement of left shoulder joint Z96.612
--- NOTE | 2019-11-07 07:48 | Discharge Summary ---
Date of Service November 07, 2019 Admission HPI Per Admitting Provider Slick is a pleasant 73-year-old male who we did a right total shoulder on 3 years ago. He is done extremely well with that. Unfortunately he has been dealing with a lot of left shoulder pain. I have been treating him for osteoarthritis of the left shoulder. After failing extensive conservative treatment, including multiple injections, he has elected to proceed with a left total shoulder arthroplasty. Principal Diagnosis Left shoulder replacement Discharge Data Allergies Allergy/AdvReac Type Severity Reaction Status Date / Time Iodinated Contrast Media Allergy Severe SWELLING Verified 11/06/19 07:02 [Iodinated Contrast- Oral to head and IV Dye] Consultations 11/06/19 11:33 Consult Case Management - Discharge Planning Routine Procedures Performed Operation Date: 11/06/19 08:30 Actual Procedures p Left Total Shoulder Arthroplasty(Left) - Josh Pulliam DO Ordered Studies 11/06/19 05:00 US - OR guided needle placemen Routine Hospital Course (1) Status post replacement of left shoulder joint: On November 06, 2019 Slick arrived at [facility] and underwent a left shoulder replacement without complication. He had a general anesthetic and a left interscalene nerve block. Postoperatively he was placed in a sling and transferred to the general orthopedic floors. His hospital course was uneventful. On postop day #1 his H&H was stable and his pain was well controlled. He was able to participate well with physical therapy doing ambulation and range of motion exercises. He was then discharged home. He will follow-up with orthopedics in 2 weeks. Total Time Total Time Spent Total Time Spent (In Minutes): 20 Discharge Plan Discharge Items Patient Disposition: Home - Home Health Services Reason For Visit: Degenerative Joint Disease, Left Shoulder Discharge Diagnosis: Left shoulder replacement Activity: As commented below Non-emergency contact: Surgeon Call non-emergency contact if: your wound has increased redness and your wound has increased drainage Follow-up/Referrals: Alyssa Perera MD [Primary Care Provider] - Diet: Regular Addtl Attending Provider Instructions: Activity and Therapy Recommendations: * If you are using [facility] then therapy will be provided at your home until they feel you have accomplished all of your goals. * If you are using [facility] then Physical Therapy will be provided until they feel you are ready to start Outpatient Physical Therapy. * If you are not using home therapy then Outpatient Physical Therapy should start about 3-5 days from your day of surgery. Therapy will last about 8-12 weeks * Wear your sling for 3 weeks, unless otherwise instructed. You may remove your sling to shower and to dress, but otherwise, you should be in your sling at all times, including while sleeping * The shoulder replacement is very stable and you can use your hand while in the sling * You were shown a series of exercises in the hospital. Do these exercises daily including the exercises you were shown in physical therapy. Medications: * Narcotic You will likely be sent home from the hospital with a prescription for the narcotic pain medication that worked best throughout your stay. * Other medications may be prescribed for specific circumstances. If you have any questions, please call the office at . * Resume previous home medications unless otherwise instructed Dressing Care: Leave the Silverlon dressing in place for 7 days. After 7 days you may remove the dressing. If the incision is not draining then you may leave the martínez open to air. If there is a little bit of drainage or if the martínez are getting stuck on your clothing then cover the incision with a dry dressing. The martínez will be removed at your 2 week follow-up appointment. Showering: You may shower with the Silverlon dressing in place. Do not let the shower spray hit the dressing directly. Pat the Silverlon dressing dry. If the dressing becomes wet underneath, then simply remove the dressing. Keep the incision dry until you are 7 days out from the day of surgery. After 7 days you may remove the Silverlon dressing and shower with the martínez exposed. Let soapy water run over the martínez and pat them dry. Do not scrub or soak the incision. Things To Watch For: * Drainage from the incision site that occurs more than one week after your surgery. * Increased redness at the incision site. * Fever above 102 degrees Fahrenheit. * Unusual chest pain or shortness of breath. * Call [facility] at with any of the above problems Follow-Up Visit: Follow-up with Dr. Pulliam's PA (Josh Montaño) 2-3 weeks after your day of surgery. He will remove your martínez and answer any questions. If you have any additional questions or concerns, Dr Pulliam is usually in the office at the same time and will be available An appointment was probably scheduled when you signed-up for surgery in the office. If you have any questions call More detailed instructions as well as Frequently Asked Questions were provided in a folder by our office when you signed-up for surgery. Please review these instructions when you get home. If you have any further questions or concerns, please feel free to call the office at [phone] Pending Studies at Discharge: No Stand-Alone Forms: [facility], Smoking Cessation Medications and DC Order Prescriptions: New oxycodone 5 mg Tablet 5 mg PO Q4H PRN (Reason: pain) Qty: 20 RF: 0 Continued quinapril 40 mg tablet 80 mg PO HS Qty: 180 RF: 0 ascorbic acid (vitamin C) [Vitamin C] 500 mg Tablet 1,000 mg PO QAM RF: 0 acetaminophen 500 mg Capsule 1,000 mg PO Q6H PRN (Reason: Pain) RF: 0 docusate sodium [Stool Softener] 100 mg Tablet 100 mg PO QAM RF: 0 vitamin E 400 unit Capsule 400 unit PO QAM RF: 0 cholecalciferol (vitamin D3) [Vitamin D3] 2,000 unit Tablet 2,000 unit PO QDD RF: 0 Metamucil 3.4 gram/5.4 gram Powder 1 tbsp PO QAM RF: 0 [id number]-vy-[id number]-irg-opbiiie-ast [krill oil] 1,565-241-34-80 mg Capsule 1 cap PO QPM RF: 0 Carotomax 1 tab PO QPM RF: 0 hydrochlorothiazide 50 mg tablet 50 mg PO QAM RF: 0 acetaminophen [Tylenol Arthritis] 650 mg Tablet Extended Release 1,300 mg PO Q12H PRN (Reason: Pain) RF: 0 triamcinolone acetonide [Nasacort] 55 mcg Aerosol,[place] 2 spray INTRANASAL QAM RF: 0 Tylenol PM 25-500 mg-mg/mL Solution See Rx Instructions .ROUTE .COMPLEX RF: 0 Discharge Orders: Discharge Order (Routine); Ordered 11/07/19 Ordered By: Josh Pulliam Admission Data Admit Date/Time: 11/06/19 10:03 Attending Provider: Josh Pulliam Admit Provider: Josh Pulliam Primary Care Provider: Alyssa Perera Coding Level of Care Code D/C Day Management <30 mins Diagnoses Status post replacement of left shoulder joint Z96.612
[2019-11-07 07:58] LABS: Basophils # (auto) 0.01 K/uL (0-0.2); Basophils % (auto) 0.1 %; Eosinophils # (auto) 0.07 K/uL (0-0.5); Eosinophils % (auto) 0.4 %; Hematocrit (blood only) 40.2 % (42-52); Hemoglobin 13.8 g/dL (14.0-18.0); Immature Granulocytes # (auto) 0.06 K/uL (0.00-0.02); Immature Granulocytes % (auto) 0.4 %; Lymphocytes # (auto) 2.43 K/uL (1.2-3.4); Lymphocytes % (auto) 14.2 %; Mean Corpuscular Hemoglobin 30.9 pg (25-34); Mean Corpuscular Hgb Conc 34.3 g/dL (32-36); Mean Corpuscular Volume 90.1 fL (80-100); Mean Platelet Volume 9.4 fL (7.4-10.4); Monocytes # (auto) 1.18 K/uL (0.11-0.59); Monocytes % (auto) 6.9 %; Neutrophils # (auto) 13.39 K/uL (1.4-6.5); Platelet Count 236 K/uL (130-400); RDW Coefficient of Variation 12.6 % (11.5-14.5); RDW Standard Deviation 41.1 fL (36.4-46.3); Red Blood Count 4.46 M/uL (4.7-6.1); White Blood Count 17.14 K/uL (4.8-10.8)
[2019-11-07] MEDS ORDERED: dexAMETHasone 4 MG TAB PO SCH (08:00)
[2019-11-07] MEDS: DOCUSATE SODIUM 100 MG CAP PO SCH (08:14)
[2019-11-07 08:30] LABS: Creatinine Clr Calc Pharmacy 67.2 ml/min; Est GFR (African American) 72.8; Est GFR (Non-African American) 62.8; Potassium 3.5 mmol/L (3.5-5.1)
[2019-11-07] MEDS ORDERED: hydroCHLOROthiazide 25 MG TAB PO SCH (09:00)
[2019-11-07] MEDS ORDERED: TRIAMCINOLONE ACET NASAL SPRAY 10.8ML BTL SCH (09:00)
[2019-11-07] MEDS ORDERED: MULTIVITAMIN TAB PO SCH (09:00)
== END 2019-11-07 12:19 | disposition home health service (06) | DRG 483 ==
LOC: ASU 06:44 → 3E 10:03
DX: I10 Essential (primary) hypertension; Z87.891 Personal history of nicotine dependence; M19.012 Primary osteoarthritis, left shoulder

== ENCOUNTER 2022-07-16 07:39 | Observation (INO) ==
--- NOTE | 2022-06-15 13:56 | PAT Medication Instructions ---
Medication Instructions Date of Service June 15, 2022 Home Medications Medication Instructions Recorded dicyclomine 10 mg capsule 10 mg PO TID PRN abdominal pain. 05/23/22 #30 caps hydrochlorothiazide 50 mg tablet 50 mg PO QAM #90 tabs 05/24/22 ascorbic acid (vitamin C) 500 mg tablet (Vitamin C) 1,000 mg PO QAM cholecalciferol (vitamin D3) 50 mcg (2,000 unit) tablet (Vitamin D3) 2,000 unit PO QPM docusate sodium 100 mg tablet (Stool Softener) 100 mg PO UD psyllium husk 3.4 gram/5.4 gram oral powder (Metamucil) 1 tbsp PO DAILY PRN Constipation Carotomax 1 tab PO QPM triamcinolone acetonide 55 mcg nasal spray aerosol (Nasacort) 2 spray intranasal QAM dicyclomine 10 mg capsule 10 mg PO TID PRN abdominal pain hydrochlorothiazide 50 mg tablet 50 mg PO QAM amlodipine 5 mg tablet 5 mg PO DAILY lisinopril 40 mg tablet 40 mg PO HS Continue as directed amlodipine 5 mg tablet 5 mg PO DAILY STOP taking 2 weeks before surgery Carotomax 1 tab PO QPM DO NOT take the morning of surgery ascorbic acid (vitamin C) 500 mg tablet (Vitamin C) 1,000 mg PO QAM psyllium husk 3.4 gram/5.4 gram oral powder (Metamucil) 1 tbsp PO DAILY PRN Constipation docusate sodium 100 mg tablet (Stool Softener) 100 mg PO UD dicyclomine 10 mg capsule 10 mg PO TID PRN abdominal pain hydrochlorothiazide 50 mg tablet 50 mg PO QAM Take morning of surgery With a small sip of water, OTHERWISE NOTHING TO EAT OR DRINK AFTER MIDNIGHT: triamcinolone acetonide 55 mcg nasal spray aerosol (Nasacort) 2 spray intranasal QAM Take evening before surgery cholecalciferol (vitamin D3) 50 mcg (2,000 unit) tablet (Vitamin D3) 2,000 unit PO QPM docusate sodium 100 mg tablet (Stool Softener) 100 mg PO UD psyllium husk 3.4 gram/5.4 gram oral powder (Metamucil) 1 tbsp PO DAILY PRN Constipation (if needed) dicyclomine 10 mg capsule 10 mg PO TID PRN abdominal pain lisinopril 40 mg tablet 40 mg PO HS Other Notes If you have any questions please call us at [phone] or [phone] or [phone] or [phone]
--- NOTE | 2022-06-20 10:41 | Anesthesiology Consultation ---
Date of Service June 20, 2022 Assessment & Plan (1) Encounter for pre-operative examination: Chart Review Chart Review: Pending: Refer to Additional Notes / Consult section (pending cardio clearance ) and Patient seen in Pre Admission Testing - Will need cardio clearance due to abnormal preop EKG - will set up with [facility] Pt declines PO pain medications and NSAIDs due to IBS- does tolerate IV pain meds - Due to age- patient is NOT an OPJ candidate Per PAT appt on 06/20/22, patient denies any recent travel or large group activities. Pt is NOT vaccinated for Covid. Will leave to surgeon's discretion if preop Covid testing needed. Educated on importance of using Covid precautions one week prior to surgery Right cubital tunnel release 03/03/20= Done under [facility] with LMA #4. Atraumatic insertion x 1 Teaching & Discussion Pre-Anesthesia Teaching/Discussion Notes: Instructed NPO after midnight before surgery,except medications with 15 cc of water. Medication instructions provided according to the PAT guidelines. History Surgery Operation Date: 07/16/22 10:30 Proposed Procedures p Right Total Knee Arthroplasty - Josh Pulliam DO Height/Weight Height: 5 ft 10 in Weight: 103 kg Allergies Allergy/AdvReac Type Severity Reaction Status Date / Time Iodinated Contrast Media Allergy Severe SWELLING Verified 06/19/22 10:52 [Iodinated Contrast- Oral to head and IV Dye] Medications Home Medications Medication Instructions Recorded Confirmed Last Taken ascorbic acid (vitamin C) 500 mg 1,000 mg PO QAM 09/18/18 06/19/22 08/20/21 tablet (Vitamin C) cholecalciferol (vitamin D3) 50 2,000 unit PO QPM 09/18/18 06/19/22 08/20/21 mcg (2,000 unit) tablet (Vitamin D3) docusate sodium 100 mg tablet 100 mg PO UD 09/18/18 06/19/22 08/20/21 (Stool Softener) psyllium husk 3.4 gram/5.4 gram 1 tbsp PO DAILY PRN Constipation 09/18/18 06/13/22 08/20/21 oral powder (Metamucil) Carotomax 1 tab PO QPM 07/27/19 06/19/22 08/20/21 triamcinolone acetonide 55 mcg 2 spray intranasal QAM 09/23/19 06/19/22 08/21/21 05:30 nasal spray aerosol (Nasacort) dicyclomine 10 mg capsule 10 mg PO TID PRN abdominal pain. 05/23/22 06/19/22 Unknown #30 caps hydrochlorothiazide 50 mg tablet 50 mg PO QAM #90 tabs 05/24/22 06/19/22 Unknown amlodipine 5 mg tablet 5 mg PO DAILY 06/13/22 06/19/22 Unknown lisinopril 40 mg tablet 40 mg PO HS 06/13/22 06/19/22 Unknown polyethylene glycol 3350 17 17 g PO DAILY 06/20/22 06/20/22 Unknown gram/dose oral powder (Miralax) Past Medical History Medical History (Updated 06/20/22 @ 11:10 by Kamla Perez PA-C) History of COVID-19 09/2020>RESOLVED History of prostate cancer S/p prostatectomy No chemo or XRT Hypertension IBS (irritable bowel syndrome) Constipation- recently started on Miralax - following with GI 06/21/22 Osteoarthritis Exercise / Class Metabolic Activity II 4-5 Yardwork/Stairs/Walk up hill (one flight of stairs - no chest pain or SOB ) Past Family History Family History Father , age 89 "old age" Dementia Myocardial infarction Family history of diabetes mellitus Mother Cancer Family/Other Prostate cancer Self Other No family history of adverse response to anesthesia Denies family history of Ovarian cancer Breast cancer Colorectal cancer Past Surgical History Surgical History H/O elbow surgery Right History of carpal tunnel release B/L History of cataract surgery RT/LEFT History of cholecystectomy 09/14/14: MAC #3, ETT #8.0, HiLo Ora, Grade 2 View History of colonoscopy History of cystoscopy History of esophagogastroduodenoscopy (EGD) History of incision and drainage Right Hand History of incisional hernia repair (10/06/18) Laparoscopic Incisional Hernia Repair with mesh, Open Ventral Hernia Repair Dr. Gonzalez 10/06/18 History of incisional hernia repair (08/03/19) Incisional hernia repair with C-Qur mesh. Dr. Gonzalez 08/03/19 History of repair of rotator cuff Right History of tooth extraction History of total replacement of left shoulder joint 10/2019 [facility] History of total shoulder replacement Right 09/14/16: MAC #3, Hi Lo Oral, HiLo Oral Hi/Lo Oral, Grade 2 View. Hx of prostatectomy 10/23/17: MAC #4, ETT #8, HiLo Oral, Grade 2 View S/P cubital tunnel release rt/lt Status post replacement of left shoulder joint (~10/2019) Past Anesthesia History No Hx of Anesthesia Complications and No Family Hx of Anesthesia Complications History of PONV No Hx of PONV and No Hx of Motion Sickness Social History Smoking Status: Former smoker tobacco type: cigarettes and smokeless tobacco Smoking cigarettes per day: QUIT A TEENAGER Do You Dip or Chew Tobacco: No (1989) Hx Alcohol Use: No substance use type: does not use Review of Systems Occ reflux/belching- improved with Tums Hx of snoring- no witnessed apnea - no hx of sleep study Patient denies chest pain, shortness of breath, dyspnea on exertion, cough, wheezing, palpitations. No hx of seizures, stroke, NV. No hx of blood clots or blood transfusions Physical Exam Vital Signs VITALS BP 126/80 P 71 TEMP 98.0 SP02 95% RESP 16 Constitutional no acute distress ENMT Mouth: no TMJ clicking Thyromental Distance: < 3.5 Finger Breadths (3.0) Mallampati Class: I Missing molar Cap to molar Neck neck extension not limited Respiratory normal respiratory effort; no respiratory distress Auscultation: lungs clear to auscultation bilaterally; no wheezes Cardiovascular Rate/Rhythm: regular rate and regular rhythm Heart Sounds: no murmur Vessels: no carotid bruit Musculoskeletal Spine: no pain with cervical ROM Extremities: extremities normal to inspection Psychiatric Orientation: alert Lab Results Anesthesia Preop Results Results Anesthesia Widget: WBC 7.59 K/ul (4.8-10.8) 06/20/22 Hgb 15.4 g/dl (14.0-18.0) 06/20/22 Hct 44.6 % (42.0-52.0) 06/20/22 Plt 246 K/uL (130-400) 06/20/22 Na 140 mmol/L (136-145) 06/20/22 K 4.3 mmol/L (3.5-5.1) 06/20/22 Cl 103 mmol/L (98-107) 06/20/22 CO2 31 mmol/L (21-32) 06/20/22 BUN 20 mg/dl (6-23) 06/20/22 Creat 0.95 mg/dl (0.6-1.4) 06/20/22 Glucose Level 111 mg/dl (70-99(Fasting)) H 06/20/22 PT 10.9 Seconds (9.0-12.0) 06/20/22 PTT 27.6 Seconds (21.0-31.0) 06/20/22 INR 1.0 (0.9-1.1) 06/20/22 Blood Type B Positive 06/20/22 Antibody Screen NEGATIVE 06/20/22 Testing Electrocardiogram Date: 06/20/22 NSR with sinus arrhythmia at 61bpm Left axis deviation RBBB T wave abnormality, consider lateral ischemia When compared to EKG from September 30, 2019- T wave inversion now evident in lateral leads Chest X-Ray Date: 06/20/22 Findings: + NAD Bilateral shoulder arthroplasties seen. The cardiomediastinal silhouette is normal. Bilateral lower lung atelectasis is noted. No evidence of pleural eff usion or pneumothorax. COVID-19 Risk Screen Screening Information COVID-19 Screen Date: 06/20/22 Exposure 21 Days Family/Household +COVID Last 21 Days: No Exposure 10 Days Any COVID Exposure Last 10 Days: No Symptoms Last 10 Days Experienced COVID Sx Last 10 Days: No + COVID 0-90 Days COVID + in Last 0-90 Days: No Risk Plan COVID Risk Plan: No Risk Identified Patient Education COVID Preop Screening Education Complete: Yes
[~2022-07-16 07:39] MED LIST changes: -CEFAZOLIN 2000MG 2,000 MG/15 ML SYR IV SCH; -LR 15ML/HR IV SCH; +LR 500ML BOLUS, THEN 15ML/HR IV SCH; +ORTHO JOINT MIX INFIL SCH; +ROPIVACAINE 0.5% 5 MG/ML 30 ML VIAL ONE; -ROPIVACAINE 0.5% HCL/PF 150 MG, BUPIVACAINE 0.5% MPF 30 ML, EPINEPHrine 30MG/30ML (OR U... INSTIL SCH; +ceFAZolin 2000MG 2,000 MG/15 ML SYR IV SCH
[2022-07-16] MEDS ORDERED: MIDAZOLAM HCL 1 MG/ML 2ML VIAL ONE (08:58)
[2022-07-16] MEDS ORDERED: fentaNYL citrate PF 100 MCG/2 ML VIAL ONE (08:59)
--- NOTE | 2022-07-16 09:29 | History & Physical Bridge Note ---
Date of Service July 16, 2022 History & Physical Bridge Note I have examined the patient, reviewed the History & Physical and in the interval since the performance of the History & Physical I have noted the following changes of clinical significance: no changes noted
[2022-07-16] MEDS ORDERED: ePHEDrine sulfate 50 MG/ML AMP IV PRN (09:49)
[2022-07-16] MEDS ORDERED: fentaNYL citrate PF 100 MCG/2 ML VIAL IV PRN (09:49)
[2022-07-16] MEDS ORDERED: ATROPINE SULFATE 0.1 MG/ML 10ML SYR IV PRN (09:49)
[2022-07-16] MEDS ORDERED: ONDANSETRON INJ 2 MG/ML 2 ML VIAL IV PRN ×2 (09:49→13:32)
[2022-07-16] MEDS ORDERED: ORTHO JOINT ANESTHETIC ONE (10:01)
[2022-07-16] MEDS ORDERED: PROPOFOL IV EMULSION 10 MG/ML 20 ML VIAL IV ONE ×2 (11:02→11:41)
[2022-07-16] MEDS ORDERED: ePHEDrine sulfate 50 MG/ML AMP ONE (11:03)
--- NOTE | 2022-07-16 12:06 | Operative Report ---
PG Post Operative Report Pre & Post Diagnosis Operation Date: 07/16/22 10:00 Pre-Op Diagnosis: Degenerative Joint Disease Knee Right Post-Op Diagnosis: Degenerative Joint Disease Knee Right I identified the patient and participated in the time-out.: Yes Procedure Operation Date: 07/16/22 10:00 Actual Procedures p Right Total Knee Arthroplasty(Right) - Josh Pulliam DO Surgeon Josh Pulliam DO Hide Spreader Josh Montaño PA-C Estimated Blood Loss 30 Findings Consistent with Post-Op Diagnosis Specimens Right femoral and tibial bone Description of Procedure Implants used: I used a Angie Persona total knee arthroplasty system with a size 7 standard femur, E tibia, 31 oval patella, and a size 13 medial congruent polyethylene bearing. All components were cemented in place with Biomet cement. Kyler arrived [facility] for the above procedure. He was seen in the preoperative holding area and the operative extremity was identified and signed. He was given a preoperative antibiotic, TXA, a spinal anesthetic and an adductor nerve block. He was taken back to the operating room and laid on the table in supine position. He was given basic sedation. The operative knee was then prepped and draped in sterile fashion. A timeout was done, and the patient and the operative extremity was properly identified. A midline incision was made directly over the patella. Dissection was taken down to the extensor mechanism. A midvastus arthrotomy was used. The medial retinaculum was released and the fat pad was mostly excised. The knee was flexed and the ACL, PCL, and meniscus were removed. A drill was sent down the center of the femoral canal followed by an intramedullary eli. Off that eli a distal femoral cutting block was placed. 9 mm was resected off the distal femur at 5 of valgus. A posterior referencing AP sizing guide was then placed on the distal femur. The femur measured to be a size 7. 2 drill holes were placed in 3 of external rotation. A 4-in-1 cutting block was then impacted into place. Anterior, posterior, and chamfer cuts were then made. The proximal tibia was then exposed. An external tibial alignment guide was placed. A tibial cut guide was then anchored in place and the proximal tibia was then resected. The posterior aspect of the knee was then op ened up and any additional meniscus fragments and osteophytes were removed. The tibia measured to be a size E. The tibial plate was then placed in the appropriate rotation and the tibia was drilled and punched. Trial components were then placed. I used a size 13 medial congruent polyethylene insert. The knee was brought through a full range of motion and felt to be stable. The peg holes for the femoral component were then drilled. The patella was then everted and 9 mm was resected off the posterior aspect of the patella. The patella measured to be a size 31 oval. 3 peg holes were then drilled. A trial patella was placed. The knee was once again brought through a full range of motion and felt to be stable. Trial components were then removed. The surrounding soft tissues were injected with 100 cc of an orthopedic pain control cocktail. All components were then cemented into place with Biomet cement. The final polyethylene insert was then snapped into place. Once cement was dry the tourniquet was deflated. Hemostasis was obtained. A dilute betadyne lavage was then done for 3 minutes. The joint was then irrigated with normal saline solution. The midvastus arthrotomy was then closed with #1 Vicryl suture. The skin was closed with 2-0 Vicryl, 3-0V lock suture, and martínez. A soft compressive dressing was placed. He was then transferred to a hospital bed and taken to the postanesthesia care unit in stable condition. He tolerated the procedure well. Josh Montaño PA-C, was present for the entire procedure. He was critical for patient positioning, prepping, draping, retraction exposure, wound closure and application of sterile dressing. I attest to the content of the Intraoperative Record and any orders documented therein. Any exceptions are noted below.
--- NOTE | 2022-07-16 13:10 | Anesthesiology Progress Note ---
Date of Service July 16, 2022 Anesthesia Post Procedure Vital Signs Vital Signs: Temp Pulse Pulse Resp BP Pulse Ox O2 Del Method 07/16/22 13:00 62 19 104/78 96 Nasal Cannula 07/16/22 12:50 80 19 102/65 92 Room Air 07/16/22 12:40 83 16 122/73 98 Oxymask 07/16/22 12:31 97.9 F 86 15 106/59 L 96 Oxymask 07/16/22 08:41 98.2 F 55 L 20 151/96 H 94 Room Air O2 Flow Rate 07/16/22 13:00 2 07/16/22 12:50 07/16/22 12:40 10 07/16/22 12:31 10 07/16/22 08:41 Pain Intensity Right Knee: Pain Intensity: 2 Transfer of Care Handoff Completed per policy Notes Mental Status: alert / awake / arousable and participated in evaluation Patient Amnestic to Procedure: Yes Nausea / Vomiting: adequately controlled Pain: adequately controlled Airway Patency, RR, SpO2: stable & adequate BP & HR: stable & adequate Hydration State: stable & adequate Neuraxial Anesthesia: was administered and sensory block is resolving Anesthetic Complications: no major complications apparent and Pt Satisfied with anesthetic care
--- NOTE | 2022-07-16 13:17 | XRay Report ---
TWO VIEWS RIGHT KNEE CLINICAL HISTORY: Postoperative examination. FINDINGS: AP and crosstable lateral portable views of the right knee are obtained. A right knee arthr oplasty is in near anatomic alignment. There has been undersurface remodeling of the patella. No acut e fracture is seen. There are expected postoperative changes around the knee including skin clips, so ft tissue edema, and subcutaneous gas. IMPRESSION: Expected postoperative changes status post right knee arthroplasty. No acute fracture is seen. ACT 112: Negative or not required by law. Electronically signed by: Richard Clay M.D. 07/16/2022 1:16 PM
[2022-07-16] MEDS ORDERED: oxyCODONE HCL IR 5 MG TAB (IMMEDIATE RELEASE) PO PRN (13:32)
[2022-07-16] MEDS ORDERED: bisacodyL 10 MG SUPP PR PRN (13:32)
[2022-07-16] MEDS ORDERED: NALOXONE HCL 0.4 MG/1 ML VIAL/CARP IV PRN (13:32)
[2022-07-16] MEDS ORDERED: DICYCLOMINE HCL 10 MG CAP PO PRN (13:32)
[2022-07-16] MEDS ORDERED: HYDROmorphone INJ 0.5 MG/0.5 ML SYR IV PRN (13:32)
[2022-07-16] MEDS ORDERED: MAGNESIUM HYDROXIDE SUSP 30 ML UDC PO PRN (13:32)
[2022-07-16] MEDS ORDERED: METOCLOPRAMIDE HCL INJ 5 MG/ML 2 ML VIAL IV PRN (13:32)
[2022-07-16] MEDS: SODIUM CHLORIDE 0.9% 1000ML 1,000 ML IV SCH (14:49)
[2022-07-16] MEDS: KETOROLAC TROMETHAMINE 15 MG/ML VIAL IV SCH ×2 (14:53→20:00)
[2022-07-16] MEDS: ACETAMINOPHEN 500 MG TAB PO SCH ×2 (14:53→22:12)
[2022-07-16] MEDS: ceFAZolin 2000MG 2,000 MG/15 ML SYR IV SCH (19:06)
[2022-07-16] MEDS: APIXABAN 2.5 MG TAB PO SCH (19:58)
[2022-07-16] MEDS: DOCUSATE SODIUM 100 MG CAP PO SCH (20:00)
[2022-07-16] MEDS ORDERED: POLYETHYLENE (MIRALAX) 17 GM PACK PO SCH (21:00)
[2022-07-16] MEDS ORDERED: lisinopril 40 MG TAB PO SCH (21:00)
[2022-07-16] MEDS ORDERED: SENNA 8.6 MG TAB PO SCH (21:00)
[2022-07-17] MEDS: APIXABAN 2.5 MG TAB PO SCH ×2 (03:31→07:40)
[2022-07-17] MEDS: KETOROLAC TROMETHAMINE 15 MG/ML VIAL IV SCH ×2 (03:31→10:16)
[2022-07-17] MEDS: ceFAZolin 2000MG 2,000 MG/15 ML SYR IV SCH (03:31)
[2022-07-17] MEDS: SODIUM CHLORIDE 0.9% 1000ML 1,000 ML IV SCH (06:47)
[2022-07-17] MEDS: ACETAMINOPHEN 500 MG TAB PO SCH ×2 (06:47→07:40)
--- NOTE | 2022-07-17 07:17 | Orthopedic Progress Note ---
Date of Service July 17, 2022 Assessment & Plan (1) Status post right knee replacement: Overall he is doing very well. Is not having much pain in the right knee. He will be seen by physical therapy today for ambulation and range of motion exercises. He is on Eliquis for DVT prophylaxis. He can be discharged home later today. He will follow-up with orthopedics in 2 weeks. Ami Kruger was seen and examined at bedside this morning. Overall he is doing very well. He is not having much pain in the right knee. He has been up and ambulating to the bathroom. He has no complaints.. Review of Systems All systems reviewed & are unremarkable except as noted in HPI & below. Physical Exam On physical examination of the right knee, the dressing is clean and dry. His leg is out full extension. He has active dorsiflexion plantarflexion of his right ankle. Sensation is intact throughout.. Results & Data Results & Data Laboratory Results . Diagnostic Findings Postoperative x-rays of the right knee show the prosthesis to be in anatomic alignment without any evidence of fracture, dislocation, or loosening.. PG Care Time/CCT Total # of Minutes Spent Total Time Spent with Patient: Total time spent is greater than 50% in coordination of care (as documented) at patient's floor/unit and/or counseling patient: Coding Level of Care Code 50614 Post Operative Follow-Up Diagnoses Status post right knee replacement Z96.651
--- NOTE | 2022-07-17 07:18 | Discharge Summary ---
Date of Service July 17, 2022 Principal Diagnosis Same as "Discharge Diagnosis" noted below under Discharge Instructions. Discharge Exam On physical examination of the right knee, the dressing is clean and dry. His leg is out full extension. He has active dorsiflexion plantarflexion of his right ankle. Sensation is intact throughout.. Discharge Data Procedures Performed Operation Date: 07/16/22 10:00 Actual Procedures p Right Total Knee Arthroplasty(Right) - Josh Pulliam DO Ordered Studies 07/16/22 05:00 US - OR guided needle placemen Routine Hospital Course (1) Status post right knee replacement: On July 16, 2022 Slick arrived at [facility] and underwent a right knee replaced without complication. He had a spinal anesthetic. Postoperatively he was started on Eliquis for DVT prophylaxis and transferred to the general orthopedic floors. His hospital course was uneventful. On postop day #1, his vital signs were stable and his pain was well controlled. He was able to participate well with physical therapy doing ambulation and range of motion exercises. He was then discharged home. He will follow-up with orthopedics in 2 weeks. PG Care Time/CCT Total # of Minutes Spent Total Time Spent with Patient: Total time spent is greater than 50% in coordination of care (as documented) at patient's floor/unit and/or counseling patient: Discharge Plan Discharge Items Patient Disposition: Home - Home Health Services Reason For Visit: DJD Knee Right Discharge Diagnosis: Right knee replacement Activity: Per Instructions section Non-emergency contact: Surgeon Call non-emergency contact if: your wound has increased redness and your wound has increased drainage Follow-up/Referrals: Alyssa Perera MD [Primary Care Provider] - Diet: Regular Addtl Attending Provider Instructions: Activity and Therapy Recommendations: * If you are using [facility] then therapy will be provided at your home until they feel you have accomplished all of your goals. * If you are using [facility] then Physical Therapy will be provided until they feel you are ready to start Outpatient Physical Therapy. * If you are not using home therapy then Outpatient Physical Therapy should start about 3-5 days from your day of surgery. Therapy will last about 6-10 w eeks * It is important not to put a pillow under your knee when you are relaxing or sleeping. It is just as important to make sure you are getting your knee perfectly straight as it is to regain your knee bend. * You were shown a series of exercises in the hospital. Do these exercises three times each day including the exercises you were shown in physical therapy. * Get up and walk several times each day. For the first four weeks, try not to stand or walk for more than one hour at a time. If you do stand or walk for more than one hour, you will not hurt anything, but your leg will likely swell . * As you feel comfortable, you may change from the walker or crutches to a cane and then to independent walking. Medications: * Narcotic You will likely be sent home from the hospital with a prescription for the narcotic pain medication that worked best throughout your stay. * Eliquis - take your Eliquis 2.5 mg twice a day for 2 weeks. * Other medications may be prescribed for specific circumstances. If you have any questions, please call the office at . * Resume previous home medications unless otherwise instructed TEDs/Elastic Stockings: The white elastic stockings help limit swelling and prevent blood clots from forming in your legs.~ The more you wear them, the more they work. Wear them for six weeks. Dressing Care: The dressing can be changed after physical therapy on postop day #1. Daily dry dressing changes for a few days, especially if the incision is still draining some. If the incision is not draining then you may leave the martínez open to air. If there is a little bit of drainage or if the martínez are getting stuck on your clothing then cover the incision with a dry dressing. The mratínez will be removed at your 2 week follow-up appointment. Showering: You may shower 5 days from the day of surgery as long as the incision is no longer draining. You may shower with the martínez exposed. Let soapy water run over the martínez and pat them dry. Do not scrub or soak the incision. Things To Watch For: * Drainage from the incision site that occurs more than one week after your surgery. * Increased redness at the incision site. * Fever above 102 degrees Fahrenheit. * Unusual chest pain or shortness of breath. * Call [facility] at with any of the above problems Follow-Up Visit: Follow-up with Dr. Pulliam's PA (Josh Montaño) 2-3 weeks after your day of surgery. He will remove your martínez and answer any questions. If you have any additional questions or concerns, Dr Pulliam is usually in the office at the same time and will be available An appointment was probably scheduled when you signed-up for surgery in the office. If you have any questions call Office Instructions: More detailed instructions as well as Frequently Asked Questions were provided in a folder by our office when you signed-up for surgery. Please review these instructions when you get home. If you have any further questions or concerns, please feel free to call the office at [phone] Pending Studies at Discharge: No Stand-Alone Forms: My [facility] Medications and DC Order Prescriptions: New Eliquis 2.5 mg Tablet 2.5 mg PO BID 14 Days Qty: 28 0RF oxycodone-acetaminophen 5-325 mg tablet 1 tab PO Q6H PRN (Reason: pain) Qty: 30 0RF Continued hydrochlorothiazide 50 mg tablet 50 mg PO QAM Qty: 90 0RF dicyclomine 10 mg capsule 10 mg PO TID PRN (Reason: abdominal pain.) Qty: 30 2RF ascorbic acid (vitamin C) [Vitamin C] 500 mg Tablet 1,000 mg PO QAM docusate sodium [Stool Softener] 100 mg Tablet 100 mg PO UD Patient Comments: TAKES 1 TAB QAM/2 TAB QPM cholecalciferol (vitamin D3) [Vitamin D3] 2,000 unit Tablet 2,000 unit PO QPM Rx Instructions: lunchtime Metamucil 3.4 gram/5.4 gram Powder 1 tbsp PO DAILY PRN (Reason: Constipation) Carotomax 1 tab PO QPM Patient Comments: takes at lunch time Rx Instructions: lunchtime triamcinolone acetonide [Nasacort] 55 mcg Aerosol,Crimora 2 spray INTRANASAL QAM lisinopril 40 mg tablet 40 mg PO HS amlodipine 5 mg Tablet 5 mg PO DAILY Patient Comments: TAKES AT LUNCH polyethylene glycol 3350 [Miralax] 17 gram/dose Powder 17 g PO DAILY Admission Data Admit Date/Time: 07/16/22 12:27 Attending Provider: Josh Pulliam Admit Provider: Josh Pulliam Primary Care Provider: Alyssa Perera
[2022-07-17] MEDS: DOCUSATE SODIUM 100 MG CAP PO SCH (07:39)
[2022-07-17] MEDS ORDERED: dexAMETHasone 4 MG TAB PO SCH (08:00)
[2022-07-17] MEDS ORDERED: MULTIVITAMIN TAB PO SCH (09:00)
[2022-07-17] MEDS ORDERED: FLUTICASONE PROPIONATE NA SPR 16 GM BTL SCH (09:00)
[2022-07-17] MEDS ORDERED: amLODIPine BESYLATE 5 MG TAB PO SCH (09:00)
[2022-07-17] MEDS ORDERED: hydroCHLOROthiazide 25 MG TAB PO SCH (09:00)
== END 2022-07-17 12:00 | disposition home health service (06) ==
LOC: ASU 07:39 → 3E 07:39

== ENCOUNTER 2024-12-16 09:01 | Observation (INO) ==
--- NOTE | 2024-12-16 09:41 | Emergency Department Note ---
Impression & Plan Abdominal pain, LLQ (left lower quadrant), Diverticulitis ED Provider Note HISTORY OF PRESENT ILLNESS: Patient is a 79-year-old male presenting with left lower quadrant abdominal pain. Patient reports that in early November he was diagnosed with diverticulitis and started on ciprofloxacin and metronidazole. He states that with the antibiotics his pain symptoms had improved slightly but never went away. He states that he was okay for about a week and a half, and then starting a few weeks ago he started having increasing and progressively worsening pain in his left lower quadrant. He states that the last 2 to 3 days have been the worst. He called his primary care provider to see about getting a repeat round of antibiotics, but he was referred to the emergency department for further evaluation. Patient denies any fevers or chills. He reports nausea but denies any vomiting. He reports he started having diarrhea today. He has had multiple abdominal surgeries. Denies any dysuria or hematuria. He describes the pain in the left lower quadrant as a constant pressure sensation that is occasionally sharp. ROS: as above PHYSICAL EXAM: Constitutional: Patient appears in no acute distress. HENT: Head: Normocephalic and atraumatic. Eyes: EOMI, PERRL Mouth/Throat: Mucous membranes moist. Neck: Trachea midline. Neck supple. Cardiovascular: RRR, No murmurs, rubs or gallops. Intact distal pulses. Pulmonary/Chest: No respiratory distress. Breath sounds clear and equal bilaterally. No wheezes or rales. Abdominal: Abdomen soft, no rebound or guarding. LLQ TTP Musculoskeletal: No edema, tenderness or deformity noted. Skin: Warm and dry. No rash, erythema, pallor or cyanosis Psychiatric: Appropriate mood and affect for situation. Neurological: Alert and keenly responsive. CN II-XII grossly intact, moving all extremities equally and fully. MDM: - Vitals signs showed hypertension - History obtained via patient. History as above. - Chronic conditions affecting care: HTN; IBS - Differential diagnoses include, but are not limited to: Aortic aneurysm; diverticulitis; inguinal hernia; testicular torsion; ureteral calculi; UTI; diverticular abscess - Order placed for continuous cardiac monitoring. At this time, monitor showed rate of 87 bpm with normal sinus rhythm, per my interpretation. - External medical records reviewed. Primary care visit note dated 11/11/2024 was reviewed. Patient had been seen for left lower quadrant abdominal pain. He had a CT scan without contrast obtained. CT abdomen/pelvis without contrast dated 11/12/2024 was reviewed. Patient was noted to have diverticulitis of the descending sigmoid junction. - Laboratory workup interpreted by myself showed normal WBC; normal PT/INR; stable electrolytes; normal AST/ALT; normal lipase - UA negative for infection - CT abdomen/pelvis without IV contrast (obtained without contrast secondary to patient's history of anaphylaxis to IV contrast and needing ICU admission after his last contrast bolus) showed subtle acute sigmoid diverticulitis. No bowel obstruction or abscess. - IV zosyn ordered - Discussed results with the patient. Though he has a normal white blood cell count, he does report that over the last few weeks he has never truly been pain- free in the left lower quadrant. Concerning whether he has never truly cleared his diverticulitis with outpatient antibiotics or if this is a new bout of diverticulitis in less than a month. Will admit for IV antibiotics. Patient was offered pain medication in the emergency department but he declined. - Discussion was had with field case manager about patient's case and need for admission - Hospitalist consulted for admission - Patient admitted to [facility] for further evaluation and management. ASSESSMENT AND PLAN: Diagnosis: Left lower quadrant abdominal pain; diverticulitis Plan: Admit Past Med/Surg History Problem List (Updated 12/16/24 @ 11:59 by Enid He MD) Diverticulitis (Acute) Abdominal pain, LLQ (left lower quadrant) (Acute) LLQ pain Severe left groin pain Cellulitis of left ankle Cat bite Routine health maintenance Status post right knee replacement (~07/2022) Bowel habit changes IBS (irritable bowel syndrome) Constipation- recently started on Miralax - following with GI 06/21/22 Hypertension (Chronic) Benign prostatic hypertrophy (Acute) Abnormal LFTs (Acute) Biliary and gallbladder disorder (Acute) Vitamin D deficiency (Acute) Sleep disturbances (Acute) Rosacea (Acute) Laryngopharyngeal reflux (Acute) Irritable bowel syndrome (Acute) Chronic sinusitis (Acute) Chronic prostatitis (Acute) Benign essential hypertension (Acute) Allergic reaction to contrast material (Acute) Recurrent incisional hernia DVT prophylaxis Hypomagnesemia History of incisional hernia repair Cubital tunnel syndrome on right Ulnar neuropathy at elbow of right upper extremity COVID-19 (Acute) Acute upper respiratory infection Encounter for pre-operative examination Peripheral neuropathy Mandibular pain Localized swelling, mass and lump, neck Left sided abdominal pain Change in bowel movement Status post replacement of left shoulder joint (~10/2019) History of incisional hernia repair (10/06/18) Laparoscopic Incisional Hernia Repair with mesh, Open Ventral Hernia Repair Dr. Gonzalez 10/06/18 Prostate cancer (Chronic 08/22/17) Medical History History of prostate cancer History of COVID-19 Hypertension Osteoarthritis Surgical History History of total right knee replacement (TKR) History of cataract surgery S/P cubital tunnel release History of total replacement of left shoulder joint History of esophagogastroduodenoscopy (EGD) History of incisional hernia repair (08/03/19) History of colonoscopy History of incision and drainage Hx of prostatectomy H/O elbow surgery History of carpal tunnel release History of repair of rotator cuff History of total shoulder replacement History of cystoscopy History of tooth extraction History of cholecystectomy Family History Father Dementia Myocardial infarction Family history of diabetes mellitus Mother Cancer Family/Other Prostate cancer Brother Cancer Other No family history of adverse response to anesthesia Denies family history of Ovarian cancer Breast cancer Colorectal cancer Social History Smoking Status: Never smoker Tobacco Type: Cigarettes Age Started Using Tobacco: 16; Age Quit Using Tobacco: 18; packs per day: 0.3; Cigarettes Per Day: QUIT A TEENAGER; Second Hand Exposure: No; Do You Dip or Chew Tobacco: No (1989); Hx Alcohol Use: No Hx Substance Use: No Preferred Language: Spanish Communication Ability: Effective Visual Impairment: No Limitations Hearing Ability: Normal Mosaic Tiler Required: No Beliefs That Will Affect Care: None marital status: marital status details: 3 children Current Living Situation: Spouse current occupational status: employed and retired current occupation: [employer] How many Children do You have: 3 Feels Safe at Home: Yes Childhood Exposure to Second-Hand Smoke: No Diet: regular caffeine: Yes during the past year weight has: remained stable Dental Care, Regularly: Yes Physical Activity Frequency: Daily Seatbelt Use: always Sunscreen Use: Yes Assistive Devices: Glasses Allergies Allergies Allergy/AdvReac Type Severity Reaction Status Date / Time Iodinated Contrast Media Allergy Severe SWELLING Verified 12/16/24 11:18 [Iodinated Contrast- Oral to head and IV Dye] Home Meds Home Medications Medication Instructions Recorded Confirmed ascorbic acid (vitamin C) 500 mg 1,000 mg PO QAM 09/18/18 12/16/24 tablet (Vitamin C) cholecalciferol (vitamin D3) 50 2,000 unit PO QPM 09/18/18 12/16/24 mcg (2,000 unit) tablet (Vitamin D3) Carotomax 1 tab PO QPM 07/27/19 12/16/24 lactobacillus combination no.9 4 4,000 mmu cells PO DAILY 06/14/23 12/16/24 billion cell capsule (Adult 50 Plus Probiotic) zinc sulfate 50 mg zinc (220 mg) 50 mg PO DAILY 06/14/23 12/16/24 tablet docusate sodium 100 mg capsule 100 mg PO BID 10/23/24 12/16/24 (Colace) psyllium husk 3.4 gram/5.4 gram 1 tbsp PO DAILY PRN Constipation 10/23/24 12/16/24 oral powder (Metamucil) triamcinolone acetonide 55 mcg 2 spray intranasal QAM PRN Other 10/23/24 12/16/24 nasal spray aerosol (Nasacort) Previous Rx's Medication Instructions Recorded dicyclomine 10 mg capsule 10 mg PO TID PRN abdominal pain. 05/23/22 #30 caps amoxicillin 500 mg tablet 2,000 mg (4 x 500 mg) PO ONCE PRN 02/17/24 prophylaxis #4 tabs hydrochlorothiazide 50 mg tablet 50 mg PO QAM #90 tabs 03/16/24 lisinopril 40 mg tablet 40 mg PO HS #90 tabs 03/16/24 Results & Data (ED) Vital Signs Vital Signs - 24 hr 12/16/24 09:16 12/16/24 09:41 12/16/24 10:14 Temperature 36.7 C Temperature Source Temporal Artery Scan Pulse Rate 74 Pulse Rate [Apical] 57 L Respiratory Rate 18 18 Respiratory Effort / Characteristics Non-Labored Spontaneous Non-Labored Spontaneous Respiratory Depth Normal Normal Respiratory Pattern Regular Blood Pressure 160/113 H Blood Pressure [Right Arm] 148/98 H Blood Pressure Mean 128 Blood Pressure Mean [Right Arm] 114 Pulse Oximetry 95 100 96 Oxygen Delivery Method Room Air Room Air Room Air Sepsis Recent Fever Within 48 Hours No Sepsis New/Unexplained Change in Mental Status No Sepsis Action Taken by Nursing No Action Required 12/16/24 10:19 12/16/24 11:16 Temperature Temperature Source Pulse Rate 59 L 87 Pulse Rate [Apical] Respiratory Rate 20 Respiratory Effort / Characteristics Respiratory Depth Respiratory Pattern Blood Pressure 137/91 Blood Pressure [Right Arm] Blood Pressure Mean 114 Blood Pressure Mean [Right Arm] Pulse Oximetry 95 Oxygen Delivery Method Room Air Sepsis Recent Fever Within 48 Hours Sepsis New/Unexplained Change in Mental Status Sepsis Action Taken by Nursing Laboratory Data 12/16/24 10:10 12/16/24 10:10 Lab Results 12/16/24 12/16/24 Range/Units 10:10 Unknown WBC 7.28 (4.8-10.8) K/ul RBC 4.63 L (4.70-6.10) M/uL Hgb 14.8 (14.0-18.0) g/dl Hct 41.8 L (42.0-52.0) % MCV 90.3 (80.0-100.0) fL MCH 32.0 (25.0-34.0) pg MCHC 35.4 (32.0-36.0) g/dL RDW Std Deviation 41.1 (36.4-46.3) fL RDW Coeff of Storm 12.5 (11.5-14.5) % Plt Count 205 (130-400) K/uL MPV 9.1 L (9.4-12.4) fL Immature Gran % (Auto) 0.4 % Neut % (Auto) 62.0 % Lymph % (Auto) 23.9 % [place] % (Auto) 10.2 % Eos % (Auto) 3.0 % Baso % (Auto) 0.5 % Neut # (Auto) 4.51 (1.40-6.50) K/uL Lymph # (Auto) 1.74 (1.20-3.40) K/uL [place] # (Auto) 0.74 H (0.11-0.59) K/uL Eos # (Auto) 0.22 (0.00-0.50) K/uL Baso # (Auto) 0.04 (0.00-0.20) K/uL Immature Gran # (Auto) 0.03 (0.01-0.20) K/uL PT 11.1 (9.0-12.0) Seconds INR 1.1 (0.9-1.1) Sodium 138 (136-145) mmol/L Potassium 4.0 (3.5-5.1) mmol/L Chloride 106 (98-107) mmol/L Carbon Dioxide 25 (21-32) mmol/L Anion Gap 7 (3-11) BUN 17 (6-23) mg/dl Creatinine 0.85 (0.6-1.4) mg/dl Est Cr Clr Drug Dosing 84.6 ml/min eGFR 88.39 BUN/Creatinine Ratio 20.0 (10-20) Glucose 93 (70-99(Fasting)) mg/dl Lactate 1.0 (0.4-2.0) mmol/L Calcium 9.5 (8.6-10.3) mg/dl Total Bilirubin 1.1 H (0.2-1.0) mg/dl AST 25 (13-39) U/L ALT 27 (7-52) U/L Alkaline Phosphatase 58 (34-104) U/L Total Protein 6.8 (6.0-8.3) gm/dl Albumin 4.2 (3.4-5.0) gm/dl Globulin 2.6 (2.5-4.0) gm/dl Albumin/Globulin Ratio 1.6 (0.9-2) Lipase 28 (11-82) U/L Urine Color Yellow Urine Appearance Clear (Clear) Urine pH 7.0 (4.5-7.5) Ur Specific [place] 1.016 (1.000-1.030) Urine Protein Negative (Negative) Urine Glucose (UA) Negative (Negative) Urine Ketones Negative (Negative) Urine Blood Negative (Negative) Urine Nitrite Negative (Negative) Urine Bilirubin Negative (Negative) Urine Urobilinogen Negative (Negative) Ur Leukocyte Esterase Negative (Negative) Urine Comment Administered Medications Discontinued Medications Diphenhydramine HCl (Diphenhydramine 50 Mg/Ml Vial) 50 mg IV ONE ONE Stop: 12/16/24 09:38 Last Admin: 12/16/24 10:19 Dose: Not Given Documented By: MOHINDER Piperacillin Sod/Tazobactam Sod (Zosyn) 4.5 gm in 100 mls @ 200 mls/hr IV NOW ONE; Protocol Stop: 12/16/24 11:45 Last Admin: 12/16/24 11:44 Dose: 200 mls/hr Documented By: ESTELLA Methylprednisolone (Methylprednisolone 125 Mg/2 Ml Vial) 40 mg IV NOW ONE Stop: 12/16/24 09:38 Last Admin: 12/16/24 10:19 Dose: Not Given Documented By: MOHINDER Imaging Data Radiologist's Impression: Abdomen/Pelvis CT 12/16/24 10:[address] WITHOUT CONTRAST CT DOSE: 1334.64 mGy.cm HISTORY: Acute left lower quadrant abdominal pain LLQ pain TECHNIQUE: Multiaxial CT images of the abdomen and pelvis were performed without contrast. A dose lowering technique was utilized adhering to the principles of ALARA. COMPARISON STUDY: CT abdomen and pelvis 11/12/2024, PET/CT 11/08/2022, CT abdomen and pelvis 05/24/2022 FINDINGS: Mild cardiomegaly with dilation of the imaged ascending thoracic aorta, 4.3 cm. Moderate coronary artery calcifications. No pneumatosis or pneumoperitoneum. The unenhanced spleen, pancreas and adrenal glands are unremarkable. Cholecystectomy. Hepatic steatosis. Hepatic cysts are again noted measuring up to approximately 7 cm. Mild nonspecific bilateral perinephric stranding. 3.5 cm left renal cyst. No renal or ureteral calculi or hydronephrosis. Decompressed urinary bladder. The prostate appears to be surgically absent. Atherosclerosis of the aorta with tortuosity. No lymphadenopathy. Duodenal diverticula. No bowel obstruction or bowel wall thickening. Colonic diverticulosis with subtle acute diverticulitis of the descending sigmoid junction, image 205 series 3. No abscess. Normal appendix. Postoperative changes of the anterior abdominal wall with diastases recti and possible tiny fat filled umbilical hernias. Lumbar levoscoliosis. No acute fracture. IMPRESSION: 1. Subtle acute diverticulitis of the descending sigmoid junction. 2. No bowel obstruction, pneumoperitoneum or abscess. 3. Hepatic steatosis. 4. Incidental findings as above. IMPRESSION: No significant abnormality identified within the abdomen or pelvis. ACT 112: Negative or not required by law. The above report was generated using voice recognition software. It may contain grammatical, syntax or spelling errors. Electronically signed by: Basilio Bush M.D. 12/16/2024 11:01 AM Discharge Plan Visit Data Chief Complaint: Referred by Doctor Stated Complaint: REF BY SHARRON, DIVERTICULITIS ED Provider: Enid He Discharge Problem: Abdominal pain, LLQ (left lower quadrant), Diverticulitis Patient Disposition: Admitted As Inpatient Condition: Fair Forms Stand Alone Forms: My [facility] Prescriptions Prescriptions: No Action zinc sulfate 50 mg zinc (220 mg) tablet 50 mg PO DAILY Adult 50 Plus Probiotic 4 billion cell capsule 4,000 mmu cells PO DAILY Rx Instructions: administer with a meal docusate sodium [Colace] 100 mg capsule 100 mg PO BID amoxicillin 500 mg tablet 2,000 mg PO ONCE PRN (Reason: prophylaxis) Qty: 4 2RF Rx Instructions: ONE HOUR PRIOR TO DENTAL PROCEDURE hydrochlorothiazide 50 mg tablet 50 mg PO QAM Qty: 90 3RF lisinopril 40 mg tablet 40 mg PO HS Qty: 90 3RF dicyclomine 10 mg capsule 10 mg PO TID PRN (Reason: abdominal pain.) Qty: 30 2RF ascorbic acid (vitamin C) [Vitamin C] 500 mg Tablet 1,000 mg PO QAM cholecalciferol (vitamin D3) [Vitamin D3] 2,000 unit Tablet 2,000 unit PO QPM Rx Instructions: lunchtime Metamucil 3.4 gram/5.4 gram powder 1 tbsp PO DAILY PRN (Reason: Constipation) Carotomax 1 tab PO QPM Patient Comments: takes at lunch time Rx Instructions: lunchtime triamcinolone acetonide [Nasacort] 55 mcg aerosol,spray 2 spray INTRANASAL QAM PRN (Reason: Other) Referrals Referrals: Alyssa Perera MD [Primary Care Provider] -
[2024-12-16] MEDS: diphenhydrAMINE 50 MG/ML VIAL IV ONE (10:19)
[2024-12-16 10:20] LABS: Hematocrit (blood only) 41.8 % (42.0-52.0); Hemoglobin 14.8 g/dl (14.0-18.0); Immature Granulocytes # (auto) 0.03 K/uL (0.01-0.20); Immature Granulocytes % (auto) 0.4 %; Mean Corpuscular Hemoglobin 32.0 pg (25.0-34.0); Mean Corpuscular Volume 90.3 fL (80.0-100.0); Platelet Count 205 K/uL (130-400); RDW Standard Deviation 41.1 fL (36.4-46.3); Red Blood Count 4.63 M/uL (4.70-6.10); White Blood Count 7.28 K/ul (4.8-10.8)
[2024-12-16 10:37] LABS: Appearance Urine Clear (Clear); Glucose Urine UA Negative (Negative)
[2024-12-16 10:38] LABS: Alanine Aminotransferase 27.0 U/L (7-52); Albumin Globulin Ratio 1.6 (0.9-2); Albumin Level 4.2 gm/dl (3.4-5.0); Alkaline Phosphatase 58.0 U/L (34-104); Anion Gap 7.0 (3-11); Bilirubin,Total 1.1 mg/dl (0.2-1.0); Blood Urea Nitrogen 17.0 mg/dl (6-23); Calcium 9.5 mg/dl (8.6-10.3); Carbon Dioxide 25.0 mmol/L (21-32); Chloride 106.0 mmol/L (98-107); Creatinine Clr Calc Pharmacy 84.6 ml/min; Globulin 2.6 gm/dl (2.5-4.0); Glucose 93.0 mg/dl (70-99(Fasting)); Lipase 28.0 U/L (11-82); Potassium 4.0 mmol/L (3.5-5.1); Sodium 138.0 mmol/L (136-145); Total Protein 6.8 gm/dl (6.0-8.3)
--- NOTE | 2024-12-16 11:03 | CT Scan Report ---
ABDOMEN AND PELVIS CT WITHOUT CONTRAST CT DOSE: 1334.64 mGy.cm HISTORY: Acute left lower quadrant abdominal pain LLQ pain TECHNIQUE: Multiaxial CT images of the abdomen and pelvis were performed without contrast. A dose lo wering technique was utilized adhering to the principles of ALARA. COMPARISON STUDY: CT abdomen and pelvis 11/12/2024, PET/CT 11/08/2022, CT abdomen and pelvis 05/24/2022 FINDINGS: Mild cardiomegaly with dilation of the imaged ascending thoracic aorta, 4.3 cm. Moderate co ronary artery calcifications. No pneumatosis or pneumoperitoneum. The unenhanced spleen, pancreas and adrenal glands are unremarkable. Cholecystectomy. Hepatic steatosis. Hepatic cysts are again noted m easuring up to approximately 7 cm. Mild nonspecific bilateral perinephric stranding. 3.5 cm left renal cyst. No renal or ureteral calcul i or hydronephrosis. Decompressed urinary bladder. The prostate appears to be surgically absent. Athe rosclerosis of the aorta with tortuosity. No lymphadenopathy. Duodenal diverticula. No bowel obstruct ion or bowel wall thickening. Colonic diverticulosis with subtle acute diverticulitis of the descendi ng sigmoid junction, image 205 series 3. No abscess. Normal appendix. Postoperative changes of the a nterior abdominal wall with diastases recti and possible tiny fat filled umbilical hernias. Lumbar le voscoliosis. No acute fracture. IMPRESSION: 1. Subtle acute diverticulitis of the descending sigmoid junction. 2. No bowel obstruction, pneumoperitoneum or abscess. 3. Hepatic steatosis. 4. Incidental findings as above. IMPRESSION: No significant abnormality identified within the abdomen or pelvis. ACT 112: Negative or not required by law. The above report was generated using voice recognition software. It may contain grammatical, syntax o r spelling errors. Electronically signed by: Basilio Bush M.D. 12/16/2024 11:01 AM
[2024-12-16 11:34] LABS: INR 1.1 (0.9-1.1); Prothrombin Time 11.1 Seconds (9.0-12.0)
[2024-12-16] MEDS: PIPERACILLIN/TAZOBACTAM 4.5 GM/100 ML BAG IV ONE (11:44)
--- NOTE | 2024-12-16 12:23 | History & Physical Report ---
Date of Service December 16, 2024 Assessment & Plan (1) Diverticulitis: Plan This is a 79 year old male with a PMH of HTN, IBS - coming in with acute diverticulitis Acute Diverticulitis - CT suggestive of acute diverticulitis in the sigmoid junction; similar to previous CT on 11/12 - used Cipro + flagyl as an outpatient with no improvement - will keep NPO - IV fluids ordered - Zosyn ordered - PRN morphine for pain HTN - uncontrolled initially due to pain - as pain is improving, his BP is actually closer to baseline - hold oral meds for now as he is NPO - if needed will add IV antihypertensive DVT ppx - SCDs History of Present Illness Chief Complaint: Abdominal pain Primary Care Provider: Alyssa Perera MD This is a 79 year old male with a PMH of HTN, IBS - recently treated for acute diverticulitis as an outpatient with Cipro and Flagyl about 4 weeks prior; states that his pain got better for a short amount of time, but now the pain has returned. On arrival here, labs were drawn and no leukocytosis noted. Patient denies fevers, no nausea/vomiting/diarrhea. CT was then done and showed an acute diverticulitis. Decision made to admit due to failed outpatient treatment. Allergies Allergy/AdvReac Type Severity Reaction Status Date / Time Iodinated Contrast Media Allergy Severe SWELLING Verified 12/16/24 11:18 [Iodinated Contrast- Oral to head and IV Dye] Home Medications Medication Instructions Recorded Confirmed Type ascorbic acid (vitamin C) 500 mg 1,000 mg PO QAM 09/18/18 12/16/24 History tablet (Vitamin C) cholecalciferol (vitamin D3) 50 2,000 unit PO QPM 09/18/18 12/16/24 History mcg (2,000 unit) tablet (Vitamin D3) Carotomax 1 tab PO QPM 07/27/19 12/16/24 History dicyclomine 10 mg capsule 10 mg PO TID PRN abdominal pain. 05/23/22 12/16/24 Rx #30 caps lactobacillus combination no.9 4 4,000 mmu cells PO DAILY 06/14/23 12/16/24 History billion cell capsule (Adult 50 Plus Probiotic) zinc sulfate 50 mg zinc (220 mg) 50 mg PO DAILY 06/14/23 12/16/24 History tablet amoxicillin 500 mg tablet 2,000 mg (4 x 500 mg) PO ONCE PRN 02/17/24 12/16/24 Rx prophylaxis #4 tabs hydrochlorothiazide 50 mg tablet 50 mg PO QAM #90 tabs 03/16/24 12/16/24 Rx lisinopril 40 mg tablet 40 mg PO HS #90 tabs 03/16/24 12/16/24 Rx docusate sodium 100 mg capsule 100 mg PO BID 10/23/24 12/16/24 History (Colace) psyllium husk 3.4 gram/5.4 gram 1 tbsp PO DAILY PRN Constipation 10/23/24 12/16/24 History oral powder (Metamucil) triamcinolone acetonide 55 mcg 2 spray intranasal QAM PRN Other 10/23/24 12/16/24 History nasal spray aerosol (Nasacort) Past Med/Surg History Problem List (Updated 12/16/24 @ 11:59 by Enid He MD) Diverticulitis (Acute) Abdominal pain, LLQ (left lower quadrant) (Acute) LLQ pain Severe left groin pain Cellulitis of left ankle Cat bite Routine health maintenance Status post right knee replacement (~07/2022) Bowel habit changes IBS (irritable bowel syndrome) Constipation- recently started on Miralax - following with GI 06/21/22 Hypertension (Chronic) Benign prostatic hypertrophy (Acute) Abnormal LFTs (Acute) Biliary and gallbladder disorder (Acute) Vitamin D deficiency (Acute) Sleep disturbances (Acute) Rosacea (Acute) Laryngopharyngeal reflux (Acute) Irritable bowel syndrome (Acute) Chronic sinusitis (Acute) Chronic prostatitis (Acute) Benign essential hypertension (Acute) Allergic reaction to contrast material (Acute) Recurrent incisional hernia DVT prophylaxis Hypomagnesemia History of incisional hernia repair Cubital tunnel syndrome on right Ulnar neuropathy at elbow of right upper extremity COVID-19 (Acute) Acute upper respiratory infection Encounter for pre-operative examination Peripheral neuropathy Mandibular pain Localized swelling, mass and lump, neck Left sided abdominal pain Change in bowel movement Status post replacement of left shoulder joint (~10/2019) History of incisional hernia repair (10/06/18) Laparoscopic Incisional Hernia Repair with mesh, Open Ventral Hernia Repair Dr. Gonzalez 10/06/18 Prostate cancer (Chronic 08/22/17) Medical History History of prostate cancer History of COVID-19 Hypertension Osteoarthritis Surgical History History of total right knee replacement (TKR) History of cataract surgery S/P cubital tunnel release History of total replacement of left shoulder joint History of esophagogastroduodenoscopy (EGD) History of incisional hernia repair (08/03/19) History of colonoscopy History of incision and drainage Hx of prostatectomy H/O elbow surgery History of carpal tunnel release History of repair of rotator cuff History of total shoulder replacement History of cystoscopy History of tooth extraction History of cholecystectomy Family History Father Dementia Myocardial infarction Family history of diabetes mellitus Mother Cancer Family/Other Prostate cancer Brother Cancer Other No family history of adverse response to anesthesia Denies family history of Ovarian cancer Breast cancer Colorectal cancer Social History Smoking Status: Never smoker Tobacco Type: Cigarettes Age Started Using Tobacco: 16; Age Quit Using Tobacco: 18; packs per day: 0.3; Cigarettes Per Day: QUIT A TEENAGER; Second Hand Exposure: No; Do You Dip or Chew Tobacco: No (1989); Hx Alcohol Use: No Hx Substance Use: No Preferred Language: Turkish Communication Ability: Effective Visual Impairment: No Limitations Hearing Ability: Normal Silviculture Teacher Required: No Beliefs That Will Affect Care: None marital status: marital status details: 3 children Current Living Situation: Spouse current occupational status: employed and retired current occupation: [employer] How many Children do You have: 3 Feels Safe at Home: Yes Childhood Exposure to Second-Hand Smoke: No Diet: regular caffeine: Yes during the past year weight has: remained stable Dental Care, Regularly: Yes Physical Activity Frequency: Daily Seatbelt Use: always Sunscreen Use: Yes Assistive Devices: Glasses Review of Systems Review of Systems: Constitutional: No Weight Change, No Fever, No Chills, No Night Sweats, No Fatigue, No Malaise ENT/Mouth: No Hearing Changes, No Ear Pain, No Nasal Congestion, No Sinus Pain, No Hoarseness, No sore throat, No Rhinorrhea, No Swallowing Difficulty Eyes: No Eye Pain, No Swelling, No Redness, No Foreign Body, No Discharge, No Vision Changes Cardiovascular: No Chest Pain, No SOB, No PND, No Dyspnea on Exertion, No Orthopnea, No Claudication, No Edema, No Palpitations Respiratory: No Cough, No Sputum, No Wheezing, No Smoke Exposure, No Dyspnea Gastrointestinal: No Nausea, No Vomiting, No Diarrhea, No Constipation, +LLQ pain, No Heartburn, No Anorexia, No Dysphagia, No Hematochezia, No Melena, No Flatulence, No Jaundice Genitourinary: No Dysmenorrhea, No DUB, No Dyspareunia, No Dysuria, No Urinary Frequency, No Hematuria, No Urinary Incontinence, No Urgency, No Flank Pain, No Urinary Flow Changes, No Hesitancy Musculoskeletal: No Arthralgias, No Myalgias, No Joint Swelling, No Joint Stiffness, No Back Pain, No Neck Pain, No Injury History Skin: No Skin Lesions, No Pruritis, No Hair Changes, No Breast/Skin Changes, No Nipple Discharge Neuro: No Weakness, No Numbness, No Paresthesias, No Loss of Consciousness, No Syncope, No Dizziness, No Headache, No Coordination Changes, No Recent Falls Psych: No Anxiety/Panic, No Depression, No Insomnia, No Personality Changes, No Delusions, No Rumination, No SI/HI/AH/VH, No Social Issues, No Memory Changes, No Violence/Abuse Hx., No Eating Concerns Heme/Lymph: No Bruising, No Bleeding, No Transfusions History, No Lymp hadenopathy Endocrine: No Polyuria, No Polydipsia, No Temperature Intolerance Physical Exam Physical Exam: VITALS: Reviewed. WEIGHT/BMI reviewed. GEN: Healthy appearing, well-developed, NAD. PSYCH: Good Judgment. AOx3. Normal memory, mood, and affect. HEENT -Head: NC/AT; -Eyes: PERRL, EOMI. No discharge or redn ess; -Ears: External ears are normal. Normal TMs. -Nose: Normal nares. -Mouth and throat: MMM. Normal gums, muc arabella, palate,. Good dentition. NECK: Supple, with no masses. CV: RRR, no m/r/g. LUNGS: CTAB, no w/r/c. ABD: soft, +pain to palpation at LLQ : N/A SKIN: Warm, well perfused. No skin rashes or abnormal lesions. MSK: No deformities, Normal gait. EXT: No clubbing, cyanosis, or edema. NEURO: Ambulating with no limitations. Normal muscle strength and tone. No focal deficits. Results & Data Results & Data Vital Signs (Past 12 Hours) Vital Signs Temp Pulse Pulse Resp BP BP Pulse Ox 12/16/24 11:16 87 20 137/91 95 12/16/24 10:19 59 L 12/16/24 10:14 57 L 18 148/98 H 96 12/16/24 09:41 100 12/16/24 09:16 36.7 C 74 18 160/113 H 95 O2 Del Method 12/16/24 11:16 Room Air 12/16/24 10:19 12/16/24 10:14 Room Air 12/16/24 09:41 Room Air 12/16/24 09:16 Room Air PG Care Time/CCT Total # of Minutes Spent Total Time Spent with Patient: Total time spent is greater than 50% in coordination of care (as documented) at patient's floor/unit and/or counseling patient: Coding Level of Care Code 11809 INT INP/OBS CARE 255MIN Diagnoses Diverticulitis K57.92
[2024-12-16] MEDS: SODIUM CHLORIDE 0.9% 1,000 ML IV SCH (12:25)
[2024-12-16] MEDS ORDERED: ACETAMINOPHEN 325 MG TAB PO PRN (16:46)
[2024-12-16] MEDS ORDERED: MoRPHine SULFATE 2 MG/ML CARP IV PRN (16:46)
[2024-12-16] MEDS: PIPERACILLIN/TAZOBACTAM 4.5 GM/100 ML BAG IV SCH (18:09)
[2024-12-17] MEDS: ACETAMINOPHEN 1,000 MG/100 ML VIAL IV PRN (00:40)
[2024-12-17] MEDS ORDERED: MoRPHine SULFATE 4 MG/ML 1 ML CARP\\VIAL IV PRN (07:01)
[2024-12-17 07:32] VITALS: BP 142/93; PULSE 82; RESP 18; TEMP 97.7; O2SAT 95
[2024-12-17 08:00] LABS: Hematocrit (blood only) 40.8 % (42.0-52.0); Hemoglobin 14.6 g/dl (14.0-18.0); Immature Granulocytes # (auto) 0.01 K/uL (0.01-0.20); Immature Granulocytes % (auto) 0.1 %; Mean Corpuscular Hemoglobin 32.0 pg (25.0-34.0); Mean Corpuscular Volume 89.5 fL (80.0-100.0); Platelet Count 226 K/uL (130-400); RDW Standard Deviation 40.7 fL (36.4-46.3); Red Blood Count 4.56 M/uL (4.70-6.10); White Blood Count 6.77 K/ul (4.8-10.8)
[2024-12-17 08:17] LABS: Anion Gap 8.0 (3-11); Blood Urea Nitrogen 15.0 mg/dl (6-23); Calcium 9.2 mg/dl (8.6-10.3); Carbon Dioxide 25.0 mmol/L (21-32); Chloride 106.0 mmol/L (98-107); Creatinine Clr Calc Pharmacy 78.2 ml/min; Glucose 83.0 mg/dl (70-99(Fasting)); Potassium 3.7 mmol/L (3.5-5.1); Sodium 139.0 mmol/L (136-145)
--- NOTE | 2024-12-17 14:16 | Discharge Summary ---
Discharge Summary Date of Service December 17, 2024 Principal Dx & Hospital Course #1 = Principal Diagnosis (1) Diverticulitis: Plan This is a 79 year old male with a PMH of HTN, IBS - coming in with acute diverticulitis Acute Diverticulitis - CT suggestive of acute diverticulitis in the sigmoid junction; similar to previous CT on 11/12 - used Cipro + Flagyl as an outpatient with no improvement - will keep NPO - IV fluids ordered - Zosyn ordered - PRN morphine for pain 12/17 - patient is eager to get home - tolerating full liquid diet, denies any pain - will d/c with Augmentin (he has already tried Cipro + flagyl with no help) HTN - uncontrolled initially due to pain - as pain is improving, his BP is actually closer to baseline - hold oral meds for now as he is NPO - if needed will add IV antihypertensive DVT ppx - SCDs Admission HPI Per Admitting Provider This is a 79 year old male with a PMH of HTN, IBS - recently treated for acute diverticulitis as an outpatient with Cipro and Flagyl about 4 weeks prior; states that his pain got better for a short amount of time, but now the pain has returned. On arrival here, labs were drawn and no leukocytosis noted. Patient denies fevers, no nausea/vomiting/diarrhea. CT was then done and showed an acute diverticulitis. Decision made to admit due to failed outpatient treatment. Discharge Exam VITALS: Reviewed. WEIGHT/BMI reviewed. GEN: Healthy appearing, well-developed, NAD. PSYCH: Good Judgment. AOx3. Normal memory, mood, and affect. HEENT -Head: NC/AT; -Eyes: PERRL, EOMI. No discharge or redness; -Ears: External ears are normal. Normal TMs. -Nose: Normal nares. -Mouth and throat: MMM. Normal gums, mucosa, palate,. Good dentition. NECK: Supple, with no masses. CV: RRR, no m/r/g. LUNGS: CTAB, no w/r/c. ABD: soft, +pain to palpation at LLQ : N/A SKIN: Warm, well perfused. No skin rashes or abnormal lesions. MSK: No deformities, Normal gait. EXT: No clubbing, cyanosis, or edema. NEURO: Ambulating with no limitations. Normal muscle strength and tone. No focal deficits. Discharge Plan Discharge Items Patient Disposition: Home - Self-Care Reason For Visit: ACUTE DIVERTICULITIS Discharge Diagnosis: Acute Diverticulitis Condition on Discharge: Fair Activity: Resume your previous activity Non-emergency contact: Primary Care Provider Call non-emergency contact if: you have any medication questions, your symptoms worsen, your pain is not controlled, your pain is worsening, your pain is unusual for you, your pain is concerning for you and you have a fever Follow-up/Referrals: Alyssa Perera MD [Primary Care Provider] - Diet: Low Fiber Addtl Attending Provider Instructions: Please follow-up with your PCP in 5-7 days Pending Studies at Discharge: No Stand-Alone Forms: My [employer], Smoking Cessation Medications and DC Order Prescriptions: New amoxicillin-pot clavulanate 875-125 mg tablet 1 tab PO Q12H Qty: 7 0RF Continued zinc sulfate 50 mg zinc (220 mg) tablet 50 mg PO DAILY Adult 50 Plus Probiotic 4 billion cell capsule 4,000 mmu cells PO DAILY Rx Instructions: administer with a meal docusate sodium [Colace] 100 mg capsule 100 mg PO BID amoxicillin 500 mg tablet 2,000 mg PO ONCE PRN (Reason: prophylaxis) Qty: 4 2RF Rx Instructions: ONE HOUR PRIOR TO DENTAL PROCEDURE hydrochlorothiazide 50 mg tablet 50 mg PO QAM Qty: 90 3RF lisinopril 40 mg tablet 40 mg PO HS Qty: 90 3RF dicyclomine 10 mg capsule 10 mg PO TID PRN (Reason: abdominal pain.) Qty: 30 2RF ascorbic acid (vitamin C) [Vitamin C] 500 mg Tablet 1,000 mg PO QAM cholecalciferol (vitamin D3) [Vitamin D3] 2,000 unit Tablet 2,000 unit PO QPM Rx Instructions: lunchtime Carotomax 1 tab PO QPM Patient Comments: takes at lunch time Rx Instructions: lunchtime triamcinolone acetonide [Nasacort] 55 mcg aerosol,spray 2 spray INTRANASAL QAM PRN (Reason: Other) Discontinued Metamucil 3.4 gram/5.4 gram powder 1 tbsp PO DAILY PRN (Reason: Constipation) Discharge Orders: Discharge Order (Routine); Ordered 12/17/24 Ordered By: Teo Isidro/Other Patient Handouts: Low-Fiber Diet, Diverticulosis and Diverticulitis Admission Data Admit Date/Time: 12/16/24 14:32 Attending Provider: Teo Fox Admit Provider: Teo Fox Primary Care Provider: Alyssa Perera Other Providers: Teo Fox Hospital Stay Data Consultations 12/16/24 11:47 ED Decision to Admit Stat Diagnostic Imagining Performed 12/16/24 10:17 CT Abd and Pelvis [CT abd pelvis wo con] Stat Pending Results Patient Have Any Pending Studies at Discharge: No Discharge Instructions Given to Patient (Per Discharging Provider) Please follow-up with your PCP in 5-7 days Home Health Attestation I certify that this patient is under my care and that I, or a physicians graduate research assistant working with me, had a face to-face encounter that meets the home health [id number] encounter requirements with this patient. The encounter with the patient was in whole, or in part, for the following medical condition, which is the primary reason for home health care (list medical condition): I certify that, based on my findings, the following services are medically necessary home health services: My clinical findings support the need for the above services because: Further, I certify that my clinical findings support that this patient is homebound (i.e. absences from home require considerable and taxing effort and are for medical reasons or denominational services or infrequently or of short duration when for other reasons) because: Certification for Home Health Services: Based on the above findings, I certify that this patient is confined to the home and needs intermittent half-way care, physical therapy and/or speech therapy or continues to need occupational therapy. The patient is under my care, and I have initiated the establishment of the plan of care. This patient will be followed by a physician who will periodically review the plan of care. Total Time Total Time Spent Total Time Spent (In Minutes): 25 Coding Level of Care Code 01711 IN/OBS DISCH 30 MIN/LESS Diagnoses Diverticulitis K57.92 Time Spent (min) 25
== END 2024-12-17 15:02 | disposition home or self-care (01) | DRG 392 ==
LOC: ED 09:01 → INTOOBSV 14:32 → 3W 14:32